=== PATIENT | male | born 1930 | race Caucasian/White ===

== ENCOUNTER 2017-03-01 13:00 | Inpatient (IN) | payer MEDICARE, OTHER ==
[2017-03-01] MEDS ORDERED: Sodium Chloride 0.9% 5 ML Syringe FLUSH PRN (18:13)
--- NOTE | 2017-03-02 10:42 | PCM.HP ---
H&P History of Present Illness - General Date of Service: 03/02/17 Admit Problem/Dx: Admission Diagnosis/Problem Admission Diagnosis/Problem Weakness of limb Source of Information: Patient, Old Records History Limitations: Reports: No Limitations. Denies: Altered Mental Status left foot Pain Score (Numeric/FACES): 7 - Related Data Allergies/Adverse Reactions: Allergies Allergy/AdvReac Type Severity Reaction Status Date / Time No Known Allergies Allergy Verified 01/08/16 05:59 Home Medications: Home Meds Atenolol [Tenormin] 25 mg PO 1800 11/14/13 [History] Insulin Glargine,Hum.Rec.Anlog [Lantus Solostar] 24 units SQ DAILY 11/14/13 [ History] Sertraline [Zoloft] 50 mg PO BEDTIME 11/14/13 [History] Simvastatin [Zocor] 20 mg PO BEDTIME 11/14/13 [History] Lisinopril 10 mg PO 1800 01/11/16 [History] Aspirin [Ecotrin] 81 mg PO 1800 03/01/17 [History] Clopidogrel [Plavix] 75 mg PO 1800 03/01/17 [History] Lutein/Minerals/Vit A,C & E [Ocuvite] 1 tab PO BID 03/02/17 [History] Past Medical History HEENT History: Reports: Cataract, Impaired Vision Cardiovascular History: Reports: Bypass, CAD, Hypertension Gastrointestinal History: Reports: Chronic Constipation Musculoskeletal History: Reports: Osteoarthritis Psychiatric History: Reports: Depression Endocrine/Metabolic History: Reports: Diabetes, Type II - Past Surgical History HEENT Surgical History: Reports: Cataract Surgery, Tonsillectomy Cardiovascular Surgical History: Reports: Coronary Artery Bypass, Valve Replacement, Other (See Below) Social & Family History - Tobacco Use Smoking Status *Q: Former Smoker Years of Tobacco use: 40 Used Tobacco, but Quit: Yes Month Tobacco Last Used: 1978 Second Hand Smoke Exposure: No - Alcohol Use Days Per Week of Alcohol Use: 0 - Recreational Drug Use Recreational Drug Use: No - Living Situation & Occupation Living situation: Reports: Occupation: Disabled H&P Review of Systems - Review of Systems: Review Of Systems: See Below General: Reports: No Symptoms HEENT: Denies: Dysphasia, Hearing Changes, Sore Throat Pulmonary: Reports: No Symptoms Cardiovascular: Reports: No Symptoms Gastrointestinal: Reports: No Symptoms Genitourinary: Reports: No Symptoms Musculoskeletal: Reports: Other (Pain left great toe--stubbed it, left arm and left hand weakness) Skin: Reports: No Symptoms Psychiatric: Reports: No Symptoms Neurological: Reports: Numbness (Tingling sensation left hand), Pre-Existing Deficit, Weakness (Left arm and left hand), Other (Slight slurring of speech). Denies: Confusion, Dizziness, Headache, Paresthesia, Seizure, Syncope, Tremors Hematologic/Lymphatic: Reports: No Symptoms Immunologic: Reports: No Symptoms Exam - Exam Exam: See Below - Vital Signs Vital Signs: Last Vital Signs Temp 96.9 F 03/02/17 06:00 Pulse 64 03/02/17 06:00 Resp 16 03/02/17 06:00 BP 136/57 L 03/02/17 06:00 Pulse Ox 97 03/02/17 06:00 Weight: 200 lb - Exam Quality Assessment: No: Supplemental Oxygen General: Alert, Oriented, Cooperative, Mild Distress Neck: Supple, Carotid Bruit. No: JVD Lungs: Clear to Auscultation, Normal Respiratory Effort Cardiovascular: Systolic Murmur Abdomen: Normal Bowel Sounds, Soft Back Exam: No: CVA Tenderness (R) Peripheral Pulses: 1+: Radial (L), Radial (R) Skin: Warm, Dry, Intact Neurological: Sensation Intact, Focal Deficit. No: Strength Equal Bilateral ( Left hand 3/5 weakness), Normal Speech (Noticeable slight dysarthria, right- sided facial) Neuro Extensive - Mental Status: Alert, Normal Mood/Affect, Normal Cognition, Memory Intact Psychiatric: Alert, Normal Affect, Normal Mood - Patient Data Lab Results Last 24 hrs: Laboratory Results - last 24 hr 03/01/17 03/01/17 03/02/17 Range/Units 17:44 18:30 06:15 WBC (5.0-10.0) 10^3/uL RBC (4.50-6.00) 10^6/uL Hgb (13.0-17.0) g/dL Hct (40.0-52.0) % MCV (82.0-92.0) fL MCH (27.0-31.0) pg MCHC (32.0-36.0) g/dL RDW (11.5-14.5) % Plt Count (150-300) 10^3/uL MPV (7.4-10.4) fL Neut % (Auto) (50.0-70.0) % Lymph % (Auto) (20.0-40.0) % [place] % (Auto) (2.0-8.0) % Eos % (Auto) (1.0-3.0) % Baso % (Auto) (0.0-1.0) % Neut # (Auto) (2.5-7.0) 10^3/uL Lymph # (Auto) (1.0-4.0) 10^3/uL Nicol[place] # (Auto) (0.1-0.8) 10^3/uL Eos # (Auto) (0.1-0.3) 10^3/uL Baso # (Auto) (0.0-0.1) 10^3/uL POC Glucose 100 110 H (74-106) mg/dl Specimen Type Urinvoid Urine Color Yellow (YELLOW) Urine Appearance Clear (CLEAR) Urine pH 5.0 (5.0-9.0) Ur Specific [place] 1.015 (1.005-1.030) Urine Protein Trace H (NEGATIVE) mg/dL Urine Glucose (UA) Negative (NEGATIVE) mg/dL Urine Ketones Negative (NEGATIVE) mg/dL Urine Occult Blood Trace-intact H (NEGATIVE) Urine Nitrite Negative (NEGATIVE) Urine Bilirubin Negative (NEGATIVE) Urine Urobilinogen 0.2 (0.2-1.0) E.U./dL Ur Leukocyte Esterase Negative (NEGATIVE) Urine RBC 0-5 /HPF Urine WBC 0-5 /HPF Ur Epithelial Cells Rare /LPF Urine Bacteria Rare (NONE TO FEW) /HPF Urine Mucus Rare H (NEGATIVE) /LPF 03/02/17 Range/Units 07:10 WBC 10.3 H (5.0-10.0) 10^3/uL RBC 4.11 L (4.50-6.00) 10^6/uL Hgb 11.1 L (13.0-17.0) g/dL Hct 32.4 L (40.0-52.0) % MCV 78.8 L (82.0-92.0) fL MCH 27.1 (27.0-31.0) pg MCHC 34.3 (32.0-36.0) g/dL RDW 14.4 (11.5-14.5) % Plt Count 217 (150-300) 10^3/uL MPV 8.0 (7.4-10.4) fL Neut % (Auto) 77.3 H (50.0-70.0) % Lymph % (Auto) 10.1 L (20.0-40.0) % Nicol[place] % (Auto) 10.3 H (2.0-8.0) % Eos % (Auto) 1.9 (1.0-3.0) % Baso % (Auto) 0.4 (0.0-1.0) % Neut # (Auto) 8.0 H (2.5-7.0) 10^3/uL Lymph # (Auto) 1.0 (1.0-4.0) 10^3/uL [place] # (Auto) 1.1 H (0.1-0.8) 10^3/uL Eos # (Auto) 0.2 (0.1-0.3) 10^3/uL Baso # (Auto) 0.0 (0.0-0.1) 10^3/uL POC Glucose (74-106) mg/dl Specimen Type Urine Color (YELLOW) Urine Appearance (CLEAR) Urine pH (5.0-9.0) Ur Specific [place] (1.005-1.030) Urine Protein (NEGATIVE) mg/dL Urine Glucose (UA) (NEGATIVE) mg/dL Urine Ketones (NEGATIVE) mg/dL Urine Occult Blood (NEGATIVE) Urine Nitrite (NEGATIVE) Urine Bilirubin (NEGATIVE) Urine Urobilinogen (0.2-1.0) E.U./dL Ur Leukocyte Esterase (NEGATIVE) Urine RBC /HPF Urine WBC /HPF Ur Epithelial Cells /LPF Urine Bacteria (NONE TO FEW) /HPF Urine Mucus (NEGATIVE) /LPF Result Diagrams: 03/04/17 07:20 03/04/17 07:20 *Q Meaningful Use (ADM) - VTE *Q VTE Criteria *Q: - Stroke *Q Stroke Criteria *Q: - AMI *Q AMI Criteria *Q: Problem List Initiated/Reviewed/Updated: Yes Orders Last 24hrs: Active Orders 24 hr Category Date Time Status Patient Status [ADT] Routine ADT 03/01/17 17:00 Ordered Blood Glucose Check, Bedside [RC] 0700,1700 Care 03/01/17 17:30 Active Up With Assistance [RC] ASDIRECTED Care 03/01/17 18:13 Active Vital Signs [RC] Q8HR Care 03/01/17 22:00 Active Regular Diet [DIET] Diet 03/01/17 Dinner Active CULTURE BLOOD [BC] PRN Lab 03/01/17 18:25 Ordered CULTURE BLOOD [BC] PRN Lab 03/01/17 18:25 Ordered Sodium Chloride 0.9% [Syrex Flush] Med 03/01/17 18:13 Active 5 ml FLUSH Q8H PRN Blood Culture x2 Reflex Set [OM.PC] PRN Oth 03/01/17 18:25 Ordered Saline Lock Insert [OM.PC] Routine Oth 03/01/17 18:13 Ordered Resuscitation Status Routine Resus Stat 03/01/17 18:13 Ordered Medication Orders Sodium Chloride (Syrex Flush) 5 ml FLUSH Q8H PRN PRN Reason: Keep Vein Open Assessment/Plan Comment:: HISTORY OF PRESENT ILLNESS This 87-year-old gentleman was admitted yesterday due to having some weakness in his left leg with slight elevation in his white blood cell count 11.4 yesterday at the [facility]. The patient states approximately 2-3 weeks ago he noticed numbness and weakness into his left arm and numbness extending into his right hand making it difficult to hold any objects. He also fell about 3 days ago while gardening--he contributes to falling due to left leg weakness. He also stubbed his toe on his walker. When he fell he denied hitting his head or losing any consciousness however he did injure his left elbow with this noticeable skin tear. Back in September 2016 the patient presented via ground ambulance [facility] for questionable TIA symptoms in which he had right hand weakness, left eyelid drooping and left facial drooping. At that time the patient stated that he woke up out of his sleep with the symptoms however he had went to bed that evening without any symptoms. He had a head CT at that time which was negative and a carotid artery Doppler ultrasound which showed 70% stenosis of the right carotid artery or greater. He spent a couple days in the hospital he seemed to improve with his right hand back to normal at that time he had no speech changes no headaches or weakness or numbness or visual changes and he was discharged with the pending MRI scheduled. A few days after discharge patient did have his simvastatin decreased along with his Zetia which was discontinued as there was some thought his symptoms were more muscular related rather than neurovascular. He was to follow-up with Dr. Morales--vascular surgeon. Consultation with Dr. Morales, vascular surgeon indicated his symptoms at that time were likely due to left internal carotid artery stenosis and was to be managed medically which included changing from aspirin to Plavix and have him evaluated by neurology. Due to his age and lack of symptoms at that time there was no carotid intervention that was recommended. His neurology appointment is in April Head CT without contrast dated March 01, 2017; focal areas of decreased density right side superior aspect of right thalamus extending into posterior right frontal white matter--consistent with an infarct however appears old however new since comparable studies September 2016. CT brain dated September 2016, mild central and cortical cerebral atrophy and diffuse nonspecific degenerative white matter disease however no current evidence of intracranial mass hemorrhage or acute infarct MRI, brain without contrast, dated September 2016, (due to right hand weakness), Diffuse microvascular disease Communicating hydrocephalus, as noted with subependymal fluid resorption No MRI evidence of acute infarct Carotid artery ultrasound, dated October 2016, right internal carotid artery greater then 70% stenosis, left internal carotid artery less than 50% stenosis, right vertebral artery antegrade CODE STATUS, DO NOT RESUSCITATE IMPRESSION/PLAN Left-sided weakness, questionable etiology, PT consult today, continue with aspirin and Plavix, neurology appointment April, patient will have to be evaluated sooner Bilateral carotid artery stenosis, medically managed, Leukocytosis, mild, without identifiable occult infection, Chronic kidney disease, stage III, creatinine clearance approximately 25 History of possible TIA Diabetes mellitus, stable, Hypertension, stable, continue with TRAVIS inhibitor and atenolol Depression, stable, continue with Zoloft Hyperlipidemia, stable, may benefit from increased anti-inflammatory statin even though LDLs are low Aortic stenosis, asymptomatic
[2017-03-02] MEDS: Insulin Detemir 100 Units/ML 3 ML Pen SUBCUT SCH (11:39)
[2017-03-02] MEDS: Clopidogrel 75 MG Tab PO SCH (18:08)
[2017-03-02] MEDS: Aspirin 81 MG Tab.EC PO SCH (18:08)
[2017-03-02] MEDS: Lisinopril 10 MG Tab PO SCH (18:08)
[2017-03-02] MEDS: Atenolol 25 MG Tab PO SCH (18:09)
[2017-03-02] MEDS: Sertraline 50 MG Tab PO SCH (20:18)
[2017-03-02] MEDS: Simvastatin 20 MG Tab PO SCH (20:18)
[2017-03-03] MEDS: Insulin Detemir 100 Units/ML 3 ML Pen SUBCUT SCH (08:34)
--- NOTE | 2017-03-03 10:15 | PCM.PN ---
- General Info Date of Service: 03/03/17 Functional Status: Reports: pain controlled - Review of Systems General: Reports: Weakness (Left-sided upper extremity and lower extremity weakness) HEENT: Reports: no symptoms Pulmonary: Reports: no symptoms Cardiovascular: Reports: No Symptoms Gastrointestinal: Reports: No symptoms Genitourinary: Reports: no symptoms Musculoskeletal: Reports: other (Slight pain left great toe after stubbing). Denies: joint swelling Skin: Reports: other (Skin avulsion left elbow) Neurological: Reports: Pre-Existing Deficit, Difficulty Walking, Weakness (Left- sided upper extremity weakness), Change in Speech, Gait Disturbance. Denies: Confusion, Dizziness, Headache, Numbness Psychiatric: Reports: no symptoms - Patient Data Vitals - most recent: Last Vital Signs Temp 97.3 F 03/03/17 06:57 Pulse 54 L 03/03/17 06:57 Resp 16 03/03/17 06:57 BP 141/54 H 03/03/17 06:57 Pulse Ox 97 03/03/17 06:57 Weight - most recent: 200 lb I&O - last 24 hours: Intake & Output 03/02/17 03/03/17 03/03/17 22:59 06:59 14:59 Intake Total 340 200 Output Total 750 400 Balance -410 -200 Lab Results last 24 hrs: Laboratory Results - last 24 hr 03/03/17 Range/Units 06:17 POC Glucose 118 H (74-106) mg/dl Med Orders - Current: Current Medications Aspirin (Halfprin) 81 mg PO 1800 [facility] Last Admin: 03/02/17 18:08 Dose: 81 mg Atenolol (Tenormin) 25 mg PO 1800 [facility] Last Admin: 03/02/17 18:09 Dose: 25 mg Clopidogrel Bisulfate (Plavix) 75 mg PO 1800 [facility] Last Admin: 03/02/17 18:08 Dose: 75 mg Insulin Detemir (Levemir) 24 unit SUBCUT DAILY [facility] Last Admin: 03/03/17 08:34 Dose: 24 units Lisinopril (Prinivil) 10 mg PO 1800 [facility] Last Admin: 03/02/17 18:08 Dose: 10 mg Sertraline HCl (Zoloft) 50 mg PO BEDTIME [facility] Last Admin: 03/02/17 20:18 Dose: 50 mg Simvastatin (Zocor) 20 mg PO BEDTIME [facility] Last Admin: 03/02/17 20:18 Dose: 20 mg Sodium Chloride (Syrex Flush) 5 ml FLUSH Q8H PRN PRN Reason: Keep Vein Open - Exam Quality Assessment: No: supplemental oxygen General: alert, oriented, cooperative, no acute distress HEENT: Pupils equal, Pupils reactive, EOMI, Mucous membr. moist/pink Neck: supple Lungs: Clear to auscultation, Normal respiratory effort Cardiovascular: Murmurs Abdomen: bowel sounds present, soft, no tenderness, no distension Peripheral Pulses: 2+: Radial (L), Radial (R) Skin: other (Healing skin avulsion left elbow--present on admission due to fall) Neurological: normal tone, reflexes equal bilateral, sensation intact. No: normal gait, normal speech (Slight slurring on "S" sounds), strength equal bilateral (Fair [id number] test--on right side good on left, poor tracking of fingers,) Psy/Mental Status: alert, normal affect, normal mood. No: agitated - Problem List Review Problem List Initiated/Reviewed/Updated: Yes - My Orders Last 24 Hours: My Active Orders 03/02/17 10:46 Consult to Physical Therapy [PT Evaluation and Treatment] [CONS] Routine 03/02/17 11:00 Insulin Detemir [Levemir] 24 unit SUBCUT DAILY 03/02/17 11:39 Blood Glucose Check, Bedside [RC] 0700 03/02/17 13:00 Admission Status [Patient Status] [ADT] Routine 03/02/17 18:00 Aspirin [Halfprin] 81 mg PO 1800 Atenolol [Tenormin] 25 mg PO 1800 Clopidogrel [Plavix] 75 mg PO 1800 Lisinopril [Prinivil] 10 mg PO 1800 03/02/17 21:00 Sertraline [Zoloft] 50 mg PO BEDTIME Simvastatin [Zocor] 20 mg PO BEDTIME - Plan Plan:: HISTORY OF PRESENT ILLNESS This 87-year-old gentleman was admitted yesterday due to having some weakness in his left leg with slight elevation in his white blood cell count 11.4 yesterday at the [facility]. The patient states approximately 2-3 weeks ago he noticed numbness and weakness into his left arm and numbness extending into his right hand making it difficult to hold any objects. He also fell about 3 days ago while gardening--he contributes to falling due to left leg weakness. He also stubbed his toe on his walker. When he fell he denied hitting his head or losing any consciousness however he did injure his left elbow with this noticeable skin tear. Back in September 2016 the patient presented via ground ambulance [facility] for questionable TIA symptoms in which he had right hand weakness, left eyelid drooping and left facial drooping. At that time the patient stated that he woke up out of his sleep with the symptoms however he had went to bed that evening without any symptoms. He had a head CT at that time which was negative and a carotid artery Doppler ultrasound which showed 70% stenosis of the right carotid artery or greater. He spent a couple days in the hospital he seemed to improve with his right hand back to normal at that time he had no speech changes no headaches or weakness or numbness or visual changes and he was discharged with the pending MRI scheduled. A few days after discharge patient did have his simvastatin decreased along with his Zetia which was discontinued as there was some thought his symptoms were more muscular related rather than neurovascular. He was to follow-up with Dr. Morales--vascular surgeon. Consultation with Dr. Morales, vascular surgeon indicated his symptoms at that time were likely due to left internal carotid artery stenosis and was to be managed medically which included changing from aspirin to Plavix and have him evaluated by neurology. Due to his age and lack of symptoms at that time there was no carotid intervention that was recommended. His neurology appointment is in [place] Head CT without contrast dated March 01, 2017; focal areas of decreased density right side superior aspect of right thalamus extending into posterior right frontal white matter--consistent with an infarct however appears old however new since comparable studies September 2016. CT brain dated September 2016, mild central and cortical cerebral atrophy and diffuse nonspecific degenerative white matter disease however no current evidence of intracranial mass hemorrhage or acute infarct MRI, brain without contrast, dated September 2016, (due to right hand weakness), Diffuse microvascular disease Communicating hydrocephalus, as noted with subependymal fluid resorption No MRI evidence of acute infarct Carotid artery ultrasound, dated October 2016, right internal carotid artery greater then 70% stenosis, left internal carotid artery less than 50% stenosis, right vertebral artery antegrade CODE STATUS, DO NOT RESUSCITATE IMPRESSION/PLAN Left-sided weakness--likely due to CVA, some slight improvement today, noticeable dysarthria with "S" sounds, PT will evaluate the patient today to determine the level of mcfp care needed. continue with aspirin and Plavix, neurology appointment April. Bilateral carotid artery stenosis, medically managed due to comorbidities last age Leukocytosis, mild, without identifiable occult infection--improving. No fever. Chronic kidney disease, stage III, creatinine clearance approximately 25 History of possible TIA Diabetes mellitus, stable, Hypertension, stable, continue with TRAVIS inhibitor and atenolol Depression, stable, continue with Zoloft Hyperlipidemia, stable, may benefit from increased anti-inflammatory statin even though LDLs are low Aortic stenosis, asymptomatic Overall plan, management risk factors, statins, antihypertensives, blood glucose control, DAPT. Will see if patient can qualify for [facility] care either at [facility] or long-term care facility.
[2017-03-03] MEDS: Aspirin 81 MG Tab.EC PO SCH (17:31)
[2017-03-03] MEDS: Clopidogrel 75 MG Tab PO SCH (17:31)
[2017-03-03] MEDS: Lisinopril 10 MG Tab PO SCH (17:39)
[2017-03-03] MEDS: Atenolol 25 MG Tab PO SCH (17:40)
[2017-03-03] MEDS: Sertraline 50 MG Tab PO SCH (20:49)
[2017-03-03] MEDS: Simvastatin 20 MG Tab PO SCH (20:49)
[2017-03-04] MEDS: Insulin Detemir 100 Units/ML 3 ML Pen SUBCUT SCH (08:50)
--- NOTE | 2017-03-04 11:23 | PCM.PN ---
- General Info Date of Service: 03/04/17 Functional Status: Reports: pain controlled, tolerating diet. Denies: urinating , new symptoms - Review of Systems General: Reports: Weakness (left lower extremity and left upper extremity) HEENT: Reports: no symptoms Pulmonary: Reports: no symptoms Cardiovascular: Reports: No Symptoms Gastrointestinal: Reports: No symptoms Musculoskeletal: Reports: other (bilateral knee pain) Skin: Reports: other (skin tear left elbow) Neurological: Reports: Pre-Existing Deficit, Difficulty Walking, Weakness (left upper and lower extremity), Gait Disturbance. Denies: Confusion, Dizziness, Headache, Numbness, Change in Speech (mild residual dysarthric speech) - Patient Data Vitals - most recent: Last Vital Signs Temp 97 F 03/04/17 04:53 Pulse 55 L 03/04/17 04:53 Resp 18 03/04/17 04:53 BP 151/52 H 03/04/17 04:53 Pulse Ox 97 03/04/17 04:53 Weight - most recent: 200 lb I&O - last 24 hours: Intake & Output 03/03/17 03/04/17 03/04/17 22:59 06:59 14:59 Intake Total 680 100 Output Total 400 950 Balance 280 -850 Lab Results last 24 hrs: Laboratory Results - last 24 hr 03/04/17 03/04/17 03/04/17 Range/Units 06:06 07:20 07:20 WBC 10.9 H (5.0-10.0) 10^3/uL RBC 4.27 L (4.50-6.00) 10^6/uL Hgb 11.3 L (13.0-17.0) g/dL Hct 33.4 L (40.0-52.0) % MCV 78.2 L (82.0-92.0) fL MCH 26.5 L (27.0-31.0) pg MCHC 33.8 (32.0-36.0) g/dL RDW 14.3 (11.5-14.5) % Plt Count 214 (150-300) 10^3/uL MPV 8.2 (7.4-10.4) fL Neut % (Auto) 76.0 H (50.0-70.0) % Lymph % (Auto) 10.7 L (20.0-40.0) % [place] % (Auto) 9.9 H (2.0-8.0) % Eos % (Auto) 3.1 H (1.0-3.0) % Baso % (Auto) 0.3 (0.0-1.0) % Neut # (Auto) 8.3 H (2.5-7.0) 10^3/uL Lymph # (Auto) 1.2 (1.0-4.0) 10^3/uL [place] # (Auto) 1.1 H (0.1-0.8) 10^3/uL Eos # (Auto) 0.3 (0.1-0.3) 10^3/uL Baso # (Auto) 0.0 (0.0-0.1) 10^3/uL Sodium 139 (136-145) mmol/L Potassium 4.7 (3.3-5.3) mmol/L Chloride 105 (98-115) mmol/L Carbon Dioxide 25.1 (21.0-32.0) mmol/L BUN 37 H (6-25) mg/dL Creatinine 1.48 H (0.51-1.17) mg/dL Est Cr Clr Drug Dosing 31.17 mL/min Estimated GFR (MDRD) 45 mL/min Glucose 103 (70-110) mg/dL POC Glucose 103 (74-106) mg/dl Calcium 8.5 L (8.7-10.3) mg/dL Med Orders - Current: Current Medications Aspirin (Halfprin) 81 mg PO 1800 [facility] Last Admin: 03/03/17 17:31 Dose: 81 mg Atenolol (Tenormin) 25 mg PO 1800 [facility] Last Admin: 03/03/17 17:40 Dose: 25 mg Clopidogrel Bisulfate (Plavix) 75 mg PO 1800 [facility] Last Admin: 03/03/17 17:31 Dose: 75 mg Insulin Detemir (Levemir) 24 unit SUBCUT DAILY [facility] Last Admin: 03/04/17 08:50 Dose: 24 units Lisinopril (Prinivil) 10 mg PO 1800 [facility] Last Admin: 03/03/17 17:39 Dose: 10 mg Sertraline HCl (Zoloft) 50 mg PO BEDTIME [facility] Last Admin: 03/03/17 20:49 Dose: 50 mg Simvastatin (Zocor) 20 mg PO BEDTIME [facility] Last Admin: 03/03/17 20:49 Dose: 20 mg Sodium Chloride (Syrex Flush) 5 ml FLUSH Q8H PRN PRN Reason: Keep Vein Open - Exam Quality Assessment: No: supplemental oxygen General: alert, oriented Neck: supple Lungs: Clear to auscultation, Normal respiratory effort Cardiovascular: Regular Rate, Regular Rhythm Abdomen: bowel sounds present, soft, no tenderness, no distension Extremities: no edema Skin: other (healing avulsion left elbow) Wound/Incisions: healing well, drainage. No: erythema Neurological: no new focal deficit, normal tone, reflexes equal bilateral, sensation intact, cranial nerves intact. No: normal gait, normal speech ( improving speech however slightly dysarthric with S sounds) Psy/Mental Status: alert, normal affect, normal mood - Problem List Review Problem List Initiated/Reviewed/Updated: Yes - Plan Plan:: HISTORY OF PRESENT ILLNESS This 87-year-old gentleman was admitted yesterday due to having some weakness in his left leg with slight elevation in his white blood cell count 11.4 yesterday at the [facility]. The patient states approximately 2-3 weeks ago he noticed numbness and weakness into his left arm and numbness extending into his right hand making it difficult to hold any objects. He also fell about 3 days ago while gardening--he contributes to falling due to left leg weakness. He also stubbed his toe on his walker. When he fell he denied hitting his head or losing any consciousness however he did injure his left elbow with this noticeable skin tear. Back in September 2016 the patient presented via ground ambulance [facility] for questionable TIA symptoms in which he had right hand weakness, left eyelid drooping and left facial drooping. At that time the patient stated that he woke up out of his sleep with the symptoms however he had went to bed that evening without any symptoms. He had a head CT at that time which was negative and a carotid artery Doppler ultrasound which showed 70% stenosis of the right carotid artery or greater. He spent a couple days in the hospital he seemed to improve with his right hand back to normal at that time he had no speech changes no headaches or weakness or numbness or visual changes and he was discharged with the pending MRI scheduled. A few days after discharge patient did have his simvastatin decreased along with his Zetia which was discontinued as there was some thought his symptoms were more muscular related rather than neurovascular. He was to follow-up with Dr. Morales--vascular surgeon. Consultation with Dr. Morales, vascular surgeon indicated his symptoms at that time were likely due to left internal carotid artery stenosis and was to be managed medically which included changing from aspirin to Plavix and have him evaluated by neurology. Due to his age and lack of symptoms at that time there was no carotid intervention that was recommended. His neurology appointment is in April Head CT without contrast dated March 01, 2017; focal areas of decreased density right side superior aspect of right thalamus extending into posterior right frontal white matter--consistent with an infarct however appears old however new since comparable studies September 2016. CT brain dated September 2016, mild central and cortical cerebral atrophy and diffuse nonspecific degenerative white matter disease however no current evidence of intracranial mass hemorrhage or acute infarct MRI, brain without contrast, dated September 2016, (due to right hand weakness), Diffuse microvascular disease Communicating hydrocephalus, as noted with subependymal fluid resorption No MRI evidence of acute infarct Carotid artery ultrasound, dated October 2016, right internal carotid artery greater then 70% stenosis, left internal carotid artery less than 50% stenosis, right vertebral artery antegrade CODE STATUS, DO NOT RESUSCITATE IMPRESSION/PLAN cerebrovascular accident, 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 continue with aspirin and Plavix, neurology appointment April. Bilateral carotid artery stenosis, medically managed due to comorbidities. Leukocytosis, mild, without identifiable occult infection--improving. No fever. Chronic kidney disease, stage 3, creatinine clearance approximately 25 History of possible TIA Diabetes mellitus, stable, Hypertension, stable, continue with TRAVIS inhibitor and atenolol Depression, stable, continue with Zoloft Hyperlipidemia, stable, likely will not benefit from increase in statin therapy. Aortic stenosis, asymptomatic Overall plan, Will place in swing bed therapy tomorrow for care home care. continue with acute care due to high risk of ongoing CVA sequela since he had CVA while on dual antiplatelet therapy
[2017-03-04] MEDS: Aspirin 81 MG Tab.EC PO SCH (18:18)
[2017-03-04] MEDS: Clopidogrel 75 MG Tab PO SCH (18:18)
[2017-03-04] MEDS: Lisinopril 10 MG Tab PO SCH (18:19)
[2017-03-04] MEDS: Atenolol 25 MG Tab PO SCH (18:19)
[2017-03-04] MEDS: Simvastatin 20 MG Tab PO SCH (20:42)
[2017-03-04] MEDS: Sertraline 50 MG Tab PO SCH (20:42)
[2017-03-05 06:47] VITALS: BP 153/62
[2017-03-05] MEDS ORDERED: Acetaminophen 325 MG Tab PO PRN (08:13)
[2017-03-05] MEDS: Insulin Detemir 100 Units/ML 3 ML Pen SUBCUT SCH (09:35)
--- NOTE | 2017-03-05 09:37 | PCM.DCSUM1 ---
Discharge Summary - Hospital Course Brief History: This 87-year-old gentleman was initially admitted due to having some weakness in his left leg with slight elevation in his white blood cell count without an obvious identifiable infection. upon admission to acute care he stated about 2 weeks prior to admission he noticed numbness and weakness into his left arm and numbness extending into his left hand making it difficult to hold any objects. 3 days prior to being admitted and evaluated he stated he sustained a fall while gardening she contributes to left leg weakness--denying any head injury. during that fall he injured his left elbow, and his left wrist sustaining avulsion tear of his left elbow. patient does have histories of previous TIAs in September 2016 and has been evaluated by Dr. Morales, vascular surgeon indicated his symptoms at that time were likely due to left internal carotid artery stenosis and was to be managed medically which included changing from aspirin to Plavix and have him evaluated by neurology. Due to his age and lack of symptoms at that time there was no carotid surgical intervention that was recommended. he is also scheduled in April to see a neurologist. - Discharge Data Discharge Date: 03/05/17 Discharge Disposition: DC/Tfer W/I Hosp To Swing 61 Condition: Good - Patient Summary/Data Complications: none Consults: Consultations 03/02/17 10:46 Consult to Physical Therapy [PT Evaluation and Treatment] [CONS] Routine 03/04/17 11:54 Consult to Speech Language Pathology [CRUISE DIRECTOR Evaluation and Treatment] [CONS] Routine Hospital Course: patient's hospital course went well, he had no complications however he did improve on his neurological assessment including slightly improved his speech and less facial drooping. He still has a left-sided weakness and residual and will receive physical therapy. He did complain of left wrist pain however x- rays were negative for any fractures his pain likely contributed to when he fell in his garden prior to being admitted. No edema or swelling however some bilateral tenderness around his left wrist. He never became hemodynamically unstable, he never sustained a fall while in the hospital, he did receive physical therapy and they felt 4-6 weeks of rehabilitation. He is at a substantial fall risk. We felt increasing his statin dose most likely would not be any added benefit to him. - Discharge Plan Home Medications: Home Meds Atenolol [Tenormin] 25 mg PO 1800 11/14/13 [History] Insulin Glargine,Hum.Rec.Anlog [Lantus Solostar] 24 units SQ DAILY 11/14/13 [ History] Sertraline [Zoloft] 50 mg PO BEDTIME 11/14/13 [History] Simvastatin [Zocor] 20 mg PO BEDTIME 11/14/13 [History] Lisinopril 10 mg PO 1800 01/11/16 [History] Aspirin [Ecotrin] 81 mg PO 1800 03/01/17 [History] Clopidogrel [Plavix] 75 mg PO 1800 03/01/17 [History] Lutein/Minerals/Vit A,C & E [Ocuvite] 1 tab PO BID 03/02/17 [History] - Discharge Summary/Plan Comment DC Time >30 min.: Yes Discharge Summary/Plan Comment: final diagnosis CVA; right thalamus extending into posterior right frontal white matter, Bilateral carotid artery stenosis Chronic kidney disease, stage 3 History of possible TIA Diabetes mellitus, stable, Hypertension, stable, Depression, stable, Hyperlipidemia, stable, Aortic stenosis, asymptomatic disposition Due to the patient's CVA he will require 4-6 weeks of [facility] facility for rehabilitation. Patient desires to be placed in swing bed status here at [facility] - Patient Data Vitals - Most Recent: Last Vital Signs Temp 97.3 F 03/05/17 06:46 Pulse 71 03/05/17 06:46 Resp 20 03/05/17 06:46 BP 153/62 H 03/05/17 06:46 Pulse Ox 97 03/05/17 06:46 Weight - Most Recent: 200 lb I&O - Last 24 hours: Intake & Output 03/04/17 03/05/17 03/05/17 22:59 06:59 14:59 Intake Total 380 100 Output Total 1000 1100 Balance -620 -1000 Lab Results - Last 24 hrs: Laboratory Results - last 24 hr 03/05/17 Range/Units 05:58 POC Glucose 130 H (74-106) mg/dl Med Orders - Current: Current Medications Acetaminophen (Tylenol) 650 mg PO Q4H PRN PRN Reason: Pain Aspirin (Halfprin) 81 mg PO 1800 [facility] Last Admin: 03/04/17 18:18 Dose: 81 mg Atenolol (Tenormin) 25 mg PO 1800 [facility] Last Admin: 03/04/17 18:19 Dose: 25 mg Clopidogrel Bisulfate (Plavix) 75 mg PO 1800 [facility] Last Admin: 03/04/17 18:18 Dose: 75 mg Insulin Detemir (Levemir) 24 unit SUBCUT DAILY [facility] Last Admin: 03/04/17 08:50 Dose: 24 units Lisinopril (Prinivil) 10 mg PO 1800 [facility] Last Admin: 03/04/17 18:19 Dose: 10 mg Sertraline HCl (Zoloft) 50 mg PO BEDTIME [facility] Last Admin: 03/04/17 20:42 Dose: 50 mg Simvastatin (Zocor) 20 mg PO BEDTIME [facility] Last Admin: 03/04/17 20:42 Dose: 20 mg Sodium Chloride (Syrex Flush) 5 ml FLUSH Q8H PRN PRN Reason: Keep Vein Open *Q Meaningful Use (DIS) - VTE *Q VTE Criteria *Q: - Stroke *Q Stroke Criteria *Q: - AMI *Q AMI Criteria *Q:
== END 2017-03-05 09:15 | disposition swing bed (61) | DRG 65 ==
LOC: KA.MS 13:00 → OBSVTOIN 03-02 13:00
PROVIDERS: ADMIT Internal Medicine; ATTEND Family Medicine
DX: I63.9 Cerebral infarction, unspecified (principal); G81.94 Hemiplegia, unspecified affecting left nondominant side; D72.829 Elevated white blood cell count, unspecified; I65.23 Occlusion and stenosis of bilateral carotid arteries; I12.9 Hypertensive chronic kidney disease with stage 1 through stage 4 chronic kidney disease, or unspecified chronic kidney disease; N18.3 Chronic kidney disease, stage 3 (moderate); E11.9 Type 2 diabetes mellitus without complications; E78.5 Hyperlipidemia, unspecified; I35.0 Nonrheumatic aortic (valve) stenosis; F32.9 Major depressive disorder, single episode, unspecified; I25.10 Atherosclerotic heart disease of native coronary artery without angina pectoris; S51.002A Unspecified open wound of left elbow, initial encounter; W18.39XA Other fall on same level, initial encounter; Z95.5 Presence of coronary angioplasty implant and graft; Y92.017 Garden or yard in single-family (private) house as the place of occurrence of the external cause; Z66 Do not resuscitate; Z95.1 Presence of aortocoronary bypass graft; Z79.82 Long term (current) use of aspirin; Z79.4 Long term (current) use of insulin; Z79.899 Other long term (current) drug therapy; Z87.891 Personal history of nicotine dependence; Z91.81 History of falling; R53.1 Weakness; R29.6 Repeated falls
CPT/HCPCS: 36415; 70450; 71020; 81001; 82962 ×2; 85025; G0378; G0379; J1815; 73110-LT; 80048; 97110-GP; 97162-GP; A9270-GY; G0283-GP

== ENCOUNTER 2017-03-05 08:41 | Inpatient (IN) | payer MEDICARE, OTHER ==
[2017-03-05] MEDS ORDERED: Sodium Chloride 0.9% 5 ML Syringe FLUSH PRN (10:06)
--- NOTE | 2017-03-05 10:16 | PCM.HP ---
H&P History of Present Illness - General Date of Service: 03/05/17 Admit Problem/Dx: Admission Diagnosis/Problem Admission Diagnosis/Problem CVA, Cerebrovascular accident Source of Information: Patient, Provider, RN History Limitations: Reports: No Limitations - History of Present Illness Initial Comments - Free Text/Narative: 87-year-old gentleman was initially admitted due to having some weakness in his left leg with mild elevation in his white blood cell count at [facility]. 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 He also admitted to falling 3 days prior to admission while he was gardening however he denied hitting his head. He did sustain a left elbow avulsion and a contusion to his left wrist. When he fell he denied hitting his head or losing any consciousness September 2016 the patient presented via ground ambulance [facility] for questionable TIA symptoms in which he had right hand weakness, left eyelid drooping and left facial drooping. At that time the patient stated that he woke up out of his sleep with the symptoms however he had went to bed that evening without any symptoms. head CT at that time was negative and a carotid artery Doppler ultrasound which showed 70% stenosis of the right carotid artery or greater. He spent a couple days in the hospital he seemed to improve with his right hand back to normal at that time he had no speech changes no headaches or weakness or numbness or visual changes and he was discharged with the pending MRI scheduled. A few days after discharge patient did have his simvastatin decreased along with his Zetia which was discontinued as there was some thought his symptoms were more muscular related rather than neurovascular. He was to follow-up with Dr. Morales--vascular surgeon. He then saw Dr. Morales, vascular surgeon indicated his symptoms at that time were likely due to left internal carotid artery stenosis and was to be managed medically which included changing from aspirin to Plavix and have him evaluated by neurology--in which he is scheduled in April. His advice of the time was his age and lack of symptoms at that time there was no carotid intervention that was recommended. - Related Data Allergies/Adverse Reactions: Allergies Allergy/AdvReac Type Severity Reaction Status Date / Time No Known Allergies Allergy Verified 01/08/16 05:59 Home Medications: Home Meds Atenolol [Tenormin] 25 mg PO 1800 11/14/13 [History] Insulin Glargine,Hum.Rec.Anlog [Lantus Solostar] 24 units SQ DAILY 11/14/13 [ History] Sertraline [Zoloft] 50 mg PO BEDTIME 11/14/13 [History] Simvastatin [Zocor] 20 mg PO BEDTIME 11/14/13 [History] Lisinopril 10 mg PO 1800 01/11/16 [History] Aspirin [Ecotrin] 81 mg PO 1800 03/01/17 [History] Clopidogrel [Plavix] 75 mg PO 1800 03/01/17 [History] Lutein/Minerals/Vit A,C & E [Ocuvite] 1 tab PO BID 03/02/17 [History] Past Medical History HEENT History: Reports: Cataract, Impaired Vision Cardiovascular History: Reports: Bypass, CAD, Hypertension Gastrointestinal History: Reports: Chronic Constipation Musculoskeletal History: Reports: Osteoarthritis Psychiatric History: Reports: Depression Endocrine/Metabolic History: Reports: Diabetes, Type II - Past Surgical History HEENT Surgical History: Reports: Cataract Surgery, Tonsillectomy Cardiovascular Surgical History: Reports: Coronary Artery Bypass, Valve Replacement, Other (See Below) Social & Family History - Tobacco Use Smoking Status *Q: Former Smoker Years of Tobacco use: 40 Used Tobacco, but Quit: Yes Month Tobacco Last Used: 1978 Second Hand Smoke Exposure: No - Alcohol Use Days Per Week of Alcohol Use: 0 - Recreational Drug Use Recreational Drug Use: No - Living Situation & Occupation Living situation: Reports: Occupation: Disabled H&P Review of Systems - Review of Systems: Review Of Systems: See Below General: Reports: Weakness (Left-sided leg weakness and left-sided upper extremity weakness) HEENT: Reports: No Symptoms Pulmonary: Reports: No Symptoms Cardiovascular: Reports: No Symptoms Gastrointestinal: Reports: No Symptoms Genitourinary: Reports: No Symptoms Musculoskeletal: Reports: Other (Left wrist pain,). Denies: Joint Swelling Skin: Reports: Wound (Left elbow avulsion skin tear), Other (Skin tear left elbow) Psychiatric: Reports: No Symptoms Neurological: Reports: Pre-Existing Deficit, Trouble Speaking (Difficulty with S sounds, some dysarthria), Difficulty Walking, Weakness, Change in Speech, Gait Disturbance. Denies: Confusion, Dizziness, Headache, Numbness, Paresthesia Hematologic/Lymphatic: Reports: No Symptoms Immunologic: Reports: No Symptoms Exam - Exam Exam: See Below - Vital Signs Weight: 200 lb - Exam Quality Assessment: No: Supplemental Oxygen General: Alert, Oriented, Cooperative. No: Mild Distress HEENT: PERRLA, Hearing Intact, Mucosa Moist & Yetter, Nares Patent, Normal Nasal Septum, Posterior Pharynx Clear, Conjunctiva Clear, EOMI, EACs Clear, TMs Clear Neck: Supple, Trachea Midline, 2 Lungs: Clear to Auscultation, Normal Respiratory Effort Cardiovascular: Regular Rate, Regular Rhythm Abdomen: Normal Bowel Sounds, Soft Rectal (Males) Exam: Deferred Back Exam: No: CVA Tenderness (L), CVA Tenderness (R) Extremities: Other (Left wrist tenderness, no deformity) Peripheral Pulses: 1+: Radial (L), 2+: Radial (R) Skin: Wound (Healing skin avulsion/tear left elbow) Neurological: Normal Tone, Sensation Intact, Abnormal Gait. No: Strength Equal Bilateral (LLU, 3/5 weakness. ), Normal Speech, Reflexes Unequal Neuro Extensive - Mental Status: Alert, Oriented x3, Normal Mood/Affect, Normal Cognition Psychiatric: Alert, Normal Affect, Normal Mood *Q Meaningful Use (ADM) - VTE *Q VTE Criteria *Q: - Stroke *Q Stroke Criteria *Q: - AMI *Q AMI Criteria *Q: Problem List Initiated/Reviewed/Updated: Yes Orders Last 24hrs: Active Orders 24 hr Category Date Time Status Admission Status [Patient Status] [ADT] Routine ADT 03/05/17 10:08 Ordered Blood Glucose Check, Bedside [RC] DAILY Care 03/05/17 10:06 Ordered Up With Assistance [RC] ASDIRECTED Care 03/05/17 10:06 Ordered Vital Signs [RC] Q8HR Care 03/05/17 10:06 Ordered Consult to Physical Therapy [PT Evaluation and Cons 03/05/17 10:06 Ordered Treatment] [CONS] Routine Consult to Speech Language Pathology [SYSTEMS DEVELOPMENT MANAGER Evaluation Cons 03/05/17 10:06 Ordered and Treatment] [CONS] Routine Regular Diet [DIET] Diet 03/05/17 Dinner Ordered Acetaminophen [Tylenol] Med 03/05/17 10:06 Ordered 650 mg PO Q4H PRN Aspirin [Halfprin] Med 03/05/17 18:00 Ordered 81 mg PO 1800 Atenolol [Tenormin] Med 03/05/17 18:00 Ordered 25 mg PO 1800 Clopidogrel [Plavix] Med 03/05/17 18:00 Ordered 75 mg PO 1800 Insulin Detemir [Levemir] Med 03/06/17 09:00 Ordered 24 unit SUBCUT DAILY Lisinopril [Prinivil] Med 03/05/17 18:00 Ordered 10 mg PO 1800 Sertraline [Zoloft] Med 03/05/17 21:00 Ordered 50 mg PO BEDTIME Simvastatin [Zocor] Med 03/05/17 21:00 Ordered 20 mg PO BEDTIME Sodium Chloride 0.9% [Syrex Flush] Med 03/05/17 10:06 Ordered 5 ml FLUSH Q8H PRN Saline Lock Insert [OM.PC] Routine Oth 03/05/17 10:06 Ordered Resuscitation Status Routine Resus Stat 03/05/17 10:08 Ordered Medication Orders Acetaminophen (Tylenol) 650 mg PO Q4H PRN PRN Reason: Pain Aspirin (Halfprin) 81 mg PO 1800 MELY Atenolol (Tenormin) 25 mg PO 1800 MELY Clopidogrel Bisulfate (Plavix) 75 mg PO 1800 MELY Insulin Detemir (Levemir) 24 unit SUBCUT DAILY MELY Lisinopril (Prinivil) 10 mg PO 1800 MELY Sertraline HCl (Zoloft) 50 mg PO BEDTIME MELY Simvastatin (Zocor) 20 mg PO BEDTIME MELY Sodium Chloride (Syrex Flush) 5 ml FLUSH Q8H PRN PRN Reason: Keep Vein Open Assessment/Plan Comment:: HISTORY OF PRESENT ILLNESS 87-year-old gentleman was initially admitted due to having some weakness in his left leg with mild elevation in his white blood cell count at [facility]. 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 He also admitted to falling 3 days prior to admission while he was gardening however he denied hitting his head. He did sustain a left elbow avulsion and a contusion to his left wrist. When he fell he denied hitting his head or losing any consciousness September 2016 the patient presented via ground ambulance [facility] for questionable TIA symptoms in which he had right hand weakness, left eyelid drooping and left facial drooping. At that time the patient stated that he woke up out of his sleep with the symptoms however he had went to bed that evening without any symptoms. head CT at that time was negative and a carotid artery Doppler ultrasound which showed 70% stenosis of the right carotid artery or greater. He spent a couple days in the hospital he seemed to improve with his right hand back to normal at that time he had no speech changes no headaches or weakness or numbness or visual changes and he was discharged with the pending MRI scheduled. A few days after discharge patient did have his simvastatin decreased along with his Zetia which was discontinued as there was some thought his symptoms were more muscular related rather than neurovascular. He was to follow-up with Dr. Morales--vascular surgeon. He then saw Dr. Morales, vascular surgeon indicated his symptoms at that time were likely due to left internal carotid artery stenosis and was to be managed medically which included changing from aspirin to Plavix and have him evaluated by neurology--in which he is scheduled in April. His advice of the time was his age and lack of symptoms at that time there was no carotid intervention that was recommended. DIAGNOSTICS Head CT without contrast dated March 01, 2017; focal areas of decreased density right side superior aspect of right thalamus extending into posterior right frontal white matter--consistent with an infarct however appears old however new since comparable studies September 2016. CT brain dated September 2016, mild central and cortical cerebral atrophy and diffuse nonspecific degenerative white matter disease however no current evidence of intracranial mass hemorrhage or acute infarct MRI, brain without contrast, dated September 2016, (due to right hand weakness), Diffuse microvascular disease Communicating hydrocephalus, as noted with subependymal fluid resorption No MRI evidence of acute infarct Carotid artery ultrasound, dated October 2016, right internal carotid artery greater then 70% stenosis, left internal carotid artery less than 50% stenosis, right vertebral artery antegrade CODE STATUS, DO NOT RESUSCITATE IMPRESSION/PLAN CVA; with ongoing left-sided residual, he will receive physical therapy here for rehabilitation 4-6 weeks. Noticeable progress. Continue with aspirin and Plavix, neurology appointment April. Bilateral carotid artery stenosis, medically managed Chronic kidney disease, stage 3, creatinine clearance approximately 25 History of possible TIA Diabetes mellitus, stable, Hypertension, stable, continue with TRAVIS inhibitor and atenolol Depression, stable, continue with Zoloft Hyperlipidemia, stable, likely will not benefit from increase in statin therapy. Aortic stenosis, asymptomatic
[2017-03-05] MEDS: Aspirin 81 MG Tab.EC PO SCH (18:20)
[2017-03-05] MEDS: Clopidogrel 75 MG Tab PO SCH (18:20)
[2017-03-05] MEDS: Lisinopril 10 MG Tab PO SCH (18:21)
[2017-03-05] MEDS: Atenolol 25 MG Tab PO SCH (18:21)
[2017-03-05] MEDS: Simvastatin 20 MG Tab PO SCH (21:34)
[2017-03-05] MEDS: Sertraline 50 MG Tab PO SCH (21:34)
[2017-03-06] MEDS: Insulin Detemir 100 Units/ML 3 ML Pen SUBCUT SCH (08:45)
[2017-03-06] MEDS: Lutein/Minerals/Vitamins A, C & E Tab PO SCH ×2 (08:58→20:48)
[2017-03-06] MEDS: Aspirin 81 MG Tab.EC PO SCH (18:01)
[2017-03-06] MEDS: Clopidogrel 75 MG Tab PO SCH (18:04)
[2017-03-06] MEDS: Atenolol 25 MG Tab PO SCH (18:04)
[2017-03-06] MEDS: Lisinopril 10 MG Tab PO SCH (18:05)
[2017-03-06] MEDS: Sertraline 50 MG Tab PO SCH (20:48)
[2017-03-06] MEDS: Simvastatin 20 MG Tab PO SCH (20:48)
[2017-03-07] MEDS: Insulin Detemir 100 Units/ML 3 ML Pen SUBCUT SCH (08:16)
[2017-03-07] MEDS: Lutein/Minerals/Vitamins A, C & E Tab PO SCH ×2 (08:16→22:09)
[2017-03-07] MEDS: Clopidogrel 75 MG Tab PO SCH (18:08)
[2017-03-07] MEDS: Aspirin 81 MG Tab.EC PO SCH (18:08)
[2017-03-07] MEDS: Atenolol 25 MG Tab PO SCH (18:09)
[2017-03-07] MEDS: Lisinopril 10 MG Tab PO SCH (18:09)
[2017-03-07] MEDS: Sertraline 50 MG Tab PO SCH (20:34)
[2017-03-07] MEDS: Simvastatin 20 MG Tab PO SCH (20:34)
[2017-03-08] MEDS: Insulin Detemir 100 Units/ML 3 ML Pen SUBCUT SCH (08:42)
[2017-03-08] MEDS: Lutein/Minerals/Vitamins A, C & E Tab PO SCH ×2 (08:42→20:58)
--- NOTE | 2017-03-08 09:24 | PCM.PN ---
- General Info Date of Service: 03/08/17 Functional Status: Reports: pain controlled, tolerating diet, ambulating. Denies: new symptoms - Review of Systems General: Reports: Weakness (Although still left-sided upper and lower extremity weakness this has improved) HEENT: Reports: dysphasia Pulmonary: Reports: no symptoms Cardiovascular: Reports: No Symptoms Gastrointestinal: Reports: No symptoms Genitourinary: Reports: no symptoms Musculoskeletal: Reports: no symptoms Skin: Reports: other (Healing skin tear/avulsion left elbow) Neurological: Reports: Pre-Existing Deficit, Difficulty Walking, Gait Disturbance. Denies: Confusion, Dizziness, Headache, Numbness, Tremors Psychiatric: Reports: no symptoms - Patient Data Vitals - most recent: Last Vital Signs Temp 98.0 F 03/08/17 06:15 Pulse 71 03/08/17 06:15 Resp 20 03/08/17 06:15 BP 127/57 L 03/08/17 06:15 Pulse Ox 97 03/08/17 06:15 Weight - most recent: 200 lb I&O - last 24 hours: Intake & Output 03/07/17 03/08/17 03/08/17 22:59 06:59 14:59 Intake Total 555 50 Output Total 550 900 Balance 5 -850 Med Orders - Current: Current Medications Acetaminophen (Tylenol) 650 mg PO Q4H PRN PRN Reason: Pain Aspirin (Halfprin) 81 mg PO 1800 [facility] Last Admin: 03/07/17 18:08 Dose: 81 mg Atenolol (Tenormin) 25 mg PO 1800 [facility] Last Admin: 03/07/17 18:09 Dose: 25 mg Clopidogrel Bisulfate (Plavix) 75 mg PO 1800 [facility] Last Admin: 03/07/17 18:08 Dose: 75 mg Insulin Detemir (Levemir) 24 unit SUBCUT DAILY [facility] Last Admin: 03/08/17 08:42 Dose: 24 units Lisinopril (Prinivil) 10 mg PO 1800 [facility] Last Admin: 03/07/17 18:09 Dose: 10 mg Multivitamins/Minerals (Ocuvite) 1 each PO BID [facility] Last Admin: 03/08/17 08:42 Dose: 1 each Sertraline HCl (Zoloft) 50 mg PO BEDTIME [facility] Last Admin: 03/07/17 20:34 Dose: 50 mg Simvastatin (Zocor) 20 mg PO BEDTIME [facility] Last Admin: 03/07/17 20:34 Dose: 20 mg - Exam Quality Assessment: No: supplemental oxygen General: alert, oriented Neck: no JVD, carotid bruit (Left-sided carotid bruit) Lungs: Clear to auscultation, Normal respiratory effort Cardiovascular: Regular Rate, Regular Rhythm, Murmurs. No: Irregular Rhythm, Bradycardia, Tachycardia Abdomen: bowel sounds present, soft, no tenderness, no distension Back Exam: No: CVA Tenderness (R) Extremities: no edema Peripheral Pulses: 2+: Radial (L), Radial (R) Wound/Incisions: healing well (Left elbow avulsion healing well), no drainage Neurological: normal tone, sensation intact. No: normal gait, normal speech ( Slight dysphonia dysarthria--especially with S sounds), strength equal bilateral (Upper and lower extremities right 5/5, left upper and lower extremities 2/5) Psy/Mental Status: alert, normal affect, normal mood - Problem List Review Problem List Initiated/Reviewed/Updated: Yes - Plan Plan:: HISTORY OF PRESENT ILLNESS 87-year-old gentleman was initially admitted due to having some weakness in his left leg with mild elevation in his white blood cell count at [facility]. 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 He also admitted to falling 3 days prior to admission while he was gardening however he denied hitting his head. He did sustain a left elbow avulsion and a contusion to his left wrist. When he fell he denied hitting his head or losing any consciousness September 2016 the patient presented via ground ambulance [facility] for questionable TIA symptoms in which he had right hand weakness, left eyelid drooping and left facial drooping. At that time the patient stated that he woke up out of his sleep with the symptoms however he had went to bed that evening without any symptoms. head CT at that time was negative and a carotid artery Doppler ultrasound which showed 70% stenosis of the right carotid artery or greater. He spent a couple days in the hospital he seemed to improve with his right hand back to normal at that time he had no speech changes no headaches or weakness or numbness or visual changes and he was discharged with the pending MRI scheduled. A few days after discharge patient did have his simvastatin decreased along with his Zetia which was discontinued as there was some thought his symptoms were more muscular related rather than neurovascular. He was to follow-up with Dr. Morales--vascular surgeon. He then saw Dr. Morales, vascular surgeon indicated his symptoms at that time were likely due to left internal carotid artery stenosis and was to be managed medically which included changing from aspirin to Plavix and have him evaluated by neurology--in which he is scheduled in April. His advice of the time was his age and lack of symptoms at that time there was no carotid intervention that was recommended. DIAGNOSTICS Head CT without contrast dated March 01, 2017; focal areas of decreased density right side superior aspect of right thalamus extending into posterior right frontal white matter--consistent with an infarct however appears old however new since comparable studies September 2016. CT brain dated September 2016, mild central and cortical cerebral atrophy and diffuse nonspecific degenerative white matter disease however no current evidence of intracranial mass hemorrhage or acute infarct MRI, brain without contrast, dated September 2016, (due to right hand weakness), Diffuse microvascular disease Communicating hydrocephalus, as noted with subependymal fluid resorption No MRI evidence of acute infarct Carotid artery ultrasound, dated October 2016, right internal carotid artery greater then 70% stenosis, left internal carotid artery less than 50% stenosis, right vertebral artery antegrade CODE STATUS, DO NOT RESUSCITATE IMPRESSION/PLAN CVA; with ongoing left-sided residual, he will receive physical therapy here for rehabilitation 4-6 weeks. Noticeable progress. Continue with aspirin and Plavix, neurology appointment April. Bilateral carotid artery stenosis, medically managed Chronic kidney disease, stage 3, creatinine clearance approximately 25 High risk for falls, goal Tinetti score 22/28, PT goals include improving left UE/LE gross strength to 4/5 in order to improve independence with ADLs and return to home environment in approximately 4-6 weeks. History of possible TIA Diabetes mellitus, stable, Hypertension, stable, continue with TRAVIS inhibitor and atenolol, with his CKD, reduce his TRAVIS inhibitor to 5 mg Depression, stable, continue with Zoloft Hyperlipidemia, stable, likely will not benefit from increase in statin therapy. Aortic stenosis, asymptomatic
[2017-03-08] MEDS: Lisinopril 5 MG Tab PO SCH (18:13)
[2017-03-08] MEDS: Aspirin 81 MG Tab.EC PO SCH (18:14)
[2017-03-08] MEDS: Clopidogrel 75 MG Tab PO SCH (18:14)
[2017-03-08] MEDS: Atenolol 25 MG Tab PO SCH (18:14)
[2017-03-08] MEDS: Simvastatin 20 MG Tab PO SCH (20:58)
[2017-03-08] MEDS: Sertraline 50 MG Tab PO SCH (20:58)
[2017-03-09] MEDS: Insulin Detemir 100 Units/ML 3 ML Pen SUBCUT SCH (08:47)
[2017-03-09] MEDS: Lutein/Minerals/Vitamins A, C & E Tab PO SCH ×2 (08:47→20:50)
[2017-03-09] MEDS: Aspirin 81 MG Tab.EC PO SCH (17:08)
[2017-03-09] MEDS: Clopidogrel 75 MG Tab PO SCH (17:08)
[2017-03-09] MEDS: Lisinopril 5 MG Tab PO SCH (17:09)
[2017-03-09] MEDS: Atenolol 25 MG Tab PO SCH (17:09)
[2017-03-09] MEDS: Simvastatin 20 MG Tab PO SCH (20:51)
[2017-03-09] MEDS: Sertraline 50 MG Tab PO SCH (20:51)
[2017-03-10] MEDS: Lutein/Minerals/Vitamins A, C & E Tab PO SCH ×2 (08:27→20:34)
[2017-03-10] MEDS: Insulin Detemir 100 Units/ML 3 ML Pen SUBCUT SCH (08:27)
[2017-03-10] MEDS: Clopidogrel 75 MG Tab PO SCH (17:09)
[2017-03-10] MEDS: Aspirin 81 MG Tab.EC PO SCH (17:09)
[2017-03-10] MEDS: Lisinopril 5 MG Tab PO SCH (17:10)
[2017-03-10] MEDS: Atenolol 25 MG Tab PO SCH (17:10)
[2017-03-10] MEDS: Simvastatin 20 MG Tab PO SCH (20:34)
[2017-03-10] MEDS: Sertraline 50 MG Tab PO SCH (20:35)
[2017-03-11] MEDS: Insulin Detemir 100 Units/ML 3 ML Pen SUBCUT SCH (08:33)
[2017-03-11] MEDS: Lutein/Minerals/Vitamins A, C & E Tab PO SCH ×2 (08:33→20:37)
[2017-03-11] MEDS: Aspirin 81 MG Tab.EC PO SCH (18:24)
[2017-03-11] MEDS: Lisinopril 5 MG Tab PO SCH (18:25)
[2017-03-11] MEDS: Clopidogrel 75 MG Tab PO SCH (18:25)
[2017-03-11] MEDS: Atenolol 25 MG Tab PO SCH (18:26)
[2017-03-11] MEDS: Simvastatin 20 MG Tab PO SCH (20:37)
[2017-03-11] MEDS: Sertraline 50 MG Tab PO SCH (20:37)
[2017-03-12] MEDS: Lutein/Minerals/Vitamins A, C & E Tab PO SCH ×2 (08:27→21:21)
[2017-03-12] MEDS: Insulin Detemir 100 Units/ML 3 ML Pen SUBCUT SCH (08:27)
[2017-03-12] MEDS: Lisinopril 5 MG Tab PO SCH (18:05)
[2017-03-12] MEDS: Aspirin 81 MG Tab.EC PO SCH (18:05)
[2017-03-12] MEDS: Clopidogrel 75 MG Tab PO SCH (18:05)
[2017-03-12] MEDS: Atenolol 25 MG Tab PO SCH (18:11)
[2017-03-12] MEDS: Sertraline 50 MG Tab PO SCH (21:21)
[2017-03-12] MEDS: Simvastatin 20 MG Tab PO SCH (21:21)
[2017-03-13] MEDS: Insulin Detemir 100 Units/ML 3 ML Pen SUBCUT SCH (08:59)
[2017-03-13] MEDS: Lutein/Minerals/Vitamins A, C & E Tab PO SCH ×2 (09:00→22:16)
[2017-03-13] MEDS: Clopidogrel 75 MG Tab PO SCH (19:56)
[2017-03-13] MEDS: Aspirin 81 MG Tab.EC PO SCH (19:56)
[2017-03-13] MEDS: Lisinopril 5 MG Tab PO SCH (19:56)
[2017-03-13] MEDS: Atenolol 25 MG Tab PO SCH (19:57)
[2017-03-13] MEDS: Simvastatin 20 MG Tab PO SCH (22:16)
[2017-03-13] MEDS: Sertraline 50 MG Tab PO SCH (22:16)
[2017-03-14] MEDS: Lutein/Minerals/Vitamins A, C & E Tab PO SCH ×2 (09:19→21:13)
[2017-03-14] MEDS: Insulin Detemir 100 Units/ML 3 ML Pen SUBCUT SCH (09:20)
[2017-03-14] MEDS: Aspirin 81 MG Tab.EC PO SCH (17:11)
[2017-03-14] MEDS: Clopidogrel 75 MG Tab PO SCH (17:12)
[2017-03-14] MEDS: Atenolol 25 MG Tab PO SCH (17:13)
[2017-03-14] MEDS: Lisinopril 5 MG Tab PO SCH (17:13)
[2017-03-14] MEDS: Sertraline 50 MG Tab PO SCH (21:13)
[2017-03-14] MEDS: Simvastatin 20 MG Tab PO SCH (21:13)
[2017-03-15] MEDS: Lutein/Minerals/Vitamins A, C & E Tab PO SCH ×2 (08:28→20:19)
[2017-03-15] MEDS: Insulin Detemir 100 Units/ML 3 ML Pen SUBCUT SCH (09:55)
[2017-03-15] MEDS: Atenolol 25 MG Tab PO SCH (17:37)
[2017-03-15] MEDS: Aspirin 81 MG Tab.EC PO SCH (17:37)
[2017-03-15] MEDS: Clopidogrel 75 MG Tab PO SCH (17:37)
[2017-03-15] MEDS: Lisinopril 5 MG Tab PO SCH (17:38)
[2017-03-15] MEDS: Sertraline 50 MG Tab PO SCH (20:19)
[2017-03-15] MEDS: Simvastatin 20 MG Tab PO SCH (20:19)
[2017-03-16] MEDS: Lutein/Minerals/Vitamins A, C & E Tab PO SCH ×2 (08:22→21:07)
[2017-03-16] MEDS: Insulin Detemir 100 Units/ML 3 ML Pen SUBCUT SCH ×2 (08:22→09:32)
[2017-03-16] MEDS: Lisinopril 5 MG Tab PO SCH (17:16)
[2017-03-16] MEDS: Atenolol 25 MG Tab PO SCH (17:17)
[2017-03-16] MEDS: Clopidogrel 75 MG Tab PO SCH (17:18)
[2017-03-16] MEDS: Aspirin 81 MG Tab.EC PO SCH (17:18)
[2017-03-16] MEDS: Simvastatin 20 MG Tab PO SCH (21:07)
[2017-03-16] MEDS: Sertraline 50 MG Tab PO SCH (21:07)
[2017-03-17] MEDS: Lutein/Minerals/Vitamins A, C & E Tab PO SCH ×2 (08:13→21:01)
[2017-03-17] MEDS: Insulin Detemir 100 Units/ML 3 ML Pen SUBCUT SCH (08:14)
[2017-03-17] MEDS: Clopidogrel 75 MG Tab PO SCH (18:13)
[2017-03-17] MEDS: Aspirin 81 MG Tab.EC PO SCH (18:13)
[2017-03-17] MEDS: Lisinopril 5 MG Tab PO SCH (18:14)
[2017-03-17] MEDS: Atenolol 25 MG Tab PO SCH (18:14)
[2017-03-17] MEDS: Simvastatin 20 MG Tab PO SCH (21:00)
[2017-03-17] MEDS: Sertraline 50 MG Tab PO SCH (21:01)
[2017-03-18] MEDS ORDERED: Pantoprazole 40 MG Tab.CR PO SCH (07:00)
[2017-03-18] MEDS: Insulin Detemir 100 Units/ML 3 ML Pen SUBCUT SCH (08:47)
[2017-03-18] MEDS: Lutein/Minerals/Vitamins A, C & E Tab PO SCH ×2 (08:49→20:31)
--- NOTE | 2017-03-18 09:04 | PCM.PN ---
- General Info Date of Service: 03/18/17 Functional Status: Reports: Pain Controlled, New Symptoms (Denies nausea but has decreased appetite), Other (Loss of appetite past week). Denies: Tolerating Diet - Review of Systems General: Denies: Fever, Weakness, Fatigue, Appetite (Decreased appetite) Pulmonary: Reports: No Symptoms Cardiovascular: Reports: No Symptoms Gastrointestinal: Reports: Decreased Appetite. Denies: Abdominal Pain, Melena, Nausea Genitourinary: Reports: No Symptoms Musculoskeletal: Reports: No Symptoms Skin: Reports: No Symptoms Neurological: Reports: Pre-Existing Deficit. Denies: Confusion, Dizziness, Numbness Psychiatric: Reports: No Symptoms. Denies: Depression (Depression appear stable ) - Patient Data Vitals - Most Recent: Last Vital Signs Temp 98.0 F 03/18/17 06:40 Pulse 54 L 03/18/17 06:40 Resp 18 03/18/17 06:40 BP 148/59 H 03/18/17 06:40 Pulse Ox 96 03/18/17 06:40 Weight - Most Recent: 176 lb 8 oz I&O - Last 24 Hours: Intake & Output 03/17/17 03/18/17 03/18/17 22:59 06:59 14:59 Intake Total 150 120 Output Total 0 Balance 150 120 Lab Results Last 24 Hours: Laboratory Results - last 24 hr 03/18/17 Range/Units 06:29 POC Glucose 116 H (74-106) mg/dl Med Orders - Current: Current Medications Acetaminophen (Tylenol) 650 mg PO Q4H PRN PRN Reason: Pain Aspirin (Halfprin) 81 mg PO 1800 [facility] Last Admin: 03/17/17 18:13 Dose: 81 mg Atenolol (Tenormin) 25 mg PO 1800 [facility] Last Admin: 03/17/17 18:14 Dose: 25 mg Clopidogrel Bisulfate (Plavix) 75 mg PO 1800 [facility] Last Admin: 03/17/17 18:13 Dose: 75 mg Insulin Detemir (Levemir) 20 unit SUBCUT DAILY [facility] Last Admin: 03/18/17 08:47 Dose: 20 units Lisinopril (Prinivil) 5 mg PO 1800 [facility] Last Admin: 03/17/17 18:14 Dose: 5 mg Multivitamins/Minerals (Ocuvite) 1 each PO BID [facility] Last Admin: 03/18/17 08:49 Dose: 1 each Sertraline HCl (Zoloft) 50 mg PO BEDTIME [facility] Last Admin: 03/17/17 21:01 Dose: 50 mg Simvastatin (Zocor) 20 mg PO BEDTIME [facility] Last Admin: 03/17/17 21:00 Dose: 20 mg Discontinued Medications Insulin Detemir (Levemir) 24 unit SUBCUT DAILY [facility] Last Admin: 03/16/17 08:22 Dose: 24 units Lisinopril (Prinivil) 10 mg PO 1800 [facility] Last Admin: 03/07/17 18:09 Dose: 10 mg - Exam Quality Assessment: No: Supplemental Oxygen General: Alert, Oriented, Cooperative, No Acute Distress Neck: Supple Lungs: Clear to Auscultation, Normal Respiratory Effort Cardiovascular: Regular Rate, Regular Rhythm Extremities: No Pedal Edema Neurological: Sensation Intact, Other (Slight speech dysarthria, seems to have improved, left-sided motor deficit however improved, improved in strength left upper extremity 4/5) - Problem List Review Problem List Initiated/Reviewed/Updated: Yes - Plan Plan:: HISTORY OF PRESENT ILLNESS 87-year-old gentleman was initially admitted due to having some weakness in his left leg with mild elevation in his white blood cell count at [facility]. 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 He also admitted to falling 3 days prior to admission while he was gardening however he denied hitting his head. He did sustain a left elbow avulsion and a contusion to his left wrist. When he fell he denied hitting his head or losing any consciousness September 2016 the patient presented via ground ambulance [facility] for questionable TIA symptoms in which he had right hand weakness, left eyelid drooping and left facial drooping. At that time the patient stated that he woke up out of his sleep with the symptoms however he had went to bed that evening without any symptoms. head CT at that time was negative and a carotid artery Doppler ultrasound which showed 70% stenosis of the right carotid artery or greater. He spent a couple days in the hospital he seemed to improve with his right hand back to normal at that time he had no speech changes no headaches or weakness or numbness or visual changes and he was discharged with the pending MRI scheduled. A few days after discharge patient did have his simvastatin decreased along with his Zetia which was discontinued as there was some thought his symptoms were more muscular related rather than neurovascular. He was to follow-up with Dr. Morales--vascular surgeon. He then saw Dr. Morales, vascular surgeon indicated his symptoms at that time were likely due to left internal carotid artery stenosis and was to be managed medically which included changing from aspirin to Plavix and have him evaluated by neurology--in which he is scheduled in April. His advice of the time was his age and lack of symptoms at that time there was no carotid intervention that was recommended. DIAGNOSTICS Head CT without contrast dated March 01, 2017; focal areas of decreased density right side superior aspect of right thalamus extending into posterior right frontal white matter--consistent with an infarct however appears old however new since comparable studies September 2016. CT brain dated September 2016, mild central and cortical cerebral atrophy and diffuse nonspecific degenerative white matter disease however no current evidence of intracranial mass hemorrhage or acute infarct MRI, brain without contrast, dated September 2016, (due to right hand weakness), Diffuse microvascular disease Communicating hydrocephalus, as noted with subependymal fluid resorption No MRI evidence of acute infarct Carotid artery ultrasound, dated October 2016, right internal carotid artery greater then 70% stenosis, left internal carotid artery less than 50% stenosis, right vertebral artery antegrade CODE STATUS, DO NOT RESUSCITATE IMPRESSION/PLAN Decrease appetite, add PPI therapy protonic due to his Plavix use. Has lost some weight, add Remeron, check stool for occult blood, hemoglobin in the a.m. CVA; with ongoing left-sided residual, has improved, LUE strength is progressing nicely in regards to strength and coordination, but left LE is still lacking coordination for independence. Is continuing with speech pathology , still has some residual dysarthria, receiving ongoing physical therapy. Continue with aspirin and Plavix, neurology appointment April. Bilateral carotid artery stenosis, medically managed Chronic kidney disease, stage 3, creatinine clearance approximately 25 High risk for falls, goal Tinetti score 22/28, PT goals include improving left UE/LE gross strength to 4/5 in order to improve independence with ADLs and return to home environment in approximately 4-6 weeks. History of possible TIA Diabetes mellitus, stable, Hypertension, stable, continue with TRAVIS inhibitor and atenolol, with his CKD, reduce his TRAVIS inhibitor to 5 mg Depression, stable, continue with Zoloft Hyperlipidemia, stable, likely will not benefit from increase in statin therapy. Aortic stenosis, asymptomatic OVERALL PHYSICAL THERAPY PLAN Patient would desire to go home sooner however PT did discuss that pt's left LE balance is poor and needs more rehabilitation prior to going home. PT suggested 4 more weeks of therapy, then progress to home health and possibly outpatient therapy services. is concerned about toilet transfers, so will look into railings along side of the toilet to assist with pushing into standing. Also discussed showering, which family would like an assessment of the bathroom in general in order to assure safety with showering and ADLs.
[2017-03-18] MEDS: Atenolol 25 MG Tab PO SCH (17:12)
[2017-03-18] MEDS: Aspirin 81 MG Tab.EC PO SCH (17:12)
[2017-03-18] MEDS: Clopidogrel 75 MG Tab PO SCH (17:19)
[2017-03-18] MEDS: Lisinopril 5 MG Tab PO SCH (17:19)
[2017-03-18] MEDS: Sertraline 50 MG Tab PO SCH (20:31)
[2017-03-18] MEDS: Simvastatin 20 MG Tab PO SCH (20:31)
[2017-03-18] MEDS: Mirtazapine 15 MG Tab PO SCH (20:33)
[2017-03-19] MEDS: Insulin Detemir 100 Units/ML 3 ML Pen SUBCUT SCH (08:09)
[2017-03-19] MEDS: Lutein/Minerals/Vitamins A, C & E Tab PO SCH ×2 (08:09→20:16)
[2017-03-19] MEDS: Pantoprazole 40 MG Tab.CR PO SCH (08:09)
[2017-03-19] MEDS: Clopidogrel 75 MG Tab PO SCH (18:16)
[2017-03-19] MEDS: Aspirin 81 MG Tab.EC PO SCH (18:16)
[2017-03-19] MEDS: Atenolol 25 MG Tab PO SCH (18:17)
[2017-03-19] MEDS: Lisinopril 5 MG Tab PO SCH (18:19)
[2017-03-19] MEDS: Sertraline 50 MG Tab PO SCH (20:16)
[2017-03-19] MEDS: Mirtazapine 15 MG Tab PO SCH (20:16)
[2017-03-19] MEDS: Simvastatin 20 MG Tab PO SCH (20:16)
[2017-03-20] MEDS: Insulin Detemir 100 Units/ML 3 ML Pen SUBCUT SCH (08:29)
[2017-03-20] MEDS: Pantoprazole 40 MG Tab.CR PO SCH (08:31)
[2017-03-20] MEDS: Lutein/Minerals/Vitamins A, C & E Tab PO SCH ×2 (08:31→20:56)
[2017-03-20] MEDS: Lisinopril 5 MG Tab PO SCH (17:21)
[2017-03-20] MEDS: Aspirin 81 MG Tab.EC PO SCH (17:21)
[2017-03-20] MEDS: Atenolol 25 MG Tab PO SCH (17:21)
[2017-03-20] MEDS: Clopidogrel 75 MG Tab PO SCH (17:21)
[2017-03-20] MEDS: Sertraline 50 MG Tab PO SCH (20:56)
[2017-03-20] MEDS: Simvastatin 20 MG Tab PO SCH (20:56)
[2017-03-20] MEDS: Mirtazapine 15 MG Tab PO SCH (20:56)
[2017-03-21] MEDS: Magnesium Hydroxide 400 MG/5 ML Susp 30 ML Cup PO PRN (03:09)
[2017-03-21] MEDS: Lutein/Minerals/Vitamins A, C & E Tab PO SCH ×2 (08:42→20:36)
[2017-03-21] MEDS: Pantoprazole 40 MG Tab.CR PO SCH (08:42)
[2017-03-21] MEDS: Insulin Detemir 100 Units/ML 3 ML Pen SUBCUT SCH (08:42)
[2017-03-21] MEDS: Clopidogrel 75 MG Tab PO SCH (17:14)
[2017-03-21] MEDS: Aspirin 81 MG Tab.EC PO SCH (17:14)
[2017-03-21] MEDS: Lisinopril 5 MG Tab PO SCH (17:14)
[2017-03-21] MEDS: Atenolol 25 MG Tab PO SCH (17:15)
[2017-03-21] MEDS: Simvastatin 20 MG Tab PO SCH (20:36)
[2017-03-21] MEDS: Mirtazapine 15 MG Tab PO SCH (20:36)
[2017-03-21] MEDS: Sertraline 50 MG Tab PO SCH (20:37)
[2017-03-21] MEDS: Acetaminophen 325 MG Tab PO PRN (22:47)
[2017-03-22] MEDS: Lutein/Minerals/Vitamins A, C & E Tab PO SCH ×2 (08:12→20:22)
[2017-03-22] MEDS: Pantoprazole 40 MG Tab.CR PO SCH (08:12)
[2017-03-22] MEDS: Acetaminophen 325 MG Tab PO PRN ×2 (08:12→23:13)
[2017-03-22] MEDS: Insulin Detemir 100 Units/ML 3 ML Pen SUBCUT SCH (08:13)
[2017-03-22] MEDS: Atenolol 25 MG Tab PO SCH (18:05)
[2017-03-22] MEDS: Aspirin 81 MG Tab.EC PO SCH (18:05)
[2017-03-22] MEDS: Clopidogrel 75 MG Tab PO SCH (18:05)
[2017-03-22] MEDS: Lisinopril 5 MG Tab PO SCH (18:05)
[2017-03-22] MEDS: Simvastatin 20 MG Tab PO SCH (20:22)
[2017-03-22] MEDS: Sertraline 50 MG Tab PO SCH (20:22)
[2017-03-22] MEDS: Mirtazapine 15 MG Tab PO SCH (20:22)
[2017-03-23] MEDS: Insulin Detemir 100 Units/ML 3 ML Pen SUBCUT SCH (08:03)
[2017-03-23] MEDS: Lutein/Minerals/Vitamins A, C & E Tab PO SCH ×2 (08:03→20:47)
[2017-03-23] MEDS: Acetaminophen 325 MG Tab PO PRN (08:03)
[2017-03-23] MEDS: Pantoprazole 40 MG Tab.CR PO SCH (08:06)
[2017-03-23] MEDS: Acetaminophen 650 MG Tab.ER PO SCH ×3 (10:44→20:47)
[2017-03-23] MEDS: Gabapentin 100 MG Cap PO SCH (10:47)
[2017-03-23] MEDS: Aspirin 81 MG Tab.EC PO SCH (17:40)
[2017-03-23] MEDS: Clopidogrel 75 MG Tab PO SCH (17:40)
[2017-03-23] MEDS: Lisinopril 5 MG Tab PO SCH (17:40)
[2017-03-23] MEDS: Atenolol 25 MG Tab PO SCH (17:40)
[2017-03-23] MEDS: Mirtazapine 15 MG Tab PO SCH (20:46)
[2017-03-23] MEDS: Simvastatin 20 MG Tab PO SCH (20:47)
[2017-03-23] MEDS: Sertraline 50 MG Tab PO SCH (20:48)
[2017-03-24] MEDS: Pantoprazole 40 MG Tab.CR PO SCH (06:11)
[2017-03-24] MEDS: Insulin Detemir 100 Units/ML 3 ML Pen SUBCUT SCH (09:41)
[2017-03-24] MEDS: Gabapentin 100 MG Cap PO SCH (09:42)
[2017-03-24] MEDS: Lutein/Minerals/Vitamins A, C & E Tab PO SCH ×2 (09:42→21:44)
[2017-03-24] MEDS: Acetaminophen 650 MG Tab.ER PO SCH ×3 (09:42→21:44)
[2017-03-24] MEDS: Aspirin 81 MG Tab.EC PO SCH (17:35)
[2017-03-24] MEDS: Clopidogrel 75 MG Tab PO SCH (17:35)
[2017-03-24] MEDS: Atenolol 25 MG Tab PO SCH (17:35)
[2017-03-24] MEDS: Lisinopril 5 MG Tab PO SCH (17:36)
[2017-03-24] MEDS: Simvastatin 20 MG Tab PO SCH (21:44)
[2017-03-24] MEDS: Mirtazapine 15 MG Tab PO SCH (21:45)
[2017-03-24] MEDS: Sertraline 50 MG Tab PO SCH (21:45)
[2017-03-25] MEDS: Pantoprazole 40 MG Tab.CR PO SCH (06:12)
[2017-03-25] MEDS: Magnesium Hydroxide 400 MG/5 ML Susp 30 ML Cup PO PRN (08:05)
[2017-03-25] MEDS: Gabapentin 100 MG Cap PO SCH (08:05)
[2017-03-25] MEDS: Lutein/Minerals/Vitamins A, C & E Tab PO SCH ×2 (08:06→20:54)
[2017-03-25] MEDS: Acetaminophen 650 MG Tab.ER PO SCH ×3 (08:06→20:58)
[2017-03-25] MEDS: Insulin Detemir 100 Units/ML 3 ML Pen SUBCUT SCH (08:07)
[2017-03-25] MEDS: Clopidogrel 75 MG Tab PO SCH (17:14)
[2017-03-25] MEDS: Aspirin 81 MG Tab.EC PO SCH (17:14)
[2017-03-25] MEDS: Lisinopril 5 MG Tab PO SCH (17:15)
[2017-03-25] MEDS: Atenolol 25 MG Tab PO SCH (17:15)
[2017-03-25] MEDS: Mirtazapine 15 MG Tab PO SCH (20:54)
[2017-03-25] MEDS: Simvastatin 20 MG Tab PO SCH (20:55)
[2017-03-25] MEDS: Sertraline 50 MG Tab PO SCH (20:55)
[2017-03-26] MEDS: Pantoprazole 40 MG Tab.CR PO SCH (06:26)
[2017-03-26] MEDS: Insulin Detemir 100 Units/ML 3 ML Pen SUBCUT SCH (08:11)
[2017-03-26] MEDS: Gabapentin 100 MG Cap PO SCH (08:13)
[2017-03-26] MEDS: Lutein/Minerals/Vitamins A, C & E Tab PO SCH ×2 (08:13→20:21)
[2017-03-26] MEDS: Acetaminophen 650 MG Tab.ER PO SCH ×3 (08:13→20:22)
--- NOTE | 2017-03-26 10:25 | PCM.PN ---
- General Info Date of Service: 03/23/17 Functional Status: Reports: Tolerating Diet, New Symptoms (Left leg pain, refuses to participate in PT due to pain in his leg). Denies: Pain Controlled, Ambulating - Review of Systems General: Denies: Fever, Weakness, Fatigue, Malaise, Chills, Night Sweats, Appetite HEENT: Reports: No Symptoms Pulmonary: Reports: No Symptoms Cardiovascular: Reports: No Symptoms Gastrointestinal: Reports: No Symptoms Genitourinary: Reports: No Symptoms Musculoskeletal: Reports: Leg Pain (Left leg pain posterior calf) Skin: Reports: No Symptoms Neurological: Denies: Difficulty Walking, Gait Disturbance Psychiatric: Reports: Depression. Denies: Confusion - Patient Data Vitals - Most Recent: Last Vital Signs Temp 98.1 F 03/26/17 04:07 Pulse 69 03/26/17 04:07 Resp 16 03/26/17 04:07 BP 149/64 H 03/26/17 04:07 Pulse Ox 96 03/26/17 04:07 Weight - Most Recent: 177 lb 3.2 oz I&O - Last 24 Hours: Intake & Output 03/25/17 03/26/17 03/26/17 22:59 06:59 14:59 Intake Total 200 200 Output Total 0 Balance 200 200 Lab Results Last 24 Hours: Laboratory Results - last 24 hr 03/26/17 Range/Units 06:25 POC Glucose 178 H (74-106) mg/dl Med Orders - Current: Current Medications Acetaminophen (Tylenol Arthritis Pain) 650 mg PO TID [facility] Last Admin: 03/26/17 08:13 Dose: 650 mg Aspirin (Halfprin) 81 mg PO 1800 [facility] Last Admin: 03/25/17 17:14 Dose: Not Given Atenolol (Tenormin) 25 mg PO 1800 [facility] Last Admin: 03/25/17 17:15 Dose: Not Given Clopidogrel Bisulfate (Plavix) 75 mg PO 1800 [facility] Last Admin: 03/25/17 17:14 Dose: Not Given Gabapentin (Neurontin) 100 mg PO DAILY [facility] Last Admin: 03/26/17 08:13 Dose: 100 mg Insulin Detemir (Levemir) 20 unit SUBCUT DAILY [facility] Last Admin: 03/26/17 08:11 Dose: 20 units Lisinopril (Prinivil) 5 mg PO 1800 [facility] Last Admin: 03/25/17 17:15 Dose: Not Given Magnesium Hydroxide (Milk Of Magnesia) 30 ml PO DAILY PRN PRN Reason: Constipation Last Admin: 03/25/17 08:05 Dose: 30 ml Mirtazapine (Remeron) 15 mg PO BEDTIME [facility] Last Admin: 03/25/17 20:54 Dose: 15 mg Multivitamins/Minerals (Ocuvite) 1 each PO BID [facility] Last Admin: 03/26/17 08:13 Dose: 1 each Pantoprazole Sodium (Protonix) 40 mg PO ACBREAKFAST [facility] Last Admin: 03/26/17 06:26 Dose: 40 mg Sertraline HCl (Zoloft) 100 mg PO BEDTIME [facility] Last Admin: 03/25/17 20:55 Dose: 100 mg Simvastatin (Zocor) 20 mg PO BEDTIME [facility] Last Admin: 03/25/17 20:55 Dose: 20 mg Discontinued Medications Acetaminophen (Tylenol) 650 mg PO Q4H PRN PRN Reason: Pain Last Admin: 03/23/17 08:03 Dose: 650 mg Insulin Detemir (Levemir) 24 unit SUBCUT DAILY [facility] Last Admin: 03/16/17 08:22 Dose: 24 units Lisinopril (Prinivil) 10 mg PO 1800 [facility] Last Admin: 03/07/17 18:09 Dose: 10 mg Pantoprazole Sodium (Protonix) 40 mg PO ACBREAKFAST [facility] Last Admin: 03/18/17 10:37 Dose: 40 mg Pantoprazole Sodium (Protonix) 40 mg PO 0900 [facility] Last Admin: 03/23/17 08:06 Dose: 40 mg Sertraline HCl (Zoloft) 50 mg PO BEDTIME [facility] Last Admin: 03/22/17 20:22 Dose: 50 mg - Exam Quality Assessment: Supplemental Oxygen General: Alert, Oriented Lungs: Clear to Auscultation, Normal Respiratory Effort Cardiovascular: Regular Rate, Regular Rhythm GI/Abdominal Exam: Normal Bowel Sounds, Soft, Non-Tender, No Organomegaly, No Distention, No Abnormal Bruit, No Mass, Pelvis Stable Extremities: No Pedal Edema, Rob's Sign, Leg Pain. No: Pedal Edema, Slow Capillary Refill, Joint Swelling, Limited Range of Motion, Increased Warmth, Mottled, Pallor, Redness Peripheral Pulses: 1+: Posterior Tibial (R), Dorsalis Pedis (L) Skin: Warm, Dry, Intact Psy/Mental Status: Alert, Normal Affect, Normal Mood - Problem List Review Problem List Initiated/Reviewed/Updated: Yes - Plan Plan:: HISTORY OF PRESENT ILLNESS 87-year-old gentleman was initially admitted due to having some weakness in his left leg with mild elevation in his white blood cell count at [facility]. 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 He also admitted to falling 3 days prior to admission while he was gardening however he denied hitting his head. He did sustain a left elbow avulsion and a contusion to his left wrist. When he fell he denied hitting his head or losing any consciousness September 2016 the patient presented via ground ambulance [facility] for questionable TIA symptoms in which he had right hand weakness, left eyelid drooping and left facial drooping. At that time the patient stated that he woke up out of his sleep with the symptoms however he had went to bed that evening without any symptoms. head CT at that time was negative and a carotid artery Doppler ultrasound which showed 70% stenosis of the right carotid artery or greater. He spent a couple days in the hospital he seemed to improve with his right hand back to normal at that time he had no speech changes no headaches or weakness or numbness or visual changes and he was discharged with the pending MRI scheduled. A few days after discharge patient did have his simvastatin decreased along with his Zetia which was discontinued as there was some thought his symptoms were more muscular related rather than neurovascular. He was to follow-up with Dr. Morales--vascular surgeon. He then saw Dr. Morales, vascular surgeon indicated his symptoms at that time were likely due to left internal carotid artery stenosis and was to be managed medically which included changing from aspirin to Plavix and have him evaluated by neurology--in which he is scheduled in April. His advice of the time was his age and lack of symptoms at that time there was no carotid intervention that was recommended. DIAGNOSTICS Head CT without contrast dated March 01, 2017; focal areas of decreased density right side superior aspect of right thalamus extending into posterior right frontal white matter--consistent with an infarct however appears old however new since comparable studies September 2016. CT brain dated September 2016, mild central and cortical cerebral atrophy and diffuse nonspecific degenerative white matter disease however no current evidence of intracranial mass hemorrhage or acute infarct MRI, brain without contrast, dated September 2016, (due to right hand weakness), Diffuse microvascular disease Communicating hydrocephalus, as noted with subependymal fluid resorption No MRI evidence of acute infarct Carotid artery ultrasound, dated October 2016, right internal carotid artery greater then 70% stenosis, left internal carotid artery less than 50% stenosis, right vertebral artery antegrade CODE STATUS, DO NOT RESUSCITATE IMPRESSION/PLAN Left leg pain, negative for DVT, add Neurontin and Tylenol arthritis Decrease appetite on admission, add PPI therapy protonic due to his Plavix use. His weight is picking up since added Remeron. CVA; with ongoing left-sided residual, has improved, LUE strength is progressing nicely in regards to strength and coordination, but left LE is still lacking coordination for independence. Is continuing with speech pathology , still has some residual dysarthria, receiving ongoing physical therapy. Continue with aspirin and Plavix, neurology appointment April. Bilateral carotid artery stenosis, medically managed Chronic kidney disease, stage 3, creatinine clearance approximately 25 High risk for falls, goal Tinetti score 22/28, PT goals include improving left UE/LE gross strength to 4/5 in order to improve independence with ADLs and return to home environment in approximately 4-6 weeks from admission History of possible TIA Diabetes mellitus, stable, Hypertension, stable, continue with TRAVIS inhibitor and atenolol, with his CKD, reduce his TRAVIS inhibitor to 5 mg Depression, stable, continue with Zoloft Hyperlipidemia, stable, likely will not benefit from increase in statin therapy. Aortic stenosis, asymptomatic OVERALL PHYSICAL THERAPY PLAN Patient would desire to go home sooner however PT did discuss that pt's left LE balance is poor and needs more rehabilitation prior to going home. PT suggested 4 more weeks of therapy, then progress to home health and possibly outpatient therapy services. is concerned about toilet transfers, so will look into railings along side of the toilet to assist with pushing into standing. Also discussed showering, which family would like an assessment of the bathroom in general in order to assure safety with showering and ADLs.
[2017-03-26] MEDS: Lisinopril 5 MG Tab PO SCH (18:17)
[2017-03-26] MEDS: Atenolol 25 MG Tab PO SCH (18:17)
[2017-03-26] MEDS: Clopidogrel 75 MG Tab PO SCH (18:17)
[2017-03-26] MEDS: Aspirin 81 MG Tab.EC PO SCH (18:18)
[2017-03-26] MEDS: Simvastatin 20 MG Tab PO SCH (20:21)
[2017-03-26] MEDS: Mirtazapine 15 MG Tab PO SCH (20:21)
[2017-03-26] MEDS: Sertraline 50 MG Tab PO SCH (20:22)
[2017-03-27] MEDS: Pantoprazole 40 MG Tab.CR PO SCH (06:13)
[2017-03-27] MEDS: Lutein/Minerals/Vitamins A, C & E Tab PO SCH ×2 (08:08→20:41)
[2017-03-27] MEDS: Gabapentin 100 MG Cap PO SCH (08:08)
[2017-03-27] MEDS: Acetaminophen 650 MG Tab.ER PO SCH ×3 (08:08→20:41)
[2017-03-27] MEDS: Insulin Detemir 100 Units/ML 3 ML Pen SUBCUT SCH (08:08)
[2017-03-27] MEDS: Clopidogrel 75 MG Tab PO SCH (19:16)
[2017-03-27] MEDS: Aspirin 81 MG Tab.EC PO SCH (19:16)
[2017-03-27] MEDS: Atenolol 25 MG Tab PO SCH (19:16)
[2017-03-27] MEDS: Lisinopril 5 MG Tab PO SCH (19:17)
[2017-03-27] MEDS: Mirtazapine 15 MG Tab PO SCH (20:41)
[2017-03-27] MEDS: Sertraline 50 MG Tab PO SCH (20:41)
[2017-03-27] MEDS: Simvastatin 20 MG Tab PO SCH (20:41)
[2017-03-28] MEDS: Pantoprazole 40 MG Tab.CR PO SCH (06:12)
[2017-03-28] MEDS: Insulin Detemir 100 Units/ML 3 ML Pen SUBCUT SCH (08:48)
[2017-03-28] MEDS: Lutein/Minerals/Vitamins A, C & E Tab PO SCH ×2 (08:49→20:19)
[2017-03-28] MEDS: Gabapentin 100 MG Cap PO SCH (08:49)
[2017-03-28] MEDS: Acetaminophen 650 MG Tab.ER PO SCH ×3 (08:49→20:19)
[2017-03-28] MEDS: Lisinopril 5 MG Tab PO SCH (17:14)
[2017-03-28] MEDS: Aspirin 81 MG Tab.EC PO SCH (17:14)
[2017-03-28] MEDS: Clopidogrel 75 MG Tab PO SCH (17:14)
[2017-03-28] MEDS: Atenolol 25 MG Tab PO SCH (17:18)
[2017-03-28] MEDS: Mirtazapine 15 MG Tab PO SCH (20:19)
[2017-03-28] MEDS: Sertraline 50 MG Tab PO SCH (20:20)
[2017-03-28] MEDS: Simvastatin 20 MG Tab PO SCH (20:20)
[2017-03-29] MEDS: Pantoprazole 40 MG Tab.CR PO SCH (06:17)
[2017-03-29] MEDS: Gabapentin 100 MG Cap PO SCH (08:14)
[2017-03-29] MEDS: Insulin Detemir 100 Units/ML 3 ML Pen SUBCUT SCH (08:14)
[2017-03-29] MEDS: Lutein/Minerals/Vitamins A, C & E Tab PO SCH ×2 (08:14→20:59)
[2017-03-29] MEDS: Acetaminophen 650 MG Tab.ER PO SCH ×3 (08:14→20:59)
[2017-03-29] MEDS: Clopidogrel 75 MG Tab PO SCH (18:15)
[2017-03-29] MEDS: Lisinopril 5 MG Tab PO SCH (18:15)
[2017-03-29] MEDS: Aspirin 81 MG Tab.EC PO SCH (18:15)
[2017-03-29] MEDS: Atenolol 25 MG Tab PO SCH (18:15)
[2017-03-29] MEDS: Mirtazapine 15 MG Tab PO SCH (20:59)
[2017-03-29] MEDS: Simvastatin 20 MG Tab PO SCH (21:00)
[2017-03-29] MEDS: Sertraline 50 MG Tab PO SCH (21:01)
[2017-03-30] MEDS: Pantoprazole 40 MG Tab.CR PO SCH (06:38)
[2017-03-30] MEDS: Insulin Detemir 100 Units/ML 3 ML Pen SUBCUT SCH (08:31)
[2017-03-30] MEDS: Gabapentin 100 MG Cap PO SCH (08:31)
[2017-03-30] MEDS: Acetaminophen 650 MG Tab.ER PO SCH ×3 (08:32→20:06)
[2017-03-30] MEDS: Lutein/Minerals/Vitamins A, C & E Tab PO SCH ×2 (08:32→20:05)
[2017-03-30] MEDS: Clopidogrel 75 MG Tab PO SCH (17:52)
[2017-03-30] MEDS: Aspirin 81 MG Tab.EC PO SCH (17:52)
[2017-03-30] MEDS: Atenolol 25 MG Tab PO SCH (17:52)
[2017-03-30] MEDS: Lisinopril 5 MG Tab PO SCH (17:53)
[2017-03-30] MEDS: Mirtazapine 15 MG Tab PO SCH (20:06)
[2017-03-30] MEDS: Sertraline 50 MG Tab PO SCH (20:06)
[2017-03-30] MEDS: Simvastatin 20 MG Tab PO SCH (20:06)
[2017-03-31] MEDS: Pantoprazole 40 MG Tab.CR PO SCH (06:23)
[2017-03-31] MEDS: Insulin Detemir 100 Units/ML 3 ML Pen SUBCUT SCH (08:28)
[2017-03-31] MEDS: Lutein/Minerals/Vitamins A, C & E Tab PO SCH ×2 (08:29→20:17)
[2017-03-31] MEDS: Gabapentin 100 MG Cap PO SCH (08:29)
[2017-03-31] MEDS: Acetaminophen 650 MG Tab.ER PO SCH (08:29)
[2017-03-31] MEDS ORDERED: Acetaminophen 650 MG Tab.ER PO PRN (09:35)
[2017-03-31] MEDS: Aspirin 81 MG Tab.EC PO SCH (18:01)
[2017-03-31] MEDS: Clopidogrel 75 MG Tab PO SCH (18:04)
[2017-03-31] MEDS: Atenolol 25 MG Tab PO SCH (18:12)
[2017-03-31] MEDS: Lisinopril 5 MG Tab PO SCH (18:12)
[2017-03-31] MEDS: Mirtazapine 15 MG Tab PO SCH (20:17)
[2017-03-31] MEDS: Sertraline 50 MG Tab PO SCH (20:17)
[2017-03-31] MEDS: Simvastatin 20 MG Tab PO SCH (20:17)
[2017-04-01] MEDS: Pantoprazole 40 MG Tab.CR PO SCH (06:03)
[2017-04-01] MEDS: Gabapentin 100 MG Cap PO SCH (08:26)
[2017-04-01] MEDS: Lutein/Minerals/Vitamins A, C & E Tab PO SCH ×2 (08:26→20:01)
[2017-04-01] MEDS: Insulin Detemir 100 Units/ML 3 ML Pen SUBCUT SCH (08:27)
[2017-04-01] MEDS: Atenolol 25 MG Tab PO SCH (17:42)
[2017-04-01] MEDS: Clopidogrel 75 MG Tab PO SCH (17:42)
[2017-04-01] MEDS: Aspirin 81 MG Tab.EC PO SCH (17:43)
[2017-04-01] MEDS: Lisinopril 5 MG Tab PO SCH (17:43)
[2017-04-01] MEDS: Sertraline 50 MG Tab PO SCH (20:01)
[2017-04-01] MEDS: Mirtazapine 15 MG Tab PO SCH (20:01)
[2017-04-01] MEDS: Simvastatin 20 MG Tab PO SCH (20:01)
[2017-04-02] MEDS: Pantoprazole 40 MG Tab.CR PO SCH (06:21)
[2017-04-02] MEDS: Gabapentin 100 MG Cap PO SCH (10:05)
[2017-04-02] MEDS: Lutein/Minerals/Vitamins A, C & E Tab PO SCH ×2 (10:06→20:16)
[2017-04-02] MEDS: Insulin Detemir 100 Units/ML 3 ML Pen SUBCUT SCH (10:06)
[2017-04-02] MEDS: Aspirin 81 MG Tab.EC PO SCH (17:47)
[2017-04-02] MEDS: Atenolol 25 MG Tab PO SCH (17:47)
[2017-04-02] MEDS: Lisinopril 5 MG Tab PO SCH (17:49)
[2017-04-02] MEDS: Clopidogrel 75 MG Tab PO SCH (17:49)
[2017-04-02] MEDS: Simvastatin 20 MG Tab PO SCH (20:16)
[2017-04-02] MEDS: Sertraline 50 MG Tab PO SCH (20:16)
[2017-04-02] MEDS: Mirtazapine 15 MG Tab PO SCH (20:16)
[2017-04-03] MEDS ORDERED: Ketorolac 30 MG/ML SDV IM ONE (02:21)
[2017-04-03] MEDS ORDERED: oxyCODONE 5 MG Tab PO ONE (02:22)
[2017-04-03] MEDS: Morphine 2 MG/ML Syringe IVPUSH PRN ×5 (05:11→14:40)
[2017-04-03 06:52] VITALS: BP 144/56
[2017-04-03] MEDS ORDERED: Pantoprazole 40 MG Tab.CR PO SCH (09:00)
--- NOTE | 2017-04-03 10:03 | PCM.PN ---
- General Info Date of Service: 04/03/17 Subjective Update: Was notified approximately 2 AM this morning the patient fell out of bed landing on left hip severe pain. Patient stated he needed to use the restroom and he slipped out of bed nurses found him on left hip. Ketorolac injection was given along with range orders morphine after one dose oxycodone 5 mg did not seem to control his pain. X-rays left hip ordered, no obvious surgical neck or hip fracture however may need to get another view. She did not hit his head no other injuries noted. Functional Status: Denies: Pain Controlled, Tolerating Diet (Made nothing by mouth pending hip x-rays interpretation) - Review of Systems General: Reports: Weakness. Denies: Fever HEENT: Reports: No Symptoms Pulmonary: Reports: No Symptoms Cardiovascular: Reports: No Symptoms Gastrointestinal: Denies: Abdominal Pain, Decreased Appetite Genitourinary: Reports: No Symptoms Musculoskeletal: Reports: Joint Pain, Other (Severe left hip pain). Denies: Back Pain, Leg Pain, Foot Pain Skin: Reports: No Symptoms Neurological: Reports: Difficulty Walking, Weakness. Denies: Confusion, Numbness, Tingling - Patient Data Vitals - Most Recent: Last Vital Signs Temp 97.4 F 04/03/17 06:51 Pulse 54 L 04/03/17 06:51 Resp 20 04/03/17 06:51 BP 144/56 H 04/03/17 06:51 Pulse Ox 95 04/03/17 06:51 Weight - Most Recent: 176 lb 5 oz I&O - Last 24 Hours: Intake & Output 04/02/17 04/03/17 04/03/17 22:59 06:59 14:59 Intake Total 520 0 Output Total 350 Balance 520 -350 Lab Results Last 24 Hours: Laboratory Results - last 24 hr 04/03/17 Range/Units 06:41 POC Glucose 147 H (74-106) mg/dl Med Orders - Current: Current Medications Acetaminophen (Tylenol Arthritis Pain) 650 mg PO Q8H PRN PRN Reason: Pain Last Admin: 04/03/17 01:09 Dose: 650 mg Aspirin (Halfprin) 81 mg PO 1800 [facility] Last Admin: 04/02/17 17:47 Dose: 81 mg Atenolol (Tenormin) 25 mg PO 1800 [facility] Last Admin: 04/02/17 17:47 Dose: 25 mg Clopidogrel Bisulfate (Plavix) 75 mg PO 1800 [facility] Last Admin: 04/02/17 17:49 Dose: 75 mg Gabapentin (Neurontin) 100 mg PO DAILY [facility] Last Admin: 04/02/17 10:05 Dose: 100 mg Insulin Detemir (Levemir) 20 unit SUBCUT DAILY [facility] Last Admin: 04/02/17 10:06 Dose: 20 units Lisinopril (Prinivil) 5 mg PO 1800 [facility] Last Admin: 04/02/17 17:49 Dose: 5 mg Magnesium Hydroxide (Milk Of Magnesia) 30 ml PO DAILY PRN PRN Reason: Constipation Last Admin: 03/25/17 08:05 Dose: 30 ml Mirtazapine (Remeron) 15 mg PO BEDTIME [facility] Last Admin: 04/02/17 20:16 Dose: 15 mg Morphine Sulfate (Morphine) 2 - 6 mg IVPUSH Q2H PRN PRN Reason: Pain Last Admin: 04/03/17 07:46 Dose: 4 mg Multivitamins/Minerals (Ocuvite) 1 each PO BID [facility] Last Admin: 04/02/17 20:16 Dose: 1 each Pantoprazole Sodium (Protonix) 40 mg PO 0900 [facility] Sertraline HCl (Zoloft) 100 mg PO BEDTIME [facility] Last Admin: 04/02/17 20:16 Dose: 100 mg Simvastatin (Zocor) 20 mg PO BEDTIME [facility] Last Admin: 04/02/17 20:16 Dose: 20 mg Discontinued Medications Acetaminophen (Tylenol) 650 mg PO Q4H PRN PRN Reason: Pain Last Admin: 03/23/17 08:03 Dose: 650 mg Acetaminophen (Tylenol Arthritis Pain) 650 mg PO TID [facility] Last Admin: 03/31/17 08:29 Dose: 650 mg Insulin Detemir (Levemir) 24 unit SUBCUT DAILY [facility] Last Admin: 03/16/17 08:22 Dose: 24 units Ketorolac Tromethamine (Toradol) 15 mg IM ONETIME ONE Stop: 04/03/17 02:22 Last Admin: 04/03/17 02:32 Dose: 15 mg Lisinopril (Prinivil) 10 mg PO 1800 [facility] Last Admin: 03/07/17 18:09 Dose: 10 mg Oxycodone HCl (Oxycodone) 5 mg PO ONETIME ONE Stop: 04/03/17 02:23 Last Admin: 04/03/17 02:31 Dose: 5 mg Pantoprazole Sodium (Protonix) 40 mg PO ACBREAKFAST [facility] Last Admin: 03/18/17 10:37 Dose: 40 mg Pantoprazole Sodium (Protonix) 40 mg PO 0900 [facility] Last Admin: 03/23/17 08:06 Dose: 40 mg Pantoprazole Sodium (Protonix) 40 mg PO ACBREAKFAST [facility] Last Admin: 04/02/17 06:21 Dose: 40 mg Sertraline HCl (Zoloft) 50 mg PO BEDTIME [facility] Last Admin: 03/22/17 20:22 Dose: 50 mg - Exam Quality Assessment: No: Supplemental Oxygen General: Alert, Oriented, Moderate Distress Neck: Supple Lungs: Clear to Auscultation, Normal Respiratory Effort Cardiovascular: Irregular Rhythm Extremities: No Pedal Edema, Other (Severe left hip pain). No: Leg Pain Peripheral Pulses: 2+: Radial (L), Radial (R) Neurological: Normal Speech - Problem List Review Problem List Initiated/Reviewed/Updated: Yes - My Orders Last 24 Hours: My Active Orders 04/03/17 04:55 Morphine 2 - 6 mg IVPUSH Q2H PRN 04/03/17 04:57 Saline Lock Insert [OM.PC] Routine 04/03/17 04:59 Hip Min 4V Lt [CR] Routine 04/03/17 05:00 Pelvis 1V or 2V [CR] Routine 04/03/17 08:00 Hip Min 2V or 3V Lt [CR] Routine 04/03/17 09:23 BMP [BASIC METABOLIC PANEL,BMP] [CHEM] Routine CBC WITH AUTO DIFF [HEME] Routine 04/03/17 Breakfast NPO Now [Nothing per Oral Now Diet] [DIET] - Plan Plan:: HISTORY OF PRESENT ILLNESS 87-year-old gentleman was initially admitted due to having some weakness in his left leg with mild elevation in his white blood cell count at [facility]. 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 He also admitted to falling 3 days prior to admission while he was gardening however he denied hitting his head. He did sustain a left elbow avulsion and a contusion to his left wrist. When he fell he denied hitting his head or losing any consciousness September 2016 the patient presented via ground ambulance [facility] for questionable TIA symptoms in which he had right hand weakness, left eyelid drooping and left facial drooping. At that time the patient stated that he woke up out of his sleep with the symptoms however he had went to bed that evening without any symptoms. head CT at that time was negative and a carotid artery Doppler ultrasound which showed 70% stenosis of the right carotid artery or greater. He spent a couple days in the hospital he seemed to improve with his right hand back to normal at that time he had no speech changes no headaches or weakness or numbness or visual changes and he was discharged with the pending MRI scheduled. A few days after discharge patient did have his simvastatin decreased along with his Zetia which was discontinued as there was some thought his symptoms were more muscular related rather than neurovascular. He was to follow-up with Dr. Morales--vascular surgeon. He then saw Dr. Morales, vascular surgeon indicated his symptoms at that time were likely due to left internal carotid artery stenosis and was to be managed medically which included changing from aspirin to Plavix and have him evaluated by neurology--in which he is scheduled in April. His advice of the time was his age and lack of symptoms at that time there was no carotid intervention that was recommended. DIAGNOSTICS Head CT without contrast dated March 01, 2017; focal areas of decreased density right side superior aspect of right thalamus extending into posterior right frontal white matter--consistent with an infarct however appears old however new since comparable studies September 2016. CT brain dated September 2016, mild central and cortical cerebral atrophy and diffuse nonspecific degenerative white matter disease however no current evidence of intracranial mass hemorrhage or acute infarct MRI, brain without contrast, dated September 2016, (due to right hand weakness), Diffuse microvascular disease Communicating hydrocephalus, as noted with subependymal fluid resorption No MRI evidence of acute infarct Carotid artery ultrasound, dated October 2016, right internal carotid artery greater then 70% stenosis, left internal carotid artery less than 50% stenosis, right vertebral artery antegrade CODE STATUS, DO NOT RESUSCITATE Update today. Was notified approximately 0200 this a.m. of patient was found on the floor severe left hip pain after he fell out of bed attempting to use the restroom. He stated he did not hit his head morphine, Toradol was given. X- rays demonstrate acute introchanteric fracture of the proximal left femur impaction. IMPRESSION/PLAN Hip fracture; left; acute introchanteric fracture of the proximal left femur-- impaction. Fragility fracture trauma Leukocytosis, since acute trauma to left hip, will treat him apparently with Rocephin SECONDARY ASSESSMENT Recent CVA; with some residual with ongoing left-sided residual, has improved, LUE strength is progressing nicely in regards to strength and coordination, but left LE is still lacking coordination for independence. Is continuing with speech pathology, minimal dysarthria now much improved. receiving ongoing physical therapy. Continue with aspirin and Plavix, neurology appointment April. Bilateral carotid artery stenosis, medically managed Chronic kidney disease, stage 3, creatinine clearance approximately 28, with estimated GFR 41 High risk for falls, with recent fall. History of possible TIA Diabetes mellitus, stable, Hypertension, stable, continue with TRAVIS inhibitor and atenolol, with his CKD, reduce his TRAVIS inhibitor to 5 mg Depression, stable, continue with Zoloft Hyperlipidemia, stable, likely will not benefit from increase in statin therapy. Aortic stenosis, asymptomatic Due to the patient's left hip fracture, will need to have surgically repaired. Will transfer to higher level of care [facility]. Nothing by mouth status mouth, pain management. Hold aspirin, hold insulin, and all unnecessary medications, normal saline at 60 mL an hour. - Hip Straight Leg Raise Test: Positive Hip Flexion Strength Grade: 2- Poor- Hip Extension Strength Grade: 2- Poor- Hip Internal Rotation Strength Grade: 2- Poor- Hip External Rotation Strength Grade: 2- Poor- Hip Abduction Strength Grade: 2- Poor- Quadriceps Strength: 2- Poor- Neurovascular Status: Sensation Intact Distal to Injury
[2017-04-03] MEDS: Gabapentin 100 MG Cap PO SCH (10:40)
[2017-04-03] MEDS: Insulin Detemir 100 Units/ML 3 ML Pen SUBCUT SCH (10:40)
[2017-04-03] MEDS: Lutein/Minerals/Vitamins A, C & E Tab PO SCH (10:41)
[2017-04-03] MEDS ORDERED: cefTRIAXone 1 GM in Sodium Chloride 0.9% 50 ML IV ONE (11:20)
[2017-04-03] MEDS ORDERED: cefTRIAXone 1 GM Vial IVPUSH SCH (11:30)
[2017-04-03] MEDS ORDERED: Sodium Chloride 0.9% 1,000 ML IV SCH (11:30)
--- NOTE | 2017-04-03 11:36 | PCM.DCSUM1 ---
Discharge Summary - Discharge Data Discharge Date: 04/03/17 Discharge Disposition: DC/Tfer to Acute Hospital 02 Condition: Fair - Patient Summary/Data Complications: Patient fell while attempting to get out of bed and landed on left hip sustained an acute intertrochanteric fracture of his proximal left femur Consults: Consultations 03/05/17 10:06 Consult to Physical Therapy [PT Evaluation and Treatment] [CONS] Routine Consult to Speech Language Pathology [PARTS ADMINISTRATOR Evaluation and Treatment] [CONS] Routine Hospital Course: Up until the patient sustained left hip fracture he was doing quite well with physical therapy due to left-sided residual weakness due to CVA. Patient was approximately 5 days from discharge from rehabilitation/swing bed status here at [facility]. He was being medically managed for Bilateral carotid artery stenosis, his creatinine did improve slightly however does have a history of CK D stage III. with estimated GFR 41 creatinine clearance drug estimated 28. His diabetes was stable, he continued on TRAVIS inhibitor and atenolol however we did reduce his TRAVIS inhibitor to 5 mg. Depression was stable on Zoloft, which continued statin therapy is hyperlipidemia. Due to his CVA; he did have ongoing but much improved left-sided residual weakness and deficit in both his upper and lower extremity. His LUE strength was progressing nicely in regards to strength and coordination, but left LE still lacking coordination for complete independence. Is continuing with speech pathology, minimal dysarthria now much improved. receiving ongoing physical therapy. Continue with aspirin and Plavix, neurology appointment April. His last PT evaluation was April 02 in which he showed improvements in his balance--however much room for improvement before a safe level is reached. Noticeable reduction in left LE strength impacting gait when not using walker. This morning of his fall CBC was assessed and noticed a white count of 16,000 with neutrophils approximate 89%. No obvious occult infection chest x-ray not able to be obtained due to hip fracture, treated empirically day of transport with 1 g Rocephin IV push. He was placed nothing by mouth and unnecessary medicines were held. IV normal saline at 60 mL an hour. - Patient Instructions Diet: NPO - Discharge Plan Home Medications: Home Meds Atenolol [Tenormin] 25 mg PO 1800 11/14/13 [History] Insulin Glargine,Hum.Rec.Anlog [Lantus Solostar] 24 units SQ DAILY 11/14/13 [ History] Sertraline [Zoloft] 50 mg PO BEDTIME 11/14/13 [History] Simvastatin [Zocor] 20 mg PO BEDTIME 11/14/13 [History] Lisinopril 10 mg PO 1800 01/11/16 [History] Aspirin [Ecotrin] 81 mg PO 1800 03/01/17 [History] Clopidogrel [Plavix] 75 mg PO 1800 03/01/17 [History] Lutein/Minerals/Vit A,C & E [Ocuvite] 1 tab PO BID 03/02/17 [History] - Discharge Summary/Plan Comment DC Time >30 min.: Yes Discharge Summary/Plan Comment: FINAL DIAGNOSIS Hip fracture; left; acute introchanteric fracture of the proximal left femur-- impaction. Fragility fracture trauma Leukocytosis, not able to obtain chest x-ray since acute trauma to left hip, will treat him empirically with Rocephin since likely surgical candidate SECONDARY FINAL DIAGNOSIS Recent CVA; with some residual with ongoing left-sided residual, has improved, LUE strength is progressing nicely in regards to strength and coordination, but left LE is still lacking coordination for independence. Is continuing with speech pathology, minimal dysarthria now much improved. receiving ongoing physical therapy. Continue with aspirin and Plavix, neurology appointment April. Bilateral carotid artery stenosis, medically managed Chronic kidney disease, stage 3, creatinine clearance approximately 28, with estimated GFR 41 High risk for falls, with recent fall. History of possible TIA Diabetes mellitus, stable, Hypertension, stable, continue with TRAVIS inhibitor and atenolol, with his CKD, reduce his TRAVIS inhibitor to 5 mg Depression, stable, continue with Zoloft Hyperlipidemia, stable, likely will not benefit from increase in statin therapy. Aortic stenosis, asymptomatic Disposition, Due to the patient's left hip fracture, will need to have surgically repaired. Will transfer to higher level of care [facility]. Nothing by mouth status mouth, pain management. Hold aspirin, hold insulin, and all unnecessary medications, normal saline at 60 mL an hour. Rocephin 1 g IV 1 now. NPO - General Info Functional Status: Reports: New Symptoms (Left hip pain). Denies: Pain Controlled, Tolerating Diet (Nothing by mouth), Ambulating - Review of Systems General: Reports: Weakness. Denies: Fever, Fatigue HEENT: Reports: No Symptoms Pulmonary: Reports: No Symptoms Cardiovascular: Reports: No Symptoms Gastrointestinal: Reports: No Symptoms Genitourinary: Reports: No Symptoms Musculoskeletal: Reports: Other (Left hip pain). Denies: Leg Pain Skin: Reports: Pallor Neurological: Reports: Pre-Existing Deficit, Weakness, Gait Disturbance. Denies : Confusion, Dizziness, Headache, Numbness, Seizure, Syncope, Change in Speech Psychiatric: Denies: Confusion - Patient Data Vitals - Most Recent: Last Vital Signs Temp 97.4 F 04/03/17 06:51 Pulse 54 L 04/03/17 06:51 Resp 20 04/03/17 06:51 BP 144/56 H 04/03/17 06:51 Pulse Ox 95 04/03/17 06:51 Weight - Most Recent: 176 lb 5 oz I&O - Last 24 hours: Intake & Output 04/02/17 04/03/17 04/03/17 22:59 06:59 14:59 Intake Total 520 0 Output Total 350 Balance 520 -350 Lab Results - Last 24 hrs: Laboratory Results - last 24 hr 04/03/17 04/03/17 04/03/17 Range/Units 06:41 09:45 09:45 WBC 16.2 H (5.0-10.0) 10^3/uL RBC 4.12 L (4.50-6.00) 10^6/uL Hgb 10.9 L (13.0-17.0) g/dL Hct 32.5 L (40.0-52.0) % MCV 78.9 L (82.0-92.0) fL MCH 26.4 L (27.0-31.0) pg MCHC 33.5 (32.0-36.0) g/dL RDW 14.0 (11.5-14.5) % Plt Count 293 (150-300) 10^3/uL MPV 7.6 (7.4-10.4) fL Neut % (Auto) 87.6 H (50.0-70.0) % Lymph % (Auto) 5.4 L (20.0-40.0) % [place] % (Auto) 5.8 (2.0-8.0) % Eos % (Auto) 0.8 L (1.0-3.0) % Baso % (Auto) 0.4 (0.0-1.0) % Neut # (Auto) 14.2 H (2.5-7.0) 10^3/uL Lymph # (Auto) 0.9 L (1.0-4.0) 10^3/uL [place] # (Auto) 0.9 H (0.1-0.8) 10^3/uL Eos # (Auto) 0.1 (0.1-0.3) 10^3/uL Baso # (Auto) 0.1 (0.0-0.1) 10^3/uL Sodium 138 (136-145) mmol/L Potassium 5.1 (3.3-5.3) mmol/L Chloride 104 (98-115) mmol/L Carbon Dioxide 26.5 (21.0-32.0) mmol/L BUN 29 H (6-25) mg/dL Creatinine 1.60 H (0.51-1.17) mg/dL Est Cr Clr Drug Dosing 28.83 mL/min Estimated GFR (MDRD) 41 mL/min Glucose 136 H (70-110) mg/dL POC Glucose 147 H (74-106) mg/dl Calcium 8.4 L (8.7-10.3) mg/dL Med Orders - Current: Current Medications Acetaminophen (Tylenol Arthritis Pain) 650 mg PO Q8H PRN PRN Reason: Pain Last Admin: 04/03/17 01:09 Dose: 650 mg Aspirin (Halfprin) 81 mg PO 1800 [facility] Last Admin: 04/02/17 17:47 Dose: 81 mg Atenolol (Tenormin) 25 mg PO 1800 [facility] Last Admin: 04/02/17 17:47 Dose: 25 mg Clopidogrel Bisulfate (Plavix) 75 mg PO 1800 [facility] Last Admin: 04/02/17 17:49 Dose: 75 mg Gabapentin (Neurontin) 100 mg PO DAILY [facility] Last Admin: 04/03/17 10:40 Dose: Not Given Ceftriaxone Sodium 1 gm/ (Sodium Chloride) 50 mls @ 200 mls/hr IV ONETIME ONE Stop: 04/03/17 11:34 Sodium Chloride (Normal Saline) 1,000 mls @ 60 mls/hr IV ASDIRECTED [facility] Insulin Detemir (Levemir) 20 unit SUBCUT DAILY [facility] Last Admin: 04/03/17 10:40 Dose: Not Given Lisinopril (Prinivil) 5 mg PO 1800 [facility] Last Admin: 04/02/17 17:49 Dose: 5 mg Magnesium Hydroxide (Milk Of Magnesia) 30 ml PO DAILY PRN PRN Reason: Constipation Last Admin: 03/25/17 08:05 Dose: 30 ml Mirtazapine (Remeron) 15 mg PO BEDTIME [facility] Last Admin: 04/02/17 20:16 Dose: 15 mg Morphine Sulfate (Morphine) 2 - 6 mg IVPUSH Q2H PRN PRN Reason: Pain Last Admin: 04/03/17 09:59 Dose: 6 mg Multivitamins/Minerals (Ocuvite) 1 each PO BID [facility] Last Admin: 04/03/17 10:41 Dose: Not Given Pantoprazole Sodium (Protonix) 40 mg PO 0900 [facility] Last Admin: 04/03/17 10:41 Dose: Not Given Sertraline HCl (Zoloft) 100 mg PO BEDTIME [facility] Last Admin: 04/02/17 20:16 Dose: 100 mg Simvastatin (Zocor) 20 mg PO BEDTIME [facility] Last Admin: 04/02/17 20:16 Dose: 20 mg Discontinued Medications Acetaminophen (Tylenol) 650 mg PO Q4H PRN PRN Reason: Pain Last Admin: 03/23/17 08:03 Dose: 650 mg Acetaminophen (Tylenol Arthritis Pain) 650 mg PO TID [facility] Last Admin: 03/31/17 08:29 Dose: 650 mg Insulin Detemir (Levemir) 24 unit SUBCUT DAILY [facility] Last Admin: 03/16/17 08:22 Dose: 24 units Ketorolac Tromethamine (Toradol) 15 mg IM ONETIME ONE Stop: 04/03/17 02:22 Last Admin: 04/03/17 02:32 Dose: 15 mg Lisinopril (Prinivil) 10 mg PO 1800 [facility] Last Admin: 03/07/17 18:09 Dose: 10 mg Oxycodone HCl (Oxycodone) 5 mg PO ONETIME ONE Stop: 04/03/17 02:23 Last Admin: 04/03/17 02:31 Dose: 5 mg Pantoprazole Sodium (Protonix) 40 mg PO ACBREAKFAST [facility] Last Admin: 03/18/17 10:37 Dose: 40 mg Pantoprazole Sodium (Protonix) 40 mg PO 0900 [facility] Last Admin: 03/23/17 08:06 Dose: 40 mg Pantoprazole Sodium (Protonix) 40 mg PO ACBREAKFAST [facility] Last Admin: 04/02/17 06:21 Dose: 40 mg Sertraline HCl (Zoloft) 50 mg PO BEDTIME [facility] Last Admin: 03/22/17 20:22 Dose: 50 mg - Exam Quality Assessment: Denies: Supplemental Oxygen General: Reports: Alert, Oriented, Moderate Distress (Moderate distress due to severe left hip pain) Neck: Reports: Supple Lungs: Reports: Clear to Auscultation, Normal Respiratory Effort Cardiovascular: Reports: Regular Rate, Regular Rhythm GI/Abdominal Exam: No Distention Rectal (Males) Exam: Deferred Back Exam: Denies: CVA Tenderness (L), CVA Tenderness (R) Extremities: No Pedal Edema, Other (Severe pain left hip both external and internal rotation. Point tenderness anterior trochanteric. Not appreciate leg length discrepancy) Neurological: Reports: Normal Speech Psy/Mental Status: Reports: Alert, Normal Affect, Normal Mood *Q Meaningful Use (DIS) - VTE *Q VTE Criteria *Q: - Stroke *Q Stroke Criteria *Q: - AMI *Q AMI Criteria *Q:
[2017-04-03] MEDS ORDERED: Ketorolac 30 MG/ML SDV IVPUSH ONE (13:27)
== END 2017-04-03 15:09 | DRG 56 ==
LOC: KA.MS 09:10 → UNDOADMIN 09:10 → KA.MS 09:15
PROVIDERS: ADMIT Nurse Practitioner Family; ATTEND Family Medicine
DX: G81.94 Hemiplegia, unspecified affecting left nondominant side (principal); I63.9 Cerebral infarction, unspecified; S72.142A Displaced intertrochanteric fracture of left femur, initial encounter for closed fracture; R47.1 Dysarthria and anarthria; I65.23 Occlusion and stenosis of bilateral carotid arteries; I12.9 Hypertensive chronic kidney disease with stage 1 through stage 4 chronic kidney disease, or unspecified chronic kidney disease; N18.3 Chronic kidney disease, stage 3 (moderate); E11.22 Type 2 diabetes mellitus with diabetic chronic kidney disease; F32.9 Major depressive disorder, single episode, unspecified; E78.5 Hyperlipidemia, unspecified; I35.0 Nonrheumatic aortic (valve) stenosis; Z79.4 Long term (current) use of insulin; Z79.82 Long term (current) use of aspirin; Z79.01 Long term (current) use of anticoagulants; Z79.899 Other long term (current) drug therapy; W06.XXXA Fall from bed, initial encounter; Y92.230 Patient room in hospital as the place of occurrence of the external cause; Z91.81 History of falling; Z86.73 Personal history of transient ischemic attack (TIA), and cerebral infarction without residual deficits; Z66 Do not resuscitate
CPT/HCPCS: 36415; 72170; 80048; 82272; 82962; 85025; 85027; 92507-GN; 92522; 93971; 97110-GP; 97112-GP; 97116-GP; 97140-GP; 97150-GP; 97163-GP; 97530-GP; 97537-GP; A9270-GY; G0283-GP; J0696; J1815-GY; J1885; J2270; J7030

== ENCOUNTER 2017-04-07 12:51 | Inpatient (IN) | payer MEDICARE, OTHER ==
[2017-04-07] MEDS ORDERED: Acetaminophen 325 MG Tab PO PRN ×2 (18:10→19:46)
[2017-04-07] MEDS ORDERED: oxyCODONE 5 MG Tab ONE (18:34)
[2017-04-07] MEDS ORDERED: oxyCODONE 5 MG Tab PO PRN (19:46)
[2017-04-07] MEDS: Simvastatin 20 MG Tab PO SCH (20:52)
[2017-04-07] MEDS: Lutein/Minerals/Vitamins A, C & E Tab PO SCH (20:52)
[2017-04-07] MEDS: traMADol 50 MG Tab PO PRN (20:53)
[2017-04-07] MEDS: Nystatin Topical Powder 15 GM Bottle TOP SCH (20:53)
[2017-04-07] MEDS: Mirtazapine 15 MG Tab PO SCH (20:53)
[2017-04-07] MEDS ORDERED: Sertraline 50 MG Tab PO SCH (21:00)
[2017-04-08] MEDS: traMADol 50 MG Tab PO PRN (05:43)
[2017-04-08] MEDS: Pantoprazole 40 MG Tab.CR PO SCH ×2 (05:43→06:09)
[2017-04-08] MEDS: Nystatin Topical Powder 15 GM Bottle TOP SCH ×2 (08:41→20:46)
[2017-04-08] MEDS: Insulin Detemir 100 Units/ML 3 ML Pen SUBCUT SCH (08:41)
[2017-04-08] MEDS: Gabapentin 100 MG Cap PO SCH (08:41)
[2017-04-08] MEDS: Aspirin 81 MG Tab.EC PO SCH (08:41)
[2017-04-08] MEDS: Clopidogrel 75 MG Tab PO SCH (08:42)
[2017-04-08] MEDS: Lisinopril 5 MG Tab PO SCH (08:42)
[2017-04-08] MEDS: Atenolol 25 MG Tab PO SCH (08:42)
[2017-04-08] MEDS: Lutein/Minerals/Vitamins A, C & E Tab PO SCH ×2 (08:55→20:46)
--- NOTE | 2017-04-08 11:15 | PCM.HP ---
H&P History of Present Illness - General Date of Service: 04/08/17 Admit Problem/Dx: Admission Diagnosis/Problem Admission Diagnosis/Problem Arthropathy of left hip Source of Information: Patient, Old Records History Limitations: Reports: No Limitations - History of Present Illness Initial Comments - Free Text/Narative: Mr. Palm is an 87yoM with a history notable for recent CVA for which he was undergoing rehabilitation in swing bed status at [facility] when he sustained a ground level fall resulting in a left intertrochanteric femur fracture. He was transferred to [facility] and underwent intermedullary fixation on 04/03/17 and had an uncomplicated postoperative course. He was discharged from [facility] to return to rehabilitation being admitted in swing bed status at [facility]. Since arrival at [facility] late in the day on 04/07/17, nursing reports difficulty with pain control and confusion. After a conversation with family members, they were concerned about his tolerance of narcotic pain medications. He was receiving oxycodone 5mg every 6 hours as needed for pain and this was switched overnight to tramadol 50mg TID as needed for pain with overall improvement in pain control, though about 6-7 hours after a dose of tramadol last evening, he began complaining more of pain. His confusion improved throughout the night and he became less frustrated early this morning. This morning, he reports feeling overall well, though frustrated about today having previously been the day when he was going to be discharged from his initial swing bed stay. He currently denies any pain when not moving and states that his pain is mainly associated with movement and putting too much weight on the left side while lying in bed. He states his left-sided upper extremity weakness is unchanged from prior to the femur fracture. The only other complaint he has this morning is having a decreased appetite in the last day and some difficulty swallowing yesterday, which he attributes to his mouth being dry. Left Hip Pain Score (Numeric/FACES): 5 - Related Data Allergies/Adverse Reactions: Allergies Allergy/AdvReac Type Severity Reaction Status Date / Time No Known Allergies Allergy Verified 04/07/17 14:12 Home Medications: Home Meds Atenolol [Tenormin] 25 mg PO DAILY 11/14/13 [History] Sertraline [Zoloft] 100 mg PO BEDTIME 11/14/13 [History] Simvastatin [Zocor] 20 mg PO BEDTIME 11/14/13 [History] Lisinopril 5 mg PO DAILY 01/11/16 [History] Aspirin [Ecotrin] 81 mg PO DAILY 03/01/17 [History] Clopidogrel [Plavix] 75 mg PO DAILY 03/01/17 [History] Lutein/Minerals/Vit A,C & E [Ocuvite] 1 tab PO BID 03/02/17 [History] Acetaminophen [Tylenol] 650 mg PO Q8HR PRN 04/07/17 [History] Gabapentin [Neurontin] 100 mg PO DAILY 04/07/17 [History] Insulin Detemir [Levemir] 20 unit SUBCUT DAILY 04/07/17 [History] Mirtazapine 15 mg PO BEDTIME 04/07/17 [History] Nystatin [Nystop] 1 applic TOP BID 04/07/17 [History] Pantoprazole Sodium [Protonix] 40 mg PO DAILY 04/07/17 [History] Sennosides/Docusate Sodium [Senna S Tablet] 1 tab PO BID 04/07/17 [History] oxyCODONE 5 mg PO Q4H PRN 04/07/17 [History] Past Medical History HEENT History: Reports: Cataract, Impaired Vision Cardiovascular History: Reports: Bypass, CAD, High Cholesterol, Hypertension, Other (See Below) (Aortic stenosis, Carotid artery stenosis) Gastrointestinal History: Reports: Chronic Constipation Genitourinary History: Reports: Chronic Renal Insuffiency Musculoskeletal History: Reports: Fracture, Osteoarthritis, Other (See Below) Other Musculoskeletal History: Left Hip nailing Neurological History: Reports: CVA, TIA Psychiatric History: Reports: Depression Endocrine/Metabolic History: Reports: Diabetes, Type II - Past Surgical History HEENT Surgical History: Reports: Cataract Surgery, Tonsillectomy Cardiovascular Surgical History: Reports: Coronary Artery Bypass GI Surgical History: Reports: Appendectomy, Cholecystectomy Social & Family History - Family History Cardiac: Reports: CAD (father, brother) Oncologic: Reports: Other (See Below) (unknown cancer-father) - Tobacco Use Smoking Status *Q: Former Smoker Years of Tobacco use: 40 Used Tobacco, but Quit: Yes Month Tobacco Last Used: 1978 Second Hand Smoke Exposure: No - Alcohol Use Days Per Week of Alcohol Use: 0 - Recreational Drug Use Recreational Drug Use: No - Living Situation & Occupation Living situation: Reports: Occupation: Disabled H&P Review of Systems - Review of Systems: Review Of Systems: See Below General: Reports: Weakness (unchanged left upper extremity weakness), Fatigue, Decreased Appetite. Denies: Fever, Chills HEENT: Denies: Headaches, Hearing Changes, Visual Changes Pulmonary: Denies: Shortness of Breath, Wheezing, Cough Cardiovascular: Denies: Chest Pain, Palpitations, Lightheadedness, Syncope Gastrointestinal: Reports: Anorexia, Difficulty Swallowing (noted yesteraday, but improved today). Denies: Abdominal Pain, Black Stool, Bloody Stool, Constipation, Diarrhea, Nausea, Vomiting Genitourinary: Denies: Dysuria, Urgency, Incontinence Musculoskeletal: Denies: Neck Pain, Shoulder Pain, Arm Pain, Back Pain Skin: Reports: Bruising. Denies: Rash, Erythema Psychiatric: Denies: Confusion (present last evening, resolved this morning), Agitation, Hallucinations Neurological: Denies: Headache, Numbness, Tingling Exam - Exam Exam: See Below - Vital Signs Vital Signs: Last Vital Signs Temp 37.1 C 04/08/17 04:08 Pulse 76 04/08/17 08:42 Resp 18 04/08/17 04:08 BP 154/62 H 04/08/17 08:42 Pulse Ox 95 04/08/17 04:08 Weight: 86.364 kg - Exam General: Alert, Oriented, Cooperative HEENT: Conjunctiva Clear, Hearing Intact, Mucosa Moist & Chapman Neck: Supple, Trachea Midline Lungs: Clear to Auscultation, Normal Respiratory Effort Cardiovascular: Regular Rate, Regular Rhythm GI/Abdominal Exam: Normal Bowel Sounds, Soft, Non-Tender, No Distention Extremities: No Pedal Edema, Normal Capillary Refill, Other (LLE with slight external rotation; RUE with full ROM; finishing tunnel operator strength decreased in LUE) Peripheral Pulses: 2+: Radial (L), Radial (R), Posterior Tibial (L), Posterior Tibial (R), Dorsalis Pedis (L), Dorsalis Pedis (R) Skin: Warm, Dry, Other (Left lateral hip with overlying dressing without significant drainage) Neurological: Normal Tone, Sensation Intact Neuro Extensive - Mental Status: Alert, Oriented x3, Normal Mood/Affect, Normal Cognition, Memory Intact Psychiatric: Alert - Patient Data Lab Results Last 24 hrs: Laboratory Results - last 24 hr 04/07/17 04/08/17 Range/Units 18:30 06:16 POC Glucose 144 H 166 H (74-106) mg/dl *Q Meaningful Use (ADM) - VTE *Q VTE Criteria *Q: - Stroke *Q Stroke Criteria *Q: - AMI *Q AMI Criteria *Q: Problem List Initiated/Reviewed/Updated: Yes Orders Last 24hrs: Active Orders 24 hr Category Date Time Status Patient Status [ADT] Routine ADT 04/07/17 13:45 Ordered Blood Glucose Check, Bedside [RC] 0700 Care 04/07/17 18:10 Active Dressing Change [Wound Care] [RC] DAILY Care 04/07/17 18:19 Active Intake and Output [RC] 1400,2200,0600 Care 04/07/17 18:15 Active May Shower [RC] ASDIRECTED Care 04/07/17 18:10 Active Oxygen Therapy [RC] PRN Care 04/07/17 18:10 Active Up With Assistance [RC] ASDIRECTED Care 04/07/17 18:10 Active VTE/DVT Education [RC] PER UNIT ROUTINE Care 04/07/17 18:10 Active Vital Signs [RC] 0700,1500 Care 04/07/17 18:10 Active Consult to Chief Airline Radio Operator [CONS] Routine Cons 04/07/17 18:10 Active Consult to Glass Cut Off Tender [CONS] Routine Cons 04/07/17 18:10 Active PT Evaluation and Treatment [CONS] Routine Cons 04/07/17 18:10 Active Acetaminophen [Tylenol] Med 04/07/17 19:46 Active 650 mg PO Q8HR PRN Aspirin [Halfprin] Med 04/08/17 09:00 Active 81 mg PO DAILY Atenolol [Tenormin] Med 04/08/17 09:00 Active 25 mg PO DAILY Clopidogrel [Plavix] Med 04/08/17 09:00 Active 75 mg PO DAILY Docusate Sodium/Sennosides [Senna Plus] Med 04/07/17 21:00 Active 1 tab PO BID Gabapentin [Neurontin] Med 04/08/17 09:00 Active 100 mg PO DAILY Insulin Detemir [Levemir] Med 04/08/17 09:00 Active 20 unit SUBCUT DAILY Lisinopril [Prinivil] Med 04/08/17 09:00 Active 5 mg PO DAILY Lutein/Minerals/Vit A,C & E [Ocuvite] Med 04/07/17 21:00 Active 1 each PO BID Mirtazapine [Remeron] Med 04/07/17 21:00 Active 15 mg PO BEDTIME Nystatin [Nystop] Med 04/07/17 21:00 Active 0 gm TOP BID Pantoprazole [ProTONIX] Med 04/08/17 07:00 Active 40 mg PO DAILY@0700 Sertraline [Zoloft] Med 04/08/17 21:00 Active 100 mg PO BEDTIME Simvastatin [Zocor] Med 04/07/17 21:00 Active 20 mg PO BEDTIME traMADol [Ultram] Med 04/08/17 12:00 Active 50 mg PO Q6H Resuscitation Status Routine Resus Stat 04/07/17 18:10 Ordered Medication Orders Acetaminophen (Tylenol) 650 mg PO Q8HR PRN PRN Reason: Pain Last Admin: 04/08/17 08:43 Dose: 650 mg Aspirin (Halfprin) 81 mg PO DAILY [facility] Last Admin: 04/08/17 08:41 Dose: 81 mg Atenolol (Tenormin) 25 mg PO DAILY [facility] Last Admin: 04/08/17 08:42 Dose: 25 mg Clopidogrel Bisulfate (Plavix) 75 mg PO DAILY [facility] Last Admin: 04/08/17 08:42 Dose: 75 mg Gabapentin (Neurontin) 100 mg PO DAILY [facility] Last Admin: 04/08/17 08:41 Dose: 100 mg Insulin Detemir (Levemir) 20 unit SUBCUT DAILY [facility] Last Admin: 04/08/17 08:41 Dose: 20 unit Lisinopril (Prinivil) 5 mg PO DAILY [facility] Last Admin: 04/08/17 08:42 Dose: 5 mg Mirtazapine (Remeron) 15 mg PO BEDTIME [facility] Last Admin: 04/07/17 20:53 Dose: 15 mg Multivitamins/Minerals (Ocuvite) 1 each PO BID [facility] Last Admin: 04/08/17 08:55 Dose: Admin: 04/07/17 20:52 Dose: 1 each Nystatin (Nystop) 0 gm TOP BID [facility] Last Admin: 04/08/17 08:41 Dose: 1 applic Admin: 04/07/17 20:53 Dose: Not Given Pantoprazole Sodium (Protonix) 40 mg PO DAILY@0700 [facility] Last Admin: 04/08/17 06:09 Dose: Not Given Admin: 04/08/17 05:43 Dose: 40 mg Senna/Docusate Sodium (Senna Plus) 1 tab PO BID [facility] Last Admin: 04/08/17 08:40 Dose: 1 tab Admin: 04/07/17 20:52 Dose: 1 tab Sertraline HCl (Zoloft) 100 mg PO BEDTIME MELY Simvastatin (Zocor) 20 mg PO BEDTIME [facility] Last Admin: 04/07/17 20:52 Dose: 20 mg Tramadol HCl (Ultram) 50 mg PO Q6H [facility] Assessment/Plan Comment:: Mr. Palm is an 87yoM with a history notable for recent CVA for which he was undergoing rehabilitation in swing bed status at [facility] when he sustained a ground level fall resulting in a left intertrochanteric femur fracture. He was transferred to [facility] and underwent intermedullary fixation on 04/03/17 and had an uncomplicated postoperative course. He was discharged from [facility] and is now being admitted in swing bed status at [facility] for ongoing rehabilitation. # Debility: Primarily secondary to left intertrochanteric fracture s/p intermedullary nailing. Also secondary to recent stroke for which he was receiving physical therapy services prior to fracture. Resume physical therapy rehabilitation. # Hx left intertrochanteric fracture: S/p intermedullary nailing on 04/03/17. Will attempt to optimize pain control with scheduled tramadol 50mg q6h with Tylenol 650mg q4h prn for breakthrough pain. Daily dressing changes. Post- operative appointments scheduled in [place] for 04/21/17 and 04/27/17. # Anemia: Postoperative anemia with most recent Hgb 8.2 the day prior to discharge. Recheck tomorrow. # Hx CVA: Residual left sided weakness. Continue Plavix, ASA, and statin. Continue physical therapy rehabilitation. Stable chronic medical conditions: # CAD/HLD: S/p remote CABG 3v. No active angina. Continue BB, ASA, and statin. # HTN: BPs slightly elevated, likely in the setting of pain, so will continue to monitor and consider dosage optimization if needed. Continue lisinopril and atenolol. # GERD: Stable. Continue PPI. # CKD, stage 3: Stable Recheck BMP tomorrow. # DMT2: BGs well controlled. Continue insulin detemir 20 units daily and BG checks daily. # Depression: Stable. Continue sertraline, mirtazepine, and gabapentin. # FEN: No IVF or IV medications. Electrolytes normal the day prior to admission ; recheck tomorrow. Diabetic diet. # PPX: SCDs and ambulation for DVT ppx; of note, he received 5 days of enoxaparin for ppx and this was discontinued upon transfer to swing bed. # CODE: DNR. # Disposition: Admit to swing bed for rehabilitation.
[2017-04-08] MEDS: traMADol 50 MG Tab PO SCH ×2 (11:56→18:40)
[2017-04-08] MEDS ORDERED: LORazepam 0.5 MG Tab PO PRN (18:27)
[2017-04-08] MEDS: Sertraline 50 MG Tab PO SCH (20:42)
[2017-04-08] MEDS: Mirtazapine 15 MG Tab PO SCH (20:42)
[2017-04-08] MEDS: Simvastatin 20 MG Tab PO SCH (20:46)
[2017-04-09] MEDS: traMADol 50 MG Tab PO SCH ×2 (03:07→05:42)
[2017-04-09] MEDS: Pantoprazole 40 MG Tab.CR PO SCH ×2 (05:42→06:20)
[2017-04-09] MEDS: Nystatin Topical Powder 15 GM Bottle TOP SCH ×2 (09:10→21:17)
[2017-04-09] MEDS: Insulin Detemir 100 Units/ML 3 ML Pen SUBCUT SCH (09:17)
[2017-04-09] MEDS ORDERED: Flumazenil 0.1 MG/ML 5 ML MDV IVPUSH ONE (10:31)
[2017-04-09] MEDS ORDERED: cefTRIAXone 1 GM in Sodium Chloride 0.9% 50 ML IV ONE (10:31)
[2017-04-09] MEDS ORDERED: cefTRIAXone 1 GM Vial IVPUSH ONE (10:45)
[2017-04-09] MEDS ORDERED: Flumazenil 0.1 MG/ML 5 ML MDV IVPUSH PRN (11:24)
[2017-04-09] MEDS: Aspirin 81 MG Tab.EC PO SCH (11:50)
[2017-04-09] MEDS: Gabapentin 100 MG Cap PO SCH (11:50)
[2017-04-09] MEDS: Lisinopril 5 MG Tab PO SCH (11:51)
[2017-04-09] MEDS: Clopidogrel 75 MG Tab PO SCH (11:51)
[2017-04-09] MEDS: Lutein/Minerals/Vitamins A, C & E Tab PO SCH ×2 (11:51→21:22)
[2017-04-09] MEDS: Atenolol 25 MG Tab PO SCH (11:51)
[2017-04-09] MEDS: Acetaminophen Susp 160 MG/5 ML 120 ML Bottle PO PRN (17:53)
[2017-04-09] MEDS: Mirtazapine 15 MG Tab PO SCH (21:22)
[2017-04-09] MEDS: Simvastatin 20 MG Tab PO SCH (21:22)
[2017-04-09] MEDS: Sertraline 50 MG Tab PO SCH (21:23)
[2017-04-09] MEDS: Acetaminophen 650 MG Tab.ER PO PRN (21:23)
[2017-04-10] MEDS: Acetaminophen 650 MG Tab.ER PO PRN ×3 (06:36→20:55)
[2017-04-10] MEDS: Pantoprazole 40 MG Tab.CR PO SCH (06:36)
[2017-04-10] MEDS: Nystatin Topical Powder 15 GM Bottle TOP SCH ×2 (08:25→21:01)
[2017-04-10] MEDS: Aspirin 81 MG Tab.EC PO SCH (08:26)
[2017-04-10] MEDS: Atenolol 25 MG Tab PO SCH (08:26)
[2017-04-10] MEDS: Gabapentin 100 MG Cap PO SCH (08:26)
[2017-04-10] MEDS: Clopidogrel 75 MG Tab PO SCH (08:26)
[2017-04-10] MEDS: Lisinopril 5 MG Tab PO SCH (08:26)
[2017-04-10] MEDS: Lutein/Minerals/Vitamins A, C & E Tab PO SCH ×2 (08:27→21:00)
[2017-04-10] MEDS: Insulin Detemir 100 Units/ML 3 ML Pen SUBCUT SCH (08:37)
[2017-04-10] MEDS: Magnesium Hydroxide 400 MG/5 ML Susp 30 ML Cup PO PRN (11:13)
[2017-04-10] MEDS: Acetaminophen Susp 160 MG/5 ML 120 ML Bottle PO PRN (11:27)
[2017-04-10] MEDS ORDERED: Morphine 2 MG/ML Syringe IVPUSH ONE ×3 (15:22→22:38)
[2017-04-10] MEDS: traMADol 50 MG Tab PO PRN ×2 (15:42→21:26)
[2017-04-10] MEDS: Mirtazapine 15 MG Tab PO SCH (20:58)
[2017-04-10] MEDS: Sertraline 50 MG Tab PO SCH (20:58)
[2017-04-10] MEDS: Simvastatin 20 MG Tab PO SCH (20:59)
[2017-04-10] MEDS ORDERED: Morphine 2 MG/ML Syringe ONE (21:14)
[2017-04-10] MEDS ORDERED: traMADol 50 MG Tab PO PRN (21:31)
[2017-04-11] MEDS: Morphine 2 MG/ML Syringe IVPUSH PRN ×3 (03:23→20:35)
[2017-04-11] MEDS: Pantoprazole 40 MG Tab.CR PO SCH (06:14)
[2017-04-11] MEDS ORDERED: LORazepam 0.5 MG Tab PO ONE (08:45)
[2017-04-11] MEDS: Clopidogrel 75 MG Tab PO SCH (09:02)
[2017-04-11] MEDS: Aspirin 81 MG Tab.EC PO SCH (09:03)
[2017-04-11] MEDS: Gabapentin 100 MG Cap PO SCH (09:03)
[2017-04-11] MEDS: Lisinopril 5 MG Tab PO SCH (09:04)
[2017-04-11] MEDS: Atenolol 25 MG Tab PO SCH (09:04)
[2017-04-11] MEDS: Lutein/Minerals/Vitamins A, C & E Tab PO SCH ×2 (09:05→20:52)
[2017-04-11] MEDS: Acetaminophen 650 MG Tab.ER PO SCH ×3 (09:05→20:52)
--- NOTE | 2017-04-11 10:13 | PCM.PN ---
- General Info Date of Service: 04/11/17 Admission Dx/Problem (Free Text): Admission Diagnosis/Problem Admission Diagnosis/Problem Arthropathy of left hip Subjective Update: Pt complaining of pain in sacral area not managed with Morphine 1 mg IV Increased shortness of breath and anxiety Functional Status: Reports: Other (Pain improves with morphine 1 mg IV but becomes unbearable again in less than 6 hours.) - Review of Systems Pulmonary: Reports: Shortness of Breath, Cough Cardiovascular: Reports: No Symptoms Gastrointestinal: Reports: No Symptoms Musculoskeletal: Reports: Other (low back, sacral area pain as well as left hip pain) Skin: Reports: No Symptoms Neurological: Reports: Other (No confusion for the last 24 hours) - Patient Data Vitals - Most Recent: Last Vital Signs Temp 97.5 F 04/11/17 06:25 Pulse 69 04/11/17 09:04 Resp 22 H 04/11/17 06:25 BP 156/65 H 04/11/17 09:04 Pulse Ox 93 L 04/11/17 06:25 Weight - Most Recent: 190 lb 6.4 oz I&O - Last 24 Hours: Intake & Output 04/10/17 04/11/17 04/11/17 22:59 06:59 14:59 Intake Total 200 0 Output Total 150 Balance 200 -150 Lab Results Last 24 Hours: Laboratory Results - last 24 hr 04/10/17 04/10/17 04/10/17 Range/Units 11:37 17:33 21:23 POC Glucose 134 H 86 139 H (74-106) mg/dl 04/11/17 Range/Units 06:31 POC Glucose 139 H (74-106) mg/dl Gabe Results Last 24 Hours: Microbiology 04/09/17 11:10 Aerobic Blood Culture - Preliminary Blood - Venous - Lab Draw NO GROWTH AFTER 1 DAY Anaerobic Blood Culture - Preliminary NO GROWTH AFTER 1 DAY 04/09/17 10:55 Aerobic Blood Culture - Preliminary Blood - Venous NO GROWTH AFTER 1 DAY Anaerobic Blood Culture - Preliminary NO GROWTH AFTER 1 DAY 04/08/17 15:30 Wound Culture - Preliminary Hip, Left NO GROWTH AFTER 2 DAYS Med Orders - Current: Current Medications Acetaminophen (Tylenol Solution 160 Mg/5 Ml) 480 mg PO Q4H PRN PRN Reason: Pain Last Admin: 04/10/17 11:27 Dose: 15 ml Acetaminophen (Tylenol Arthritis Pain) 650 mg PO TID MELY Last Admin: 04/11/17 09:05 Dose: 650 mg Aspirin (Halfprin) 81 mg PO DAILY [facility] Last Admin: 04/11/17 09:03 Dose: 81 mg Atenolol (Tenormin) 25 mg PO DAILY [facility] Last Admin: 04/11/17 09:04 Dose: 25 mg Clopidogrel Bisulfate (Plavix) 75 mg PO DAILY [facility] Last Admin: 04/11/17 09:02 Dose: 75 mg Gabapentin (Neurontin) 100 mg PO DAILY [facility] Last Admin: 04/11/17 09:03 Dose: 100 mg Insulin Detemir (Levemir) 20 unit SUBCUT DAILY [facility] Last Admin: 04/10/17 08:37 Dose: 20 unit Lisinopril (Prinivil) 5 mg PO DAILY [facility] Last Admin: 04/11/17 09:04 Dose: 5 mg Magnesium Hydroxide (Milk Of Magnesia) 30 ml PO DAILY PRN PRN Reason: Constipation Last Admin: 04/10/17 11:13 Dose: 30 ml Mirtazapine (Remeron) 15 mg PO BEDTIME [facility] Last Admin: 04/10/17 20:58 Dose: 15 mg Multivitamins/Minerals (Ocuvite) 1 each PO BID [facility] Last Admin: 04/11/17 09:05 Dose: Not Given Nystatin (Nystop) 0 gm TOP BID [facility] Last Admin: 04/10/17 21:01 Dose: 1 applic Pantoprazole Sodium (Protonix) 40 mg PO DAILY@0700 [facility] Last Admin: 04/11/17 06:14 Dose: 40 mg Senna/Docusate Sodium (Senna Plus) 1 tab PO BID [facility] Last Admin: 04/11/17 09:03 Dose: 1 tab Sertraline HCl (Zoloft) 100 mg PO BEDTIME [facility] Last Admin: 04/10/17 20:58 Dose: 100 mg Simvastatin (Zocor) 20 mg PO BEDTIME [facility] Last Admin: 04/10/17 20:59 Dose: 20 mg Tramadol HCl (Ultram) 50 mg PO Q4H PRN PRN Reason: Pain Last Admin: 04/11/17 06:25 Dose: 50 mg Discontinued Medications Acetaminophen (Tylenol) 650 mg PO Q4H PRN PRN Reason: Pain (Mild 1-3)/fever Acetaminophen (Tylenol) 650 mg PO Q8HR PRN PRN Reason: Pain Last Admin: 04/08/17 08:43 Dose: 650 mg Acetaminophen (Tylenol Arthritis Pain) 650 mg PO TID PRN PRN Reason: Pain Last Admin: 04/10/17 20:55 Dose: 650 mg Ceftriaxone Sodium (Rocephin) 1 gm IVPUSH ONETIME ONE Stop: 04/09/17 10:46 Last Admin: 04/09/17 11:07 Dose: 1 gm Flumazenil (Romazicon) 0.2 mg IVPUSH ONETIME ONE Stop: 04/09/17 10:32 Last Admin: 04/09/17 11:04 Dose: 0.2 mg Flumazenil (Romazicon) 0.2 mg IVPUSH ONETIME PRN PRN Reason: drowsy Stop: 04/09/17 12:00 Last Admin: 04/09/17 11:27 Dose: 0.2 mg Lorazepam (Ativan) 2 mg PO ONETIME PRN PRN Reason: Anxiety Last Admin: 04/08/17 20:42 Dose: 2 mg Lorazepam (Ativan) 0.5 mg PO ONETIME ONE Stop: 04/11/17 08:46 Last Admin: 04/11/17 08:58 Dose: 0.5 mg Morphine Sulfate (Morphine) 1 mg IVPUSH ONETIME ONE Stop: 04/10/17 15:23 Last Admin: 04/10/17 15:38 Dose: 1 mg Morphine Sulfate (Morphine) 1 mg IVPUSH ONETIME ONE Stop: 04/10/17 21:07 Last Admin: 04/10/17 21:20 Dose: 1 mg Morphine Sulfate (Morphine) Confirm Administered Dose 2 mg .ROUTE .STK-MED ONE Stop: 04/10/17 21:15 Last Admin: 04/10/17 21:31 Dose: Not Given Morphine Sulfate (Morphine) 1 mg IVPUSH Q6H PRN PRN Reason: Pain Stop: 04/11/17 09:30 Last Admin: 04/11/17 08:55 Dose: 1 mg Morphine Sulfate (Morphine) 1 mg IVPUSH ONETIME ONE Stop: 04/10/17 22:39 Last Admin: 04/10/17 22:38 Dose: 1 mg Oxycodone HCl (Oxycodone) Confirm Administered Dose 5 mg .ROUTE .STK-MED ONE Stop: 04/07/17 18:35 Last Admin: 04/07/17 18:44 Dose: 5 mg Oxycodone HCl (Oxycodone) 5 mg PO Q4H PRN PRN Reason: Pain Sertraline HCl (Zoloft) 50 mg PO BEDTIME [facility] Last Admin: 04/07/17 20:53 Dose: 50 mg Tramadol HCl (Ultram) 50 mg PO TID PRN PRN Reason: Pain Last Admin: 04/08/17 05:43 Dose: 50 mg Tramadol HCl (Ultram) 50 mg PO Q6H MELY Last Admin: 04/09/17 05:42 Dose: 50 mg Tramadol HCl (Ultram) 50 mg PO BID PRN PRN Reason: Pain Last Admin: 04/10/17 21:26 Dose: 50 mg - Exam Quality Assessment: Supplemental Oxygen General: Alert, Other (He has been in severe pain until morphine administered. This lasts for less than 6 hours.) Lungs: Rales (rales bilaterally) Cardiovascular: Murmurs (s1 murmur) Extremities: No Pedal Edema, Other (Surgical incision to left hip dressing dry.) Skin: Warm, Dry, Intact Wound/Incisions: Dressing Dry and Intact Neurological: No New Focal Deficit, Other (recent CVA with left sided weakness) Psy/Mental Status: Anxious - Problem List Review Problem List Initiated/Reviewed/Updated: Yes - My Orders Last 24 Hours: My Active Orders 04/10/17 16:18 KIERA Hose [Antiembolic Hose] [OM.PC] Routine 04/10/17 21:31 traMADol [Ultram] 50 mg PO Q4H PRN 04/11/17 07:28 Antiembolic Devices [RC] ASDIRECTED Antiembolic Hose [OM.PC] Routine 04/11/17 08:45 Hip Min 2V w Pelvis Bi [CR] Routine 04/11/17 09:00 Acetaminophen [Tylenol Arthritis Pain] 650 mg PO TID 04/11/17 09:16 CXR [Chest 1V Frontal] [CR] Routine 04/11/17 10:05 DD [D-DIMER QUANTITATIVE] [COAG] Routine 04/11/17 10:06 CBC WITH AUTO DIFF [HEME] Routine CMP [COMPREHENSIVE METABOLIC PN,CMP] [CHEM] Routine - Assessment Assessment:: Mr. Palm is an 87yoM with a history of recent CVA for which he was undergoing rehabilitation in swing bed status at [facility] when he sustained a ground level fall resulting in a left intertrochanteric femur fracture. He was transferred to [facility] and underwent intermedullary fixation on 04/03/17 and had an uncomplicated postoperative course. He was discharged from [facility] to return to rehabilitation in swing bed at [facility]. Since arrival at [facility] late in the day on 04/07/17, nursing reports difficulty with pain control and confusion. After a conversation with family members, they were concerned about his tolerance of narcotic pain medications. He was receiving oxycodone 5mg every 6 hours as needed for pain and this was switched to tramadol 50mg TID as needed for pain with overall improvement in pain control. Pt had 3 evenings with extreme confusion from 5pm-8pm. For the last 24 hours he has been lucid, alert and conversing normally. Yesterday about 3 pm he was complaining of severe pain in left low back sacral area. Pain was not relieved with tramadol or tylenol. He was given Morphine 1 mg IV and did express complete relief of pain. Again about 9pm he complained of severe left low back/ sacral area pain and requested transfer back to [place] as his pain was not controlled. He was given Morphine 1-2 mg every 6 hours for the pain and did appear to sleep comfortably. This morning again he was in severe pain until receiving the morphine. Pt is diabetic and is not eating well. His blood sugar was 86 at and he ate ice cream and cookies. His blood sugar this morning is 139. He has been receiving levemir insulin 20 units q am. 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 He has been noted to be coughing more the last 24 hours after any eating or drinking. He is more short of breath and anxious. His O2 sats dropped to 79% on O2 at 2 liters this morning. Sats improved to 92 % with O2 at 6 liters. CXR showing bilateral primarily interstitial infiltrates. Differential includes edema vs pneumonia, vs ARDS, vs hemorrhage. Question of fat emboli explaining bilateral pulmonary parenchymal infiltrates DDimer 1840 ASSESSMENT/PLAN 1. Status post left intertrochanteric fracture sustained in ground level fall. S /P intermedullary nailing on 04/03/17. Pain is not controlled with tylenol Arthritis tid scheduled, Tramadol 50 mg q 4 hrs prn and Morphine 1 mg IV q 6 hrs. Xray of left hip and pelvis this morning. Pelvic Xray showing moderate illeus, no new findings with regard to hip except interstitial fixation of left hip fracture. Ortho discharge instructions were to continue PT WBAT. Will continue Morphine 1 mg q 6 hrs prn and add Risperidal 0.5mg tid. Continue with PT. Post op appointments in [place] 04/21/17 and 04/27/17. 2. Pneumonia: Will treat CXR infiltrates and Leukocytosis with left shift (WBC 21.0 with neutrophils 89.0%) as pneumonia. Does not fit pattern of fat emboli with timing of fx 1 week ago. Begin levaquin 500 mg po today. Will adjust for kidney function by pharmacy. Recheck CBC and BMP in am. 3. Elevated DDimer: Will attribute elevated DDimer to recent surgery. However , will also begin lovenox and coumadin. Pt is on Plavix. Balancing risk of bleed related to recent CVA vs possible PE. 4. Hx of CVA: residual left sided weakness. Pt is on Plavix, statin and ASA. Will continue same, adding lovenox and coumadin for possible PE. 5. Anemia, Post op: Improving. Hgb 8.8 today, 8.2 on 04/06/17 at [place]. 6. Dysphagia with early developing illeus noted on pelvic Xray. Diet thickened liquids. Will get swallow eval. 7. Diabetes type 2: Pt is not eating well due to pain. Will decrease detemir to 10 units and continue with qid blood sugars. Stable chronic medical conditions: CAD: S/P remote CABG X3. No Angina, Continue BB, ASA and STATIN. HTN: Continue lisinopril and atenolol. Systolic BPs acceptable at 156/65 post recent CVA. GERD: Continue PPI CKD Stage 3. recheck BMP in am. Depression: continue on sertraline, mirtazepine and gabapentin. CODE: DNR Pt reviewed with Dr Gautam Jaimes and he is in agreement with plan of care.
[2017-04-11] MEDS: Insulin Detemir 100 Units/ML 3 ML Pen SUBCUT SCH (11:26)
[2017-04-11] MEDS ORDERED: Insulin Detemir 100 Units/ML 3 ML Pen SUBCUT SCH (11:30)
[2017-04-11] MEDS ORDERED: Levofloxacin 500 MG Tab PO ONE (11:30)
[2017-04-11] MEDS: Nystatin Topical Powder 15 GM Bottle TOP SCH ×2 (11:38→20:46)
[2017-04-11] MEDS ORDERED: Enoxaparin 40 MG/0.4 ML Syringe SUBCUT SCH ×2 (11:45→21:00)
[2017-04-11] MEDS: Magnesium Hydroxide 400 MG/5 ML Susp 30 ML Cup PO PRN (13:51)
[2017-04-11] MEDS: risperiDONE 1 MG Tab PO SCH ×2 (13:51→20:50)
[2017-04-11] MEDS: Polyethylene Glycol 3350 Powder 17 GM Packet PO SCH (15:41)
[2017-04-11] MEDS ORDERED: Insulin Aspart 100 Units/ML 3 ML Pen SUBCUT ONE (17:38)
[2017-04-11] MEDS ORDERED: Warfarin 5 MG Tab PO ONE (18:00)
[2017-04-11] MEDS: Sertraline 50 MG Tab PO SCH (20:52)
[2017-04-11] MEDS: Simvastatin 20 MG Tab PO SCH (20:53)
[2017-04-11] MEDS: Mirtazapine 15 MG Tab PO SCH (20:53)
[2017-04-12] MEDS: Pantoprazole 40 MG Tab.CR PO SCH (06:35)
[2017-04-12 06:51] VITALS: BP 116/47
[2017-04-12] MEDS: Morphine 2 MG/ML Syringe IVPUSH PRN (08:17)
[2017-04-12] MEDS: Polyethylene Glycol 3350 Powder 17 GM Packet PO SCH (08:18)
[2017-04-12] MEDS: risperiDONE 1 MG Tab PO SCH (08:30)
[2017-04-12] MEDS: Clopidogrel 75 MG Tab PO SCH (08:33)
[2017-04-12] MEDS: Aspirin 81 MG Tab.EC PO SCH (09:53)
[2017-04-12] MEDS: Gabapentin 100 MG Cap PO SCH (09:53)
[2017-04-12] MEDS: Atenolol 25 MG Tab PO SCH (09:54)
[2017-04-12] MEDS: Lisinopril 5 MG Tab PO SCH (09:54)
[2017-04-12] MEDS: Acetaminophen 650 MG Tab.ER PO SCH (09:54)
[2017-04-12] MEDS: Lutein/Minerals/Vitamins A, C & E Tab PO SCH (09:54)
--- NOTE | 2017-04-12 10:45 | PCM.DCSUM1 ---
Discharge Summary - Hospital Course HPI Initial Comments: THis 87yo gentleman was sent back to swing bed here at [facility] after he had fallen here at [facility] and fractured his left hip (left intertrochanteric femur fracture)-- He returned s to us status post Left intermedullary fixation he had a had on 04/03/17 at [facility]. he was initially placed in swing bed status here at [facility] to rehabilitation for a left-sided CVA. Since arrival at [facility] late in the day on 04/07/17, nursing reports difficulty with pain control and confusion. After a conversation with family members, they were concerned about his tolerance of narcotic pain medications. He was receiving oxycodone 5mg every 6 hours as needed for pain and this was switched overnight to tramadol 50mg TID as needed for pain with overall improvement in pain control, though about 6-7 hours after a dose of tramadol last evening, he began complaining more of pain. Wednesday (Apr 11) he appearted to develop he reported feeling overall well, though frustrated about today having previously been the day when he was going to be discharged from his initial swing bed stay. He currently denies any pain when not moving and states that his pain is mainly associated with movement and putting too much weight on the left side while lying in bed. He states his left-sided upper extremity weakness is unchanged from prior to the femur fracture. The only other complaint he has this morning is having a decreased appetite in the last day and some difficulty swallowing yesterday, which he attributes to his mouth being dry. He does have some signs and sx of PE with elevated D-dimer and slightly increase of oxygen use. at this time treating more empirically with Lovenox and Coumadin.he has development hospital-acquired pneumonia and is placed on antibiotics. due to his need of increased monitoring and treatment it was decided to place him in acute care status today. Patient is agreement with plan - Discharge Data Discharge Date: 04/12/17 (achanged to Acute status. ) Discharge Disposition: DC/Tfer to Acute Hospital 02 Condition: Fair - Patient Summary/Data Consults: Consultations 04/07/17 18:10 Consult to Program Manager Environmental Planning [CONS] Routine Consult to In Shop Service Technician [CONS] Routine PT Evaluation and Treatment [CONS] Routine - Discharge Plan Home Medications: Home Meds Atenolol [Tenormin] 25 mg PO DAILY 11/14/13 [History] Sertraline [Zoloft] 100 mg PO BEDTIME 11/14/13 [History] Simvastatin [Zocor] 20 mg PO BEDTIME 11/14/13 [History] Lisinopril 5 mg PO DAILY 01/11/16 [History] Aspirin [Ecotrin] 81 mg PO DAILY 03/01/17 [History] Clopidogrel [Plavix] 75 mg PO DAILY 03/01/17 [History] Lutein/Minerals/Vit A,C & E [Ocuvite] 1 tab PO BID 03/02/17 [History] Acetaminophen [Tylenol] 650 mg PO Q8HR PRN 04/07/17 [History] Gabapentin [Neurontin] 100 mg PO DAILY 04/07/17 [History] Mirtazapine 15 mg PO BEDTIME 04/07/17 [History] Nystatin [Nystop] 1 applic TOP BID 04/07/17 [History] Pantoprazole Sodium [Protonix] 40 mg PO DAILY 04/07/17 [History] Sennosides/Docusate Sodium [Senna S Tablet] 1 tab PO BID 04/07/17 [History] oxyCODONE 5 mg PO Q4H PRN 04/07/17 [History] Acetaminophen [Tylenol Solution 160 MG/5 ML] 480 mg PO Q4H PRN 04/12/17 [History ] Enoxaparin Sodium 40 mg SQ BID 04/12/17 [History] Insulin Aspart [NovoLOG] See Protocol SUBCUT TIDMEALS 04/12/17 [History] Insulin Detemir [Levemir] 10 unit SUBCUT DAILY 04/12/17 [History] Levofloxacin/Dextrose 5%-Water [Levaquin in D5W 250 MG/50 ML] 250 mg IV DAILY [History] Levofloxacin/Dextrose 5%-Water [Levaquin in D5W 250 MG/50 ML] 250 mg IV Q48H [History] Levofloxacin/Dextrose 5%-Water [Levaquin in D5W 500 MG/100 ML] 500 mg IV Q48H [History] Lidocaine 5% [Lidoderm 5%] 700 mg TOP DAILY 04/12/17 [History] Magnesium Hydroxide [Milk of Magnesia] 30 ml PO DAILY PRN 04/12/17 [History] Metoclopramide [Reglan] 5 mg IVPUSH Q8H 04/12/17 [History] Morphine Sulfate/PF [Morphine 1 mg/2 ml Syringe] 1 mg IVPUSH Q6HR 04/12/17 [ History] Polyethylene Glycol [Polyox Wsr-301] 17 gm PO DAILY 04/12/17 [History] Warfarin Sodium 5 mg PO ONETIME 04/12/17 [History] risperiDONE [Risperdal] 0.5 mg PO TID 04/12/17 [History] traMADol HCl [Ultram] 50 mg PO Q4H PRN 04/12/17 [History] - Discharge Summary/Plan Comment DC Time >30 min.: Yes Discharge Summary/Plan Comment: final diagnosis Pneumonia: Status post left intertrochanteric fracture repair Clinical signs of pulmonary embolism adynamic ileus Anemia Dysphagia Diabetes type 2 chronic kidney disease CAD HTN GERD Depression - Patient Data Vitals - Most Recent: Last Vital Signs Temp 97.1 F 04/12/17 06:50 Pulse 64 04/12/17 06:50 Resp 20 04/12/17 06:50 BP 116/47 L 04/12/17 06:50 Pulse Ox 96 04/12/17 10:07 Weight - Most Recent: 190 lb 6.4 oz I&O - Last 24 hours: Intake & Output 04/11/17 04/12/17 04/12/17 22:59 06:59 14:59 Intake Total 480 10 Balance 480 10 Lab Results - Last 24 hrs: Laboratory Results - last 24 hr 04/11/17 04/11/17 04/11/17 Range/Units 10:20 10:20 11:45 WBC (5.0-10.0) 10^3/uL RBC (4.50-6.00) 10^6/uL Hgb (13.0-17.0) g/dL Hct (40.0-52.0) % MCV (82.0-92.0) fL MCH (27.0-31.0) pg MCHC (32.0-36.0) g/dL RDW (11.5-14.5) % Plt Count (150-300) 10^3/uL MPV (7.4-10.4) fL Neut % (Auto) (50.0-70.0) % Lymph % (Auto) (20.0-40.0) % [place] % (Auto) (2.0-8.0) % Eos % (Auto) (1.0-3.0) % Baso % (Auto) (0.0-1.0) % Neut # (Auto) (2.5-7.0) 10^3/uL Lymph # (Auto) (1.0-4.0) 10^3/uL [place] # (Auto) (0.1-0.8) 10^3/uL Eos # (Auto) (0.1-0.3) 10^3/uL Baso # (Auto) (0.0-0.1) 10^3/uL PT TNP INR 1.4 H (0.9-1.1) D-Dimer, Quantitative 3940 H (<400) ng/mL Sodium 134 L (136-145) mmol/L Potassium 4.3 (3.3-5.3) mmol/L Chloride 99 (98-115) mmol/L Carbon Dioxide 26.1 (21.0-32.0) mmol/L BUN 37 H (6-25) mg/dL Creatinine 1.20 H (0.51-1.17) mg/dL Est Cr Clr Drug Dosing 38.44 mL/min Estimated GFR (MDRD) 57 mL/min Glucose 182 H (70-110) mg/dL POC Glucose (74-106) mg/dl Calcium 8.3 L (8.7-10.3) mg/dL Total Bilirubin 0.7 (0.2-1.0) mg/dL AST 66 H (15-37) U/L ALT 34 (12-78) U/L Alkaline Phosphatase 172 H (46-116) IU/L Total Protein 6.6 (6.4-8.2) g/dL Albumin 1.91 L (3.00-4.80) g/dL 04/11/17 04/11/17 04/11/17 Range/Units 11:50 17:31 20:48 WBC (5.0-10.0) 10^3/uL RBC (4.50-6.00) 10^6/uL Hgb (13.0-17.0) g/dL Hct (40.0-52.0) % MCV (82.0-92.0) fL MCH (27.0-31.0) pg MCHC (32.0-36.0) g/dL RDW (11.5-14.5) % Plt Count (150-300) 10^3/uL MPV (7.4-10.4) fL Neut % (Auto) (50.0-70.0) % Lymph % (Auto) (20.0-40.0) % [place] % (Auto) (2.0-8.0) % Eos % (Auto) (1.0-3.0) % Baso % (Auto) (0.0-1.0) % Neut # (Auto) (2.5-7.0) 10^3/uL Lymph # (Auto) (1.0-4.0) 10^3/uL [place] # (Auto) (0.1-0.8) 10^3/uL Eos # (Auto) (0.1-0.3) 10^3/uL Baso # (Auto) (0.0-0.1) 10^3/uL PT INR (0.9-1.1) D-Dimer, Quantitative (<400) ng/mL Sodium (136-145) mmol/L Potassium (3.3-5.3) mmol/L Chloride (98-115) mmol/L Carbon Dioxide (21.0-32.0) mmol/L BUN (6-25) mg/dL Creatinine (0.51-1.17) mg/dL Est Cr Clr Drug Dosing mL/min Estimated GFR (MDRD) mL/min Glucose (70-110) mg/dL POC Glucose 180 H 321 H 221 H (74-106) mg/dl Calcium (8.7-10.3) mg/dL Total Bilirubin (0.2-1.0) mg/dL AST (15-37) U/L ALT (12-78) U/L Alkaline Phosphatase (46-116) IU/L Total Protein (6.4-8.2) g/dL Albumin (3.00-4.80) g/dL 04/12/17 04/12/17 04/12/17 Range/Units 06:32 08:00 08:00 WBC 19.9 H (5.0-10.0) 10^3/uL RBC 3.14 L (4.50-6.00) 10^6/uL Hgb 8.2 L (13.0-17.0) g/dL Hct 24.9 L (40.0-52.0) % MCV 79.3 L (82.0-92.0) fL MCH 26.3 L (27.0-31.0) pg MCHC 33.1 (32.0-36.0) g/dL RDW 14.6 H (11.5-14.5) % Plt Count 500 H (150-300) 10^3/uL MPV 7.4 (7.4-10.4) fL Neut % (Auto) 87.9 H (50.0-70.0) % Lymph % (Auto) 4.9 L (20.0-40.0) % [place] % (Auto) 5.9 (2.0-8.0) % Eos % (Auto) 1.3 (1.0-3.0) % Baso % (Auto) 0.0 (0.0-1.0) % Neut # (Auto) 17.4 H (2.5-7.0) 10^3/uL Lymph # (Auto) 1.0 (1.0-4.0) 10^3/uL [place] # (Auto) 1.2 H (0.1-0.8) 10^3/uL Eos # (Auto) 0.3 (0.1-0.3) 10^3/uL Baso # (Auto) 0.0 (0.0-0.1) 10^3/uL PT 20.4 H INR 1.9 H (0.9-1.1) D-Dimer, Quantitative (<400) ng/mL Sodium (136-145) mmol/L Potassium (3.3-5.3) mmol/L Chloride (98-115) mmol/L Carbon Dioxide (21.0-32.0) mmol/L BUN (6-25) mg/dL Creatinine (0.51-1.17) mg/dL Est Cr Clr Drug Dosing mL/min Estimated GFR (MDRD) mL/min Glucose (70-110) mg/dL POC Glucose 189 H (74-106) mg/dl Calcium (8.7-10.3) mg/dL Total Bilirubin (0.2-1.0) mg/dL AST (15-37) U/L ALT (12-78) U/L Alkaline Phosphatase (46-116) IU/L Total Protein (6.4-8.2) g/dL Albumin (3.00-4.80) g/dL 04/12/17 Range/Units 08:00 WBC (5.0-10.0) 10^3/uL RBC (4.50-6.00) 10^6/uL Hgb (13.0-17.0) g/dL Hct (40.0-52.0) % MCV (82.0-92.0) fL MCH (27.0-31.0) pg MCHC (32.0-36.0) g/dL RDW (11.5-14.5) % Plt Count (150-300) 10^3/uL MPV (7.4-10.4) fL Neut % (Auto) (50.0-70.0) % Lymph % (Auto) (20.0-40.0) % [place] % (Auto) (2.0-8.0) % Eos % (Auto) (1.0-3.0) % Baso % (Auto) (0.0-1.0) % Neut # (Auto) (2.5-7.0) 10^3/uL Lymph # (Auto) (1.0-4.0) 10^3/uL [place] # (Auto) (0.1-0.8) 10^3/uL Eos # (Auto) (0.1-0.3) 10^3/uL Baso # (Auto) (0.0-0.1) 10^3/uL PT INR (0.9-1.1) D-Dimer, Quantitative (<400) ng/mL Sodium 135 L (136-145) mmol/L Potassium 4.3 (3.3-5.3) mmol/L Chloride 100 (98-115) mmol/L Carbon Dioxide 28.0 (21.0-32.0) mmol/L BUN 50 H (6-25) mg/dL Creatinine 1.65 H (0.51-1.17) mg/dL Est Cr Clr Drug Dosing 27.95 mL/min Estimated GFR (MDRD) 40 mL/min Glucose 201 H (70-110) mg/dL POC Glucose (74-106) mg/dl Calcium 8.3 L (8.7-10.3) mg/dL Total Bilirubin (0.2-1.0) mg/dL AST (15-37) U/L ALT (12-78) U/L Alkaline Phosphatase (46-116) IU/L Total Protein (6.4-8.2) g/dL Albumin (3.00-4.80) g/dL BETTY Results - Last 24 hrs: Microbiology 04/08/17 15:30 Wound Culture - Final Hip, Left NO GROWTH AFTER 2 DAYS 04/09/17 11:10 Aerobic Blood Culture - Preliminary Blood - Venous - Lab Draw NO GROWTH AFTER 2 DAYS Anaerobic Blood Culture - Preliminary NO GROWTH AFTER 2 DAYS 04/09/17 10:55 Aerobic Blood Culture - Preliminary Blood - Venous NO GROWTH AFTER 2 DAYS Anaerobic Blood Culture - Preliminary NO GROWTH AFTER 2 DAYS Med Orders - Current: Current Medications Acetaminophen (Tylenol Solution 160 Mg/5 Ml) 480 mg PO Q4H PRN PRN Reason: Pain Last Admin: 04/10/17 11:27 Dose: 15 ml Acetaminophen (Tylenol Arthritis Pain) 650 mg PO TID ON LICENSE OF [facility] Last Admin: 04/12/17 09:54 Dose: Not Given Aspirin (Halfprin) 81 mg PO DAILY ON LICENSE OF [facility] Last Admin: 04/12/17 09:53 Dose: Not Given Atenolol (Tenormin) 25 mg PO DAILY ON LICENSE OF [facility] Last Admin: 04/12/17 09:54 Dose: Not Given Clopidogrel Bisulfate (Plavix) 75 mg PO DAILY ON LICENSE OF [facility] Last Admin: 04/12/17 08:33 Dose: Not Given Enoxaparin Sodium (Lovenox) 40 mg SUBCUT Q12H ON LICENSE OF [facility] Last Admin: 04/11/17 20:50 Dose: 40 mg Gabapentin (Neurontin) 100 mg PO DAILY ON LICENSE OF [facility] Last Admin: 04/12/17 09:53 Dose: Not Given Levofloxacin/Dextrose (Levaquin In D5w 250 Mg/50 Ml) 50 mls @ 50 mls/hr IV Q48H ON LICENSE OF [facility] Levofloxacin/Dextrose (Levaquin In D5w 500 Mg/100 Ml) 100 mls @ 100 mls/hr IV Q48H ON LICENSE OF [facility] Insulin Detemir (Levemir) 10 unit SUBCUT DAILY ON LICENSE OF [facility] Last Admin: 04/11/17 11:39 Dose: 10 units Lisinopril (Prinivil) 5 mg PO DAILY ON LICENSE OF [facility] Last Admin: 04/12/17 09:54 Dose: Not Given Magnesium Hydroxide (Milk Of Magnesia) 30 ml PO DAILY PRN PRN Reason: Constipation Last Admin: 04/11/17 13:51 Dose: 30 ml Mirtazapine (Remeron) 15 mg PO BEDTIME ON LICENSE OF [facility] Last Admin: 04/11/17 20:53 Dose: 15 mg Morphine Sulfate (Morphine) 1 mg IVPUSH Q6H PRN PRN Reason: Pain Last Admin: 04/12/17 08:17 Dose: 1 mg Multivitamins/Minerals (Ocuvite) 1 each PO BID ON LICENSE OF [facility] Last Admin: 04/12/17 09:54 Dose: Not Given Nystatin (Nystop) 0 gm TOP BID ON LICENSE OF [facility] Last Admin: 04/11/17 20:46 Dose: 1 applic Pantoprazole Sodium (Protonix) 40 mg PO DAILY@0700 ON LICENSE OF [facility] Last Admin: 04/12/17 06:35 Dose: Not Given Polyethylene Glycol (Miralax) 17 gm PO DAILY ON LICENSE OF [facility] Last Admin: 04/12/17 08:18 Dose: 17 gm Risperidone (Risperidal) 0.5 mg PO TID ON LICENSE OF [facility] Last Admin: 04/12/17 08:30 Dose: 0.5 mg Senna/Docusate Sodium (Senna Plus) 1 tab PO BID ON LICENSE OF [facility] Last Admin: 04/12/17 09:54 Dose: Not Given Sertraline HCl (Zoloft) 100 mg PO BEDTIME ON LICENSE OF [facility] Last Admin: 04/11/17 20:52 Dose: 100 mg Simvastatin (Zocor) 20 mg PO BEDTIME ON LICENSE OF [facility] Last Admin: 04/11/17 20:53 Dose: 20 mg Tramadol HCl (Ultram) 50 mg PO Q4H PRN PRN Reason: Pain Last Admin: 04/11/17 06:25 Dose: 50 mg Discontinued Medications Acetaminophen (Tylenol) 650 mg PO Q4H PRN PRN Reason: Pain (Mild 1-3)/fever Acetaminophen (Tylenol) 650 mg PO Q8HR PRN PRN Reason: Pain Last Admin: 04/08/17 08:43 Dose: 650 mg Acetaminophen (Tylenol Arthritis Pain) 650 mg PO TID PRN PRN Reason: Pain Last Admin: 04/10/17 20:55 Dose: 650 mg Ceftriaxone Sodium (Rocephin) 1 gm IVPUSH ONETIME ONE Stop: 04/09/17 10:46 Last Admin: 04/09/17 11:07 Dose: 1 gm Enoxaparin Sodium (Lovenox) 40 mg SUBCUT Q12H ON LICENSE OF [facility] Stop: 04/11/17 11:46 Last Admin: 04/11/17 11:39 Dose: 40 mg Flumazenil (Romazicon) 0.2 mg IVPUSH ONETIME ONE Stop: 04/09/17 10:32 Last Admin: 04/09/17 11:04 Dose: 0.2 mg Flumazenil (Romazicon) 0.2 mg IVPUSH ONETIME PRN PRN Reason: drowsy Stop: 04/09/17 12:00 Last Admin: 04/09/17 11:27 Dose: 0.2 mg Levofloxacin/Dextrose 250 mg/ (Premix) 50 mls @ 50 mls/hr IV Q24H ON LICENSE OF [facility] Insulin Aspart (Novolog) 4 unit SUBCUT ONETIME ONE Stop: 04/11/17 17:39 Last Admin: 04/11/17 17:59 Dose: 4 unit Insulin Detemir (Levemir) 20 unit SUBCUT DAILY ON LICENSE OF [facility] Last Admin: 04/11/17 11:26 Dose: Not Given Levofloxacin (Levaquin) 500 mg PO ONETIME ONE Stop: 04/11/17 11:31 Last Admin: 04/11/17 11:39 Dose: 500 mg Lorazepam (Ativan) 2 mg PO ONETIME PRN PRN Reason: Anxiety Last Admin: 04/08/17 20:42 Dose: 2 mg Lorazepam (Ativan) 0.5 mg PO ONETIME ONE Stop: 04/11/17 08:46 Last Admin: 04/11/17 08:58 Dose: 0.5 mg Morphine Sulfate (Morphine) 1 mg IVPUSH ONETIME ONE Stop: 04/10/17 15:23 Last Admin: 04/10/17 15:38 Dose: 1 mg Morphine Sulfate (Morphine) 1 mg IVPUSH ONETIME ONE Stop: 04/10/17 21:07 Last Admin: 04/10/17 21:20 Dose: 1 mg Morphine Sulfate (Morphine) Confirm Administered Dose 2 mg .ROUTE .STK-MED ONE Stop: 04/10/17 21:15 Last Admin: 04/10/17 21:31 Dose: Not Given Morphine Sulfate (Morphine) 1 mg IVPUSH Q6H PRN PRN Reason: Pain Stop: 04/11/17 09:30 Last Admin: 04/11/17 08:55 Dose: 1 mg Morphine Sulfate (Morphine) 1 mg IVPUSH ONETIME ONE Stop: 04/10/17 22:39 Last Admin: 04/10/17 22:38 Dose: 1 mg Oxycodone HCl (Oxycodone) Confirm Administered Dose 5 mg .ROUTE .STK-MED ONE Stop: 04/07/17 18:35 Last Admin: 04/07/17 18:44 Dose: 5 mg Oxycodone HCl (Oxycodone) 5 mg PO Q4H PRN PRN Reason: Pain Sertraline HCl (Zoloft) 50 mg PO BEDTIME ON LICENSE OF [facility] Last Admin: 04/07/17 20:53 Dose: 50 mg Tramadol HCl (Ultram) 50 mg PO TID PRN PRN Reason: Pain Last Admin: 04/08/17 05:43 Dose: 50 mg Tramadol HCl (Ultram) 50 mg PO Q6H MELY Last Admin: 04/09/17 05:42 Dose: 50 mg Tramadol HCl (Ultram) 50 mg PO BID PRN PRN Reason: Pain Last Admin: 04/10/17 21:26 Dose: 50 mg Warfarin Sodium (Coumadin) 5 mg PO ONETIME ONE Stop: 04/11/17 18:01 Last Admin: 04/11/17 17:42 Dose: 5 mg
[2017-04-12] MEDS: Nystatin Topical Powder 15 GM Bottle TOP SCH (11:18)
[2017-04-12] MEDS ORDERED: Levofloxacin/Dextrose 5%-Water 250 MG in Premix Bag 1 BAG IV SCH (11:30)
[2017-04-12] MEDS ORDERED: Metoclopramide 10 MG/2 ML SDV IVPUSH SCH (12:15)
[2017-04-12] MEDS ORDERED: Lidocaine 5% 700 MG Patch TOP SCH (12:30)
[2017-04-12] MEDS ORDERED: Acetaminophen Susp 160 MG/5 ML 120 ML Bottle PO SCH (12:30)
[2017-04-12] MEDS ORDERED: Piperacillin/Tazobactam 3.375 GM in Sodium Chloride 0.9% 50 ML IV SCH (12:30)
[2017-04-12] MEDS ORDERED: Insulin Aspart 100 Units/ML 3 ML Pen SUBCUT SCH (18:00)
[2017-04-13] MEDS ORDERED: Levofloxacin/Dextrose 5%-Water 100 ML IV SCH (09:00)
[2017-04-13] MEDS ORDERED: Levofloxacin/Dextrose 5%-Water 50 ML IV SCH (10:00)
== END 2017-04-12 11:31 | DRG 559 ==
LOC: KA.MS 13:45
PROVIDERS: ADMIT Family Medicine; ATTEND Family Medicine
DX: Z47.89 Encounter for other orthopedic aftercare (principal); J18.9 Pneumonia, unspecified organism; D64.9 Anemia, unspecified; Y95 Nosocomial condition; Z86.73 Personal history of transient ischemic attack (TIA), and cerebral infarction without residual deficits; I25.10 Atherosclerotic heart disease of native coronary artery without angina pectoris; I12.9 Hypertensive chronic kidney disease with stage 1 through stage 4 chronic kidney disease, or unspecified chronic kidney disease; N18.3 Chronic kidney disease, stage 3 (moderate); K21.9 Gastro-esophageal reflux disease without esophagitis; F32.9 Major depressive disorder, single episode, unspecified; E11.9 Type 2 diabetes mellitus without complications; Z79.4 Long term (current) use of insulin; Z66 Do not resuscitate; R79.1 Abnormal coagulation profile; R13.10 Dysphagia, unspecified; R41.0 Disorientation, unspecified; R52 Pain, unspecified; Z79.82 Long term (current) use of aspirin; Z79.899 Other long term (current) drug therapy
CPT/HCPCS: 36415; 36416; 51798; 71010; 74230; 80048; 80053; 81001; 82962; 85025; 85379; 85610; 87040; 87070; 97110-GP; 97162-GP; A9270-GY; J0696; J1650; J1815-GY; J2270; J3490

== ENCOUNTER 2017-04-12 10:44 | Inpatient (IN) | payer MEDICARE, OTHER ==
[2017-04-12] MEDS ORDERED: Ondansetron 4 MG/2 ML SDV IVPUSH PRN (11:31)
[2017-04-12] MEDS ORDERED: Sodium Chloride 0.9% 5 ML Syringe FLUSH PRN (11:31)
--- NOTE | 2017-04-12 11:45 | PCM.HP ---
H&P History of Present Illness - General Date of Service: 04/12/17 Admit Problem/Dx: Admission Diagnosis/Problem Admission Diagnosis/Problem Pneumonia Source of Information: Patient, Old Records, Provider, RN History Limitations: Reports: Altered Mental Status - History of Present Illness Initial Comments - Free Text/Narative: Mr Palm is a 87-year-old gentleman who was returned to us from [facility] after a left hip repair was performed. Patient sustained a left hip fracture here at [facility] and was transferred for repair. He is return to us for rehabilitation. the patient was initially admitted to [facility] for a CVA when he sustained a ground level fall resulting in a left intertrochanteric femur fracture. he is status post intermedullary fixation on 04/03/17. when he returned here at [facility] it was evident that the patient was having some dysphagia and a subsequent swallow evaluation showed she had extreme risk for aspiration. Mr. Palm has has some complications since arrival back here at [facility] including, anemia, dysphagia, bowel ileus, pain control measures, restlessness, clinical suspicion of possible pulmonary embolism, pneumonia (HCAP ) requiring IV antibiotics. patient had started complaining about having more difficulty swallowing pills and a sore swollen tongue a subsequent swallow evaluation was performed demonstrated the patient to have severe aspiration and high risk for aspiration pneumonia necessitating us to place him nothing by mouth status. it was decided to treat his bilateral infiltrates with IV antibiotics. He was initially treated emperically for possible pulmonary embolism with bridging of Lovenox and Coumadin however he had an elevated INR and this was held today. He was given Reglan for adynamic ileus. it was determined that the patient requires higher level of care so he was placed back into acute care status. - Related Data Allergies/Adverse Reactions: Allergies Allergy/AdvReac Type Severity Reaction Status Date / Time No Known Allergies Allergy Verified 04/07/17 14:12 Home Medications: Home Meds Atenolol [Tenormin] 25 mg PO DAILY 11/14/13 [History] Sertraline [Zoloft] 100 mg PO BEDTIME 11/14/13 [History] Simvastatin [Zocor] 20 mg PO BEDTIME 11/14/13 [History] Lisinopril 5 mg PO DAILY 01/11/16 [History] Aspirin [Ecotrin] 81 mg PO DAILY 03/01/17 [History] Clopidogrel [Plavix] 75 mg PO DAILY 03/01/17 [History] Lutein/Minerals/Vit A,C & E [Ocuvite] 1 tab PO BID 03/02/17 [History] Acetaminophen [Tylenol] 650 mg PO Q8HR PRN 04/07/17 [History] Gabapentin [Neurontin] 100 mg PO DAILY 04/07/17 [History] Mirtazapine 15 mg PO BEDTIME 04/07/17 [History] Nystatin [Nystop] 1 applic TOP BID 04/07/17 [History] Pantoprazole Sodium [Protonix] 40 mg PO DAILY 04/07/17 [History] Sennosides/Docusate Sodium [Senna S Tablet] 1 tab PO BID 04/07/17 [History] oxyCODONE 5 mg PO Q4H PRN 04/07/17 [History] Acetaminophen [Tylenol Solution 160 MG/5 ML] 480 mg PO Q4H PRN 04/12/17 [History ] Enoxaparin Sodium 40 mg SQ BID 04/12/17 [History] Insulin Aspart [NovoLOG] See Protocol SUBCUT TIDMEALS 04/12/17 [History] Insulin Detemir [Levemir] 10 unit SUBCUT DAILY 04/12/17 [History] Levofloxacin/Dextrose 5%-Water [Levaquin in D5W 250 MG/50 ML] 250 mg IV DAILY [History] Levofloxacin/Dextrose 5%-Water [Levaquin in D5W 250 MG/50 ML] 250 mg IV Q48H [History] Levofloxacin/Dextrose 5%-Water [Levaquin in D5W 500 MG/100 ML] 500 mg IV Q48H [History] Lidocaine 5% [Lidoderm 5%] 700 mg TOP DAILY 04/12/17 [History] Magnesium Hydroxide [Milk of Magnesia] 30 ml PO DAILY PRN 04/12/17 [History] Metoclopramide [Reglan] 5 mg IVPUSH Q8H 04/12/17 [History] Morphine Sulfate/PF [Morphine 1 mg/2 ml Syringe] 1 mg IVPUSH Q6HR 04/12/17 [ History] Polyethylene Glycol [Polyox Wsr-301] 17 gm PO DAILY 04/12/17 [History] Warfarin Sodium 5 mg PO ONETIME 04/12/17 [History] risperiDONE [Risperdal] 0.5 mg PO TID 04/12/17 [History] traMADol HCl [Ultram] 50 mg PO Q4H PRN 04/12/17 [History] Past Medical History HEENT History: Reports: Cataract, Impaired Vision Cardiovascular History: Reports: Bypass, CAD, High Cholesterol, Hypertension, Other (See Below) (Aortic stenosis, Carotid artery stenosis) Gastrointestinal History: Reports: Chronic Constipation Genitourinary History: Reports: Chronic Renal Insuffiency Musculoskeletal History: Reports: Fracture, Osteoarthritis, Other (See Below) Other Musculoskeletal History: Left Hip nailing Neurological History: Reports: CVA, TIA Psychiatric History: Reports: Depression Endocrine/Metabolic History: Reports: Diabetes, Type II - Past Surgical History HEENT Surgical History: Reports: Cataract Surgery, Tonsillectomy Cardiovascular Surgical History: Reports: Coronary Artery Bypass GI Surgical History: Reports: Appendectomy, Cholecystectomy Social & Family History - Family History Cardiac: Reports: CAD (father, brother) Oncologic: Reports: Other (See Below) (unknown cancer-father) - Tobacco Use Smoking Status *Q: Former Smoker Years of Tobacco use: 40 Used Tobacco, but Quit: Yes Month Tobacco Last Used: 1978 Second Hand Smoke Exposure: No - Alcohol Use Days Per Week of Alcohol Use: 0 - Recreational Drug Use Recreational Drug Use: No - Living Situation & Occupation Living situation: Reports: Occupation: Disabled H&P Review of Systems - Review of Systems: Review Of Systems: See Below General: Reports: Weakness. Denies: Fever Pulmonary: Reports: Shortness of Breath. Denies: Cough, Sputum, Hemoptysis Cardiovascular: Reports: Blood Pressure Problem. Denies: Chest Pain, Palpitations, Edema Gastrointestinal: Reports: Difficulty Swallowing. Denies: Abdominal Pain, Black Stool, Bloody Stool, Constipation, Diarrhea, Distension, Hematochezia, Nausea, Vomiting Genitourinary: Reports: Incontinence Musculoskeletal: Reports: Other (left hip pain) Skin: Reports: Pallor, Erythema, Wound (intact robbi left hip, bruising slightly around left hip more dependent ), Change in Color Psychiatric: Reports: Anxiety, Agitation. Denies: Confusion Neurological: Reports: Pre-Existing Deficit. Denies: Confusion, Dizziness, Headache, Numbness, Paresthesia Hematologic/Lymphatic: Reports: Anemia, Easy Bleeding, Easy Bruising Immunologic: Reports: No Symptoms Exam - Exam Exam: See Below - Vital Signs Weight: 190 lb 6.4 oz - Exam Quality Assessment: Supplemental Oxygen General: Alert, Oriented, Moderate Distress HEENT: No: Mucosa Moist & Jud (dry mucous membranes) Lungs: Clear to Auscultation, Normal Respiratory Effort Cardiovascular: Regular Rate, Regular Rhythm GI/Abdominal Exam: Normal Bowel Sounds, Soft, Non-Tender, No Organomegaly, No Distention, No Abnormal Bruit, No Mass, Pelvis Stable (Male) Exam: Deferred Rectal (Males) Exam: Deferred Back Exam: No: CVA Tenderness (L), CVA Tenderness (R) Extremities: No Pedal Edema Skin: Other (pallor) Neurological: Cranial Nerves Intact, Reflexes Equal Bilateral Neuro Extensive - Mental Status: Alert, Oriented x3 Neuro Extensive - Motor, Sensory, Reflexes: Normal Reflexes, Dysarthria, Abnormal Finger to Nose. No: Tongue Deviation (R), Receptive Aphasia, Expressive Aphasia, Total Aphasia, Facial palsy (L), Facial Palsy (R), Facial Palsy wo Forehead Psychiatric: Alert, Anxious - Patient Data Result Diagrams: 04/13/17 08:30 04/13/17 08:30 *Q Meaningful Use (ADM) - VTE *Q VTE Criteria *Q: - Stroke *Q Stroke Criteria *Q: - AMI *Q AMI Criteria *Q: Problem List Initiated/Reviewed/Updated: Yes Orders Last 24hrs: Active Orders 24 hr Category Date Time Status Patient Status [ADT] Routine ADT 04/12/17 11:31 Ordered Antiembolic Devices [RC] PER UNIT ROUTINE Care 04/12/17 11:35 Ordered Blood Glucose Check, Bedside [RC] QIDACANDBED Care 04/12/17 11:37 Active Blood Glucose Check, Bedside [RC] TIDAC Care 04/12/17 11:37 Ordered EKG Documentation Completion [RC] ASDIRECTED Care 04/12/17 11:35 Ordered Height and Weight [RC] UPON Care 04/12/17 11:31 Ordered Incentive Spirometry [RT Incentive Spirometry] [RC] Care 04/12/17 11:41 Ordered ASDIRECTED Intake and Output [RC] QSHIFT Care 04/12/17 11:33 Ordered May Shower [RC] ASDIRECTED Care 04/12/17 11:31 Ordered Oxygen Therapy [RC] PRN Care 04/12/17 11:31 Ordered Peripheral IV Care [RC] . DIRECTED Care 04/12/17 11:35 Ordered Up With Assistance [RC] ASDIRECTED Care 04/12/17 11:31 Ordered Up to Chair [RC] ASDIRECTED Care 04/12/17 11:31 Ordered Vital Signs [RC] Q4H Care 04/12/17 11:31 Ordered [place] [employer] Diet [DIET] Diet 04/12/17 Lunch Ordered BASIC METABOLIC PANEL,BMP [CHEM] AM Lab 04/13/17 05:11 Ordered C-REACTIVE PROTEIN [CHEM] AM Lab 04/13/17 05:11 Ordered CBC WITH AUTO DIFF [HEME] AM Lab 04/13/17 05:11 Ordered INR,PT,PROTHROMBIN TIME [COAG] AM Lab 04/13/17 06:00 Ordered Enoxaparin [Lovenox] Med 04/13/17 09:00 Ordered 85 mg SUBCUT DAILY Ondansetron [Zofran] Med 04/12/17 11:31 Ordered 4 mg IV Q4H PRN Sodium Chloride 0.9% [Syrex Flush] Med 04/12/17 11:31 Ordered 5 ml FLUSH Q8HR PRN Antiembolic Hose [OM.PC] Per Unit Routine Oth 04/12/17 11:33 Ordered Peripheral IV Insertion Adult [OM.PC] Routine Oth 04/12/17 11:31 Ordered Resuscitation Status Routine Resus Stat 04/12/17 11:31 Ordered EKG 12 Lead [EK] Routine Ther 04/12/17 11:31 Ordered Medication Orders Enoxaparin Sodium (Lovenox) 85 mg SUBCUT DAILY MELY Ondansetron HCl (Zofran) 4 mg IV Q4H PRN PRN Reason: Nausea/Vomiting Sodium Chloride (Syrex Flush) 5 ml FLUSH Q8HR PRN PRN Reason: Keep Vein Open Assessment/Plan Comment:: History of present illness Mr Palm is a 87-year-old gentleman who was returned to us from [facility] after a left hip repair was performed. Patient sustained a left hip fracture here at [facility] and was transferred for repair. He is return to us for rehabilitation. the patient was initially admitted to [facility] for a CVA when he sustained a ground level fall resulting in a left intertrochanteric femur fracture. he is status post intermedullary fixation on 04/03/17. when he returned here at [facility] it was evident that the patient was having some dysphagia and a subsequent swallow evaluation showed she had extreme risk for aspiration. Mr. Palm has has some complications since arrival back here at [facility] including, anemia, dysphagia, bowel ileus, pain control measures, restlessness, clinical suspicion of possible pulmonary embolism, pneumonia (HCAP ) requiring IV antibiotics. patient had started complaining about having more difficulty swallowing pills and a sore swollen tongue a subsequent swallow evaluation was performed demonstrated the patient to have severe aspiration and high risk for aspiration pneumonia necessitating us to place him nothing by mouth status. it was decided to treat his bilateral infiltrates with Zosyn and Levaquin however Zosyn was discontinued and the patient was placed on vancomycin. He was initially treated tympanically for possible pulmonary embolism with bridging of Lovenox and Coumadin however he had an elevated INR and this was held. He was given Reglan for adynamic ileus. CODE: DNR Impression/plan Pneumonia HCAP; Zosyn and Levaquin. aggressive incentive spirometer, Pulmonary embolism, clinically, will adjust Lovenox daily dosing due to renal, continue with Coumadin, monitor INR status with proper overlapping doses, continue Plavix. check EKG for cardiac strain, blood pressure and heart rate okay/adequate S/P Left intertrochanteric fracture sustained in ground level fall. S/P intermedullary nailing on 04/03/17. change Tylenol to elixir 1 g 3 times a day. Lidoderm patch. try to limit narcotic due to likely ileus. WBAT; Anemia, Post op: continue monitoring hemoglobin for any hemodynamic instability. we'll attempt iron as soon as ileus resolving. Hx of CVA: Some residual left sided weakness. Plavix, statin and ASA. now on lovenox and coumadin for possible PE. Dysphagia, swallow eval today. Diet thickened liquids. Diabetes mellitus type 2: Stable chronic medical conditions: CAD: S/P remote CABG X3. No Angina, hold oral meds for now. HTN: Continue lisinopril and atenolol. GERD: Continue PPI CKD Stage 3. renal dosing medications.recheck BMP in am. Depression: hold oral medications for now since quite dysphagia.
[2017-04-12] MEDS ORDERED: Piperacillin/Tazobactam 3.375 GM in Sodium Chloride 0.9% 50 ML IV SCH ×2 (12:30→21:00)
[2017-04-12] MEDS ORDERED: Metoclopramide 10 MG/2 ML SDV IVPUSH SCH ×3 (13:00→17:30)
[2017-04-12] MEDS: Enoxaparin 100 MG/1 ML Syringe SUBCUT SCH (13:33)
[2017-04-12] MEDS: Lidocaine 5% 700 MG Patch TOP SCH (13:34)
[2017-04-12] MEDS: Metoclopramide 10 MG/2 ML SDV IVPUSH SCH ×2 (13:56→20:48)
[2017-04-12] MEDS: Acetaminophen Susp 160 MG/5 ML 120 ML Bottle PO SCH ×2 (14:06→17:02)
[2017-04-12] MEDS ORDERED: Acetaminophen 325 MG Supp RECTAL PRN (16:42)
[2017-04-12] MEDS ORDERED: Lidocaine 5% 700 MG Patch TOP SCH (17:30)
[2017-04-12] MEDS ORDERED: Dextrose 5%-0.45% NaCl 1,000 ML IV SCH (17:45)
[2017-04-12] MEDS: Morphine 2 MG/ML Syringe IV PRN ×2 (18:23→23:13)
[2017-04-12] MEDS: Insulin Aspart 100 Units/ML 3 ML Pen SUBCUT SCH (18:33)
[2017-04-12] MEDS: Piperacillin/Tazobactam 3.375 GM in Sodium Chloride 0.9% 50 ML IV SCH (20:11)
[2017-04-12] MEDS: Nystatin Topical Powder 15 GM Bottle TOP SCH (20:49)
[2017-04-12] MEDS ORDERED: Non-Formulary Medication 1 Each (Sertraline [Zoloft] 100 MG) PO SCH (21:00)
[2017-04-12] MEDS: Acetaminophen 650 MG Supp RECTAL SCH (23:09)
[2017-04-13] MEDS: LORazepam 2 MG/ML SDV IVPUSH PRN ×3 (01:28→19:54)
[2017-04-13] MEDS: Piperacillin/Tazobactam 3.375 GM in Sodium Chloride 0.9% 50 ML IV SCH ×2 (02:05→08:11)
[2017-04-13] MEDS: Acetaminophen 650 MG Supp RECTAL SCH ×4 (04:06→22:42)
[2017-04-13] MEDS: Morphine 2 MG/ML Syringe IV PRN ×2 (04:09→12:04)
[2017-04-13] MEDS: Metoclopramide 10 MG/2 ML SDV IVPUSH SCH ×3 (06:12→21:47)
[2017-04-13] MEDS: Insulin Aspart 100 Units/ML 3 ML Pen SUBCUT SCH ×3 (08:20→18:00)
[2017-04-13] MEDS: Enoxaparin 100 MG/1 ML Syringe SUBCUT SCH (08:21)
[2017-04-13] MEDS ORDERED: Levofloxacin/Dextrose 5%-Water 100 ML IV SCH (09:00)
[2017-04-13] MEDS ORDERED: WATER IV SCH (09:00)
[2017-04-13] MEDS ORDERED: LEVOFLOXACIN IV SCH (09:00)
[2017-04-13] MEDS ORDERED: DEXTROSE IV SCH (09:00)
[2017-04-13] MEDS ORDERED: Levofloxacin/Dextrose 5%-Water 250 MG/50 ML Premix Bag IV SCH (09:00)
[2017-04-13] MEDS: Nystatin Topical Powder 15 GM Bottle TOP SCH ×2 (09:24→21:48)
[2017-04-13] MEDS: Lidocaine 5% 700 MG Patch TOP SCH (09:24)
[2017-04-13] MEDS ORDERED: Levofloxacin/Dextrose 5%-Water 50 ML IV SCH (10:00)
--- NOTE | 2017-04-13 11:10 | PCM.PN ---
- General Info Date of Service: 04/13/17 Functional Status: Reports: Pain Controlled. Denies: Tolerating Diet (Nothing by mouth due to significant swallowing dysphagia--aspiration risk significant) - Review of Systems General: Denies: Fever HEENT: Reports: Dysphasia Pulmonary: Denies: Shortness of Breath, Pleuritic Chest Pain, Cough, Wheezing Cardiovascular: Denies: Chest Pain, Palpitations Gastrointestinal: Reports: Difficulty Swallowing. Denies: Abdominal Pain, Diarrhea, Nausea Genitourinary: Reports: Incontinence Musculoskeletal: Reports: Joint Pain (Left hip) Skin: Reports: Bruising (Bruising left hip, abdomen) Neurological: Reports: Pre-Existing Deficit, Weakness. Denies: Confusion Psychiatric: Reports: Agitation. Denies: Confusion - Patient Data Vitals - Most Recent: Last Vital Signs Temp 97.6 F 04/13/17 09:12 Pulse 63 04/13/17 09:12 Resp 24 H 04/13/17 09:12 BP 96/38 L 04/13/17 09:12 Pulse Ox 88 L 04/13/17 09:12 Weight - Most Recent: 168 lb I&O - Last 24 Hours: Intake & Output 04/12/17 04/13/17 04/13/17 22:59 06:59 14:59 Intake Total 288 526 Output Total 150 Balance 288 376 Lab Results Last 24 Hours: Laboratory Results - last 24 hr 04/13/17 04/13/17 04/13/17 Range/Units 08:18 08:30 08:30 WBC 14.5 H (5.0-10.0) 10^3/uL RBC 3.69 L (4.50-6.00) 10^6/uL Hgb 6.2 L* (13.0-17.0) g/dL Hct 29.0 L (40.0-52.0) % MCV 78.6 L (82.0-92.0) fL MCH 16.9 L (27.0-31.0) pg MCHC 21.5 L (32.0-36.0) g/dL RDW 14.8 H (11.5-14.5) % Plt Count 643 H (150-300) 10^3/uL MPV 7.0 L (7.4-10.4) fL Neut % (Auto) 92.8 H (50.0-70.0) % Lymph % (Auto) 1.9 L (20.0-40.0) % Cooper % (Auto) 2.6 (2.0-8.0) % Eos % (Auto) 1.1 (1.0-3.0) % Baso % (Auto) 1.6 H (0.0-1.0) % Neut # (Auto) 13.4 H (2.5-7.0) 10^3/uL Lymph # (Auto) 0.3 L (1.0-4.0) 10^3/uL Cooper # (Auto) 0.4 (0.1-0.8) 10^3/uL Eos # (Auto) 0.2 (0.1-0.3) 10^3/uL Baso # (Auto) 0.2 H (0.0-0.1) 10^3/uL PT (8.9-11.4) SEC INR (0.9-1.1) Sodium 134 L (136-145) mmol/L Potassium 4.5 (3.3-5.3) mmol/L Chloride 98 (98-115) mmol/L Carbon Dioxide 27.5 (21.0-32.0) mmol/L BUN 59 H* (6-25) mg/dL Creatinine 1.98 H (0.51-1.17) mg/dL Est Cr Clr Drug Dosing 23.30 mL/min Estimated GFR (MDRD) 32 mL/min Glucose 282 H (70-110) mg/dL POC Glucose 285 H (74-106) mg/dl Calcium 8.0 L (8.7-10.3) mg/dL C-Reactive Protein 37.5 H (0.0-0.9) mg/dL 04/13/17 Range/Units 08:30 WBC (5.0-10.0) 10^3/uL RBC (4.50-6.00) 10^6/uL Hgb (13.0-17.0) g/dL Hct (40.0-52.0) % MCV (82.0-92.0) fL MCH (27.0-31.0) pg MCHC (32.0-36.0) g/dL RDW (11.5-14.5) % Plt Count (150-300) 10^3/uL MPV (7.4-10.4) fL Neut % (Auto) (50.0-70.0) % Lymph % (Auto) (20.0-40.0) % Cooper % (Auto) (2.0-8.0) % Eos % (Auto) (1.0-3.0) % Baso % (Auto) (0.0-1.0) % Neut # (Auto) (2.5-7.0) 10^3/uL Lymph # (Auto) (1.0-4.0) 10^3/uL Cooper # (Auto) (0.1-0.8) 10^3/uL Eos # (Auto) (0.1-0.3) 10^3/uL Baso # (Auto) (0.0-0.1) 10^3/uL PT 44.4 H (8.9-11.4) SEC INR 4.1 H* (0.9-1.1) Sodium (136-145) mmol/L Potassium (3.3-5.3) mmol/L Chloride (98-115) mmol/L Carbon Dioxide (21.0-32.0) mmol/L BUN (6-25) mg/dL Creatinine (0.51-1.17) mg/dL Est Cr Clr Drug Dosing mL/min Estimated GFR (MDRD) mL/min Glucose (70-110) mg/dL POC Glucose (74-106) mg/dl Calcium (8.7-10.3) mg/dL C-Reactive Protein (0.0-0.9) mg/dL Med Orders - Current: Current Medications Acetaminophen (Tylenol) 650 mg RECTAL Q6HR [facility] Last Admin: 04/13/17 04:06 Dose: 650 mg Enoxaparin Sodium (Lovenox) 85 mg SUBCUT DAILY [facility] Last Admin: 04/13/17 08:21 Dose: 85 mg Piperacillin Sod/Tazobactam (Sod 3.375 gm/ Sodium Chloride) 65 mls @ 130 mls/ hr IV Q6H [facility] Last Admin: 04/13/17 08:11 Dose: 130 mls/hr Dextrose/Sodium Chloride (Dextrose 5%-1/2 Ns) 1,000 mls @ 55 mls/hr IV ASDIRECTED [facility] Last Admin: 04/12/17 18:14 Dose: 55 mls/hr Levofloxacin/Dextrose (Levaquin In D5w 500 Mg/100 Ml) 100 mls @ 100 mls/hr IV Q48H [facility] Last Admin: 04/13/17 09:38 Dose: 100 mls/hr Levofloxacin/Dextrose (Levaquin In D5w 250 Mg/50 Ml) 50 mls @ 50 mls/hr IV Q48H [facility] Last Admin: 04/13/17 10:49 Dose: 50 mls/hr Insulin Aspart (Novolog) 0 unit SUBCUT TIDMEALS [facility] PRN Reason: Protocol Last Admin: 04/13/17 08:20 Dose: 6 units Lidocaine (Lidoderm 5%) 700 mg TOP DAILY [facility] Last Admin: 04/13/17 09:24 Dose: 700 mg Lorazepam (Ativan) 0.25 mg IVPUSH Q4H PRN PRN Reason: anxiety Last Admin: 04/13/17 01:28 Dose: 0.25 mg Metoclopramide HCl (Reglan) 5 mg IVPUSH Q8H [facility] Last Admin: 04/13/17 06:12 Dose: 5 mg Miscellaneous Information (Remove Patch) 1 ea TRDERM BEDTIME [facility] Last Admin: 04/12/17 20:50 Dose: 1 ea Morphine Sulfate (Morphine) 1 - 4 mg IV Q4H PRN PRN Reason: pain Last Admin: 04/13/17 04:09 Dose: 4 mg Nystatin (Nystop) 0 gm TOP BID [facility] Last Admin: 04/13/17 09:24 Dose: 1 applic Ondansetron HCl (Zofran) 4 mg IVPUSH Q4H PRN PRN Reason: Nausea/Vomiting Sodium Chloride (Syrex Flush) 5 ml FLUSH Q8HR PRN PRN Reason: Keep Vein Open Last Admin: 04/12/17 18:38 Dose: 5 ml Discontinued Medications Acetaminophen (Tylenol Solution 160 Mg/5 Ml) 512 mg PO Q4H [facility] Last Admin: 04/12/17 17:02 Dose: Not Given Acetaminophen (Tylenol) 325 - 650 mg RECTAL Q4H PRN PRN Reason: Pain Last Admin: 04/12/17 16:58 Dose: 650 mg Piperacillin Sod/Tazobactam (Sod 3.375 gm/ Sodium Chloride) 65 mls @ 130 mls/ hr IV Q6HR [facility] Last Admin: 04/12/17 13:50 Dose: 130 mls/hr Piperacillin Sod/Tazobactam (Sod 3.375 gm/ Sodium Chloride) 65 mls @ 130 mls/ hr IV Q6HR [facility] Metoclopramide HCl (Reglan) 5 mg IVPUSH Q8H [facility] Last Admin: 04/12/17 14:07 Dose: Not Given Metoclopramide HCl (Reglan) 5 mg IVPUSH Q8HR [facility] - Exam Quality Assessment: Supplemental Oxygen General: Alert, Oriented, Mild Distress Neck: Supple Lungs: Clear to Auscultation, Normal Respiratory Effort Cardiovascular: Regular Rate, Regular Rhythm Skin: Ecchymosis (Light ecchymosis around left hip incisional site and dependent ) Wound/Incisions: Healing Well. No: No Drainage Psy/Mental Status: Alert, Anxious - Problem List Review Problem List Initiated/Reviewed/Updated: Yes - My Orders Last 24 Hours: My Active Orders 04/12/17 11:31 Patient Status [ADT] Routine May Shower [RC] ASDIRECTED Oxygen Therapy [RC] .PRN Up With Assistance [RC] ASDIRECTED Up to Chair [RC] ASDIRECTED Vital Signs [RC] 0300,0700,1100,1500,1900,2300 Ondansetron [Zofran] 4 mg IVPUSH Q4H PRN Sodium Chloride 0.9% [Syrex Flush] 5 ml FLUSH Q8HR PRN Peripheral IV Insertion Adult [OM.PC] Routine Resuscitation Status Routine EKG 12 Lead [EK] Routine 04/12/17 11:33 Intake and Output [RC] 0600,1400,2200 Antiembolic Hose [OM.PC] Per Unit Routine 04/12/17 11:35 Antiembolic Devices [RC] 0900,2200 EKG Documentation Completion [RC] ASDIRECTED 04/12/17 11:41 Incentive Spirometry [RT Incentive Spirometry] [RC] ASDIRECTED 04/12/17 12:30 Enoxaparin [Lovenox] 85 mg SUBCUT DAILY 04/12/17 13:00 Lidocaine 5% [Lidoderm 5%] 700 mg TOP DAILY 04/12/17 13:45 Metoclopramide [Reglan] 5 mg IVPUSH Q8H 04/12/17 17:45 Dextrose 5%-0.45% NaCl [Dextrose 5%-1/2 NS] 1,000 ml IV ASDIRECTED 04/12/17 17:47 Accu Check [Blood Glucose Check, Bedside] [RC] 0700,1100,1700 04/12/17 18:00 Insulin Aspart [NovoLOG] See Protocol SUBCUT TIDMEALS 04/12/17 18:05 Morphine 1 - 4 mg IV Q4H PRN 04/12/17 18:06 LORazepam [Ativan] 0.25 mg IVPUSH Q4H PRN 04/12/17 20:00 Piperacillin/Tazobactam [Zosyn] 3.375 gm Sodium Chloride 0.9% [Normal Saline] 50 ml IV Q6H 04/12/17 21:00 Nystatin [Nystop] 0 gm TOP BID Remove Patch 1 ea TRDERM BEDTIME 04/12/17 23:00 Acetaminophen [Tylenol] 650 mg RECTAL Q6HR 04/12/17 Dinner NPO Now [Nothing per Oral Now Diet] [DIET] 04/13/17 09:00 Levofloxacin/Dextrose 5%-Water [Levaquin in D5W 500 MG/100 ML] 100 ml IV Q48H 04/13/17 10:00 Levofloxacin/Dextrose 5%-Water [Levaquin in D5W 250 MG/50 ML] 50 ml IV Q48H Transfuse Red Blood Cells [COMM] Urgent 04/13/17 10:19 RED BLOOD CELLS LP [BBK] Routine TYPE AND SCREEN [BBK] Routine - Plan Plan:: CODE: DNR Impression/plan Anemia, acute, 2 g drop with corresponding hematocrit, likely blood loss, questionable source blood transfusion today, change to normal saline at 100 mL per hour. Due to's some hemodynamic instability will give saline bolus 250 mL 1 now. Dysphagia, significant. Nothing by mouth for now living will states no long- term feeding tube. IV fluids. Sepsis, qSOFA 2/3. Fluid resuscitation, add vancomycin, d/c Zoysn, Lactic acid level pending Pneumonia HCAP; Pending definitive treatment however we'll add Vancmycin-- pharmacy to dose. Reactive thrombocytosis, likely infectious related, continue with antibiotics, add vancomycin Renal failure, acute on chronic, likely effective pre-renal due to low MAP; however cannot rule out ATN due to possible GI bleed Pulmonary embolism, clinically, hypercoagulation, holding anticoagulants. holding Coumadin to elevated INR Coumadin, S/P Left intertrochanteric fracture sustained in ground level fall. S/P intermedullary nailing on 04/03/17. change Tylenol to elixir 1 g 3 times a day. Lidoderm patch. try to limit narcotic due to likely ileus. WBAT; Ileus, adynamic, nothing by mouth now. Reglan IV Hx of CVA: Some residual left sided weakness. Plavix, statin and ASA. Holding aspirin, Lovenox and Coumadin Diabetes mellitus type 2: Nothing by mouth status, Accu-Cheks ordered sliding scale Stable chronic medical conditions: CAD: S/P remote CABG X3. No Angina, holding aspirin, beta blockers and statin History of. Holding antihypertensives due to hemodynamic instability GERD: Continue PPI CKD Stage 3. Depression: Stable, hold oral medications. Overall plan today, blood transfusion, resuscitative efforts with isotonic saline. Add vancomycin, discontinue Zosyn, Long discussion with family they agree with plan. Patient in serious condition
[2017-04-13] MEDS: Sodium Chloride 0.9% 1,000 ML IV SCH (11:45)
[2017-04-13] MEDS ORDERED: Sodium Chloride 0.9% 250 ML IV ONE (12:50)
[2017-04-13] MEDS ORDERED: Piperacillin/Tazobactam/Dext 50 ML IV SCH ×2 (14:00)
[2017-04-13] MEDS ORDERED: LORazepam 2 MG/ML SDV IVPUSH ONE (14:25)
[2017-04-13] MEDS: Morphine 4 MG/ML Syringe IV PRN ×2 (16:29→22:15)
[2017-04-13] MEDS ORDERED: Saliva Substitute Oral Spray 120 ML Bottle MUCMEM PRN (19:52)
[2017-04-13 22:42] VITALS: BP 140/60
[2017-04-14] MEDS: LORazepam 2 MG/ML SDV IVPUSH PRN ×10 (01:49→21:08)
[2017-04-14] MEDS: Sodium Chloride 0.9% 1,000 ML IV SCH ×2 (01:50→13:17)
[2017-04-14] MEDS: Morphine 4 MG/ML Syringe IV PRN ×5 (01:55→17:30)
[2017-04-14] MEDS: Acetaminophen 650 MG Supp RECTAL SCH ×3 (04:58→16:40)
[2017-04-14] MEDS: Metoclopramide 10 MG/2 ML SDV IVPUSH SCH ×3 (05:58→21:08)
--- NOTE | 2017-04-14 10:00 | PCM.PN ---
- General Info Date of Service: 04/14/17 Subjective Update: patient sedated this morning, unable to complete full review of systems Functional Status: Reports: New Symptoms (patient had a very restless night last night according to family and nursing staff). Denies: Pain Controlled, Tolerating Diet, Ambulating, Incentive Spirometry - Review of Systems General: Denies: Fever HEENT: Reports: Dysphasia (dysphagia according to swallow evaluation) Pulmonary: Reports: Shortness of Breath, Cough (cough according to nursing staff early this morning) Genitourinary: Reports: Incontinence Psychiatric: Reports: Agitation (she got quite agitated most of night,) - Patient Data Vitals - Most Recent: Last Vital Signs Temp 95.3 F L 04/13/17 22:15 Pulse 74 04/13/17 22:15 Resp 24 H 04/13/17 22:15 BP 140/60 04/13/17 22:15 Pulse Ox 74 L 04/14/17 06:15 Weight - Most Recent: 168 lb I&O - Last 24 Hours: Intake & Output 04/13/17 04/14/17 04/14/17 22:59 06:59 14:59 Intake Total 1387 745 Output Total 150 Balance 1387 595 Lab Results Last 24 Hours: Laboratory Results - last 24 hr 04/13/17 04/13/17 04/13/17 Range/Units 08:15 08:30 08:30 Sodium 134 L (136-145) mmol/L Potassium 4.5 (3.3-5.3) mmol/L Chloride 98 (98-115) mmol/L Carbon Dioxide 27.5 (21.0-32.0) mmol/L BUN 59 H* (6-25) mg/dL Creatinine 1.98 H (0.51-1.17) mg/dL Est Cr Clr Drug Dosing 23.30 mL/min Estimated GFR (MDRD) 32 mL/min Glucose 282 H (70-110) mg/dL POC Glucose (74-106) mg/dl Lactic Acid 1.4 (0.4-2.0) mmol/L Calcium 8.0 L (8.7-10.3) mg/dL C-Reactive Protein 37.5 H (0.0-0.9) mg/dL Blood Type O POSITIVE Gel Antibody Screen Negative Crossmatch See Detail 04/13/17 04/13/17 Range/Units 11:49 18:13 Sodium (136-145) mmol/L Potassium (3.3-5.3) mmol/L Chloride (98-115) mmol/L Carbon Dioxide (21.0-32.0) mmol/L BUN (6-25) mg/dL Creatinine (0.51-1.17) mg/dL Est Cr Clr Drug Dosing mL/min Estimated GFR (MDRD) mL/min Glucose (70-110) mg/dL POC Glucose 254 H 177 H (74-106) mg/dl Lactic Acid (0.4-2.0) mmol/L Calcium (8.7-10.3) mg/dL C-Reactive Protein (0.0-0.9) mg/dL Blood Type Gel Antibody Screen Crossmatch Med Orders - Current: Current Medications Acetaminophen (Tylenol) 650 mg RECTAL Q6HR [facility] Last Admin: 04/14/17 04:58 Dose: Not Given Enoxaparin Sodium (Lovenox) 85 mg SUBCUT DAILY [facility] Last Admin: 04/13/17 08:21 Dose: 85 mg Levofloxacin/Dextrose (Levaquin In D5w 500 Mg/100 Ml) 100 mls @ 100 mls/hr IV Q48H [facility] Last Admin: 04/13/17 09:38 Dose: 100 mls/hr Levofloxacin/Dextrose (Levaquin In D5w 250 Mg/50 Ml) 50 mls @ 50 mls/hr IV Q48H [facility] Last Admin: 04/13/17 10:49 Dose: 50 mls/hr Sodium Chloride (Normal Saline) 1,000 mls @ 100 mls/hr IV ASDIRECTED [facility] Last Admin: 04/14/17 01:50 Dose: 100 mls/hr Vancomycin HCl 1 gm/ Sodium (Chloride) 270 mls @ 180 mls/hr IV Q48H [facility] Last Admin: 04/13/17 17:24 Dose: 180 mls/hr Insulin Aspart (Novolog) 0 unit SUBCUT TIDMEALS [facility] PRN Reason: Protocol Last Admin: 04/13/17 11:51 Dose: 6 units Lidocaine (Lidoderm 5%) 700 mg TOP DAILY [facility] Last Admin: 04/13/17 09:24 Dose: 700 mg Lorazepam (Ativan) 1 mg IVPUSH Q3H PRN PRN Reason: Anxiety Last Admin: 04/14/17 08:33 Dose: 1 mg Metoclopramide HCl (Reglan) 5 mg IVPUSH Q8H [facility] Last Admin: 04/14/17 05:58 Dose: 5 mg Miscellaneous Information (Remove Patch) 1 ea TRDERM BEDTIME [facility] Last Admin: 04/13/17 21:54 Dose: 1 ea Morphine Sulfate (Morphine) 1 - 4 mg IV Q4H PRN PRN Reason: pain Last Admin: 04/14/17 05:59 Dose: 4 mg Nystatin (Nystop) 0 gm TOP BID [facility] Last Admin: 04/13/17 21:48 Dose: 1 applic Ondansetron HCl (Zofran) 4 mg IVPUSH Q4H PRN PRN Reason: Nausea/Vomiting Saliva Substitute (Herbie-Stir Oral [place]) 0 ml MUCMEM Q1H PRN PRN Reason: dry mouth Sodium Chloride (Syrex Flush) 5 ml FLUSH Q8HR PRN PRN Reason: Keep Vein Open Last Admin: 04/12/17 18:38 Dose: 5 ml Vancomycin HCl (Pharmacy To Dose - Vancomycin) 1 dose .XX ASDIRECTED [facility] Discontinued Medications Acetaminophen (Tylenol Solution 160 Mg/5 Ml) 512 mg PO Q4H [facility] Last Admin: 04/12/17 17:02 Dose: Not Given Acetaminophen (Tylenol) 325 - 650 mg RECTAL Q4H PRN PRN Reason: Pain Last Admin: 04/12/17 16:58 Dose: 650 mg Piperacillin Sod/Tazobactam (Sod 3.375 gm/ Sodium Chloride) 65 mls @ 130 mls/ hr IV Q6HR [facility] Last Admin: 04/12/17 13:50 Dose: 130 mls/hr Piperacillin Sod/Tazobactam (Sod 3.375 gm/ Sodium Chloride) 65 mls @ 130 mls/ hr IV Q6HR [facility] Piperacillin Sod/Tazobactam (Sod 3.375 gm/ Sodium Chloride) 65 mls @ 130 mls/ hr IV Q6H [facility] Last Admin: 04/13/17 08:11 Dose: 130 mls/hr Dextrose/Sodium Chloride (Dextrose 5%-1/2 Ns) 1,000 mls @ 55 mls/hr IV ASDIRECTED [facility] Last Admin: 04/12/17 18:14 Dose: 55 mls/hr Piperacillin/Tazobactam/Dextrose (Zosyn In Dextrose Iso-Osmotic 3.375 Gm) 50 mls @ 100 mls/hr IV Q6H [facility] Sodium Chloride (Normal Saline) 250 mls @ 999 mls/hr IV .BOLUS ONE Stop: 04/13/17 13:05 Last Admin: 04/13/17 12:30 Dose: 999 mls/hr Lorazepam (Ativan) 0.25 mg IVPUSH Q4H PRN PRN Reason: anxiety Last Admin: 04/13/17 12:01 Dose: 0.25 mg Lorazepam (Ativan) 0.25 mg IVPUSH ONETIME ONE Stop: 04/13/17 14:26 Last Admin: 04/13/17 14:35 Dose: 0.25 mg Lorazepam (Ativan) 0.5 - 1 mg IVPUSH Q6H PRN PRN Reason: Agitation Last Admin: 04/14/17 01:49 Dose: 1 mg Metoclopramide HCl (Reglan) 5 mg IVPUSH Q8H [facility] Last Admin: 04/12/17 14:07 Dose: Not Given Metoclopramide HCl (Reglan) 5 mg IVPUSH Q8HR [facility] Morphine Sulfate (Morphine) 1 - 4 mg IV Q4H PRN PRN Reason: pain Last Admin: 04/13/17 12:04 Dose: 4 mg - Exam Quality Assessment: Supplemental Oxygen (patient requiring 10 L of oxygen, O2 saturations upper 80s now however 74% this morning was registered) General: Moderate Distress. No: Alert, Oriented Neck: Supple Lungs: Rhonchi Cardiovascular: Regular Rate, Regular Rhythm Extremities: Pedal Edema Psy/Mental Status: Anxious. No: Alert - Problem List Review Problem List Initiated/Reviewed/Updated: Yes - My Orders Last 24 Hours: My Active Orders 04/13/17 09:00 Levofloxacin/Dextrose 5%-Water [Levaquin in D5W 500 MG/100 ML] 100 ml IV Q48H 04/13/17 10:00 Levofloxacin/Dextrose 5%-Water [Levaquin in D5W 250 MG/50 ML] 50 ml IV Q48H Transfuse Red Blood Cells [COMM] Urgent 04/13/17 11:15 Sodium Chloride 0.9% [Normal Saline] 1,000 ml IV ASDIRECTED 04/13/17 11:51 Transfuse Red Blood Cells [COMM] Routine 04/13/17 12:00 Vancomycin Pharmacy to Dose [Pharmacy to Dose - Vancomycin] 1 dose .XX ASDIRECTED 04/13/17 16:00 Morphine 1 - 4 mg IV Q4H PRN 04/13/17 17:00 Vancomycin 1 gm Sodium Chloride 0.9% [Normal Saline] 250 ml IV Q48H 04/14/17 08:28 BMP [BASIC METABOLIC PANEL,BMP] [CHEM] Routine 04/14/17 08:29 INR,PT,PROTHROMBIN TIME [COAG] Routine - Plan Plan:: history of present illness this 87-year-old gentleman was returned to us from [facility] after a left hip repair was performed. Patient sustained a left hip fracture here at [facility] and was transferred for repair. He is return to us for rehabilitation. the patient was initially admitted to [facility] for a CVA when he sustained a ground level fall resulting in a left intertrochanteric femur fracture. he is status post intermedullary fixation on 04/03/17. when he returned here at [facility] it was evident that the patient was having some dysphagia and a subsequent swallow evaluation showed she had extreme risk for aspiration. Mr. Palm has has some complications since arrival back here at [facility] including, anemia, dysphagia, bowel ileus, pain control measures, restlessness, clinical suspicion of possible pulmonary embolism, pneumonia (HCAP) requiring IV antibiotics. Chest x-ray demonstrates interstitial infiltrates however cannot rule out ARDS or hemorrhage CODE: DNR update today, she had significant restlessness and anxiety last night requiring increased doses of Ativan. Impression/plan Organic brain syndrome, poor prognosis Anemia, acute, 2 g drop with corresponding hematocrit, yesterday receivedreceived 2 units of packed red blood cells yesterday. Repeat hemoglobin pending. questionable source mean arterial pressure much improved. Dehydration, exacerbated by nothing by mouth status, infection, insensible loss , rising BUN/creatinine ratio, will bolus today and keep saline rate at 100 mL per hour Dysphagia, significant aspiration risk. Nothing by mouth for now. family refusing PEG or NG tube feeding. Pneumonia HCAP; family agrees to continue IV antibiotics--for now Reactive thrombocytosis, likely infectious related, continue with antibiotics, Renal failure, acute on chronic, likely effective pre-renal, however cannot rule out ATN due to possible GI bleed. medication dosing per renal, IV fluids given with bolus Pulmonary embolism, clinically, hypercoagulation, holding anticoagulants. holding Coumadin due to elevated INR Coumadin, S/P Left intertrochanteric fracture sustained in ground level fall. S/P intermedullary nailing on 04/03/17. change Tylenol to elixir 1 g 3 times a day. Lidoderm patch. try to limit narcotic due to likely ileus. WBAT--however patient in serious critical condition. Physical therapy consulted to hold treatment for now.; Ileus, adynamic, nothing by mouth now. Reglan IV Hx of CVA: Some residual left sided weakness. holding oral medications. Holding Lovenox Coumadin and aspirin. Diabetes mellitus type 2: Nothing by mouth status, Accu-Cheks ordered sliding scale other chronic medical conditions include CAD: S/P remote CABG X3. No Angina, holding aspirin, beta blockers and statin History of hypertension, GERD: Continue PPI IV. CKD Stage 3. Depression: Overall plan today, long discussion with family, pointing towards more comfort cares however at this time they would agreed to IV blood draws to assess infection and hemoglobin and electrolytes. fentanyl patch today to help avoid roller coaster effect, fluid bolus today. continue IV antibiotics for now. Patient in serious condition and with family refusing nutritional support likely terminal, consider comfort care measures this afternoon only.
[2017-04-14] MEDS ORDERED: Sodium Chloride 0.9% 300 ML IV ONE (10:34)
[2017-04-14] MEDS ORDERED: Sodium Chloride 0.9% 500 ML IV ONE (10:50)
[2017-04-14] MEDS: Nystatin Topical Powder 15 GM Bottle TOP SCH ×2 (10:57→20:21)
[2017-04-14] MEDS ORDERED: fentaNYL 12 MCG/HR Transdermal Patch TRDERM SCH (11:00)
[2017-04-14] MEDS: Insulin Aspart 100 Units/ML 3 ML Pen SUBCUT SCH ×3 (12:03→17:41)
[2017-04-14] MEDS: Lidocaine 5% 700 MG Patch TOP SCH (12:14)
[2017-04-14] MEDS ORDERED: Sodium Chloride 0.9% 1,000 ML IV SCH (15:30)
[2017-04-14] MEDS: Morphine 2 MG/ML Syringe IVPUSH PRN ×3 (19:15→21:08)
--- NOTE | 2017-04-15 10:14 | PCM.DCSUM1 ---
Discharge Summary - Hospital Course Brief History: Mr Palm was a 87-year-old gentleman who was returned to [facility] from [facility] after a left hip repair was performed. Patient sustained a left hip fracture here at [facility] when he crawled out of bed very early in the morning and sustained a left hip fracture. He will return to us after a successful hip repair for rehabilitation. Mr Palm was status post intermedullary fixation on 04/03/17. When he returned here at [facility] it was evident that the patient was having some significant dysphagia and a subsequent swallow evaluation showed she had extreme risk for aspiration and it was recommended that he be on strict nothing by mouth status. Soon upon arrival he had some developing complications including, anemia, dysphagia, bowel ileus, signs and symptoms of organic brain syndrome, clinical signs and symptoms of pulmonary embolism, pneumonia (HCAP) requiring IV antibiotics. He had started complaining about having more difficulty swallowing pills and a sore swollen tongue a subsequent swallow evaluation was performed demonstrated the patient to have severe aspiration and high risk for aspiration pneumonia necessitating us to place him nothing by mouth status. Family agreed to treat his bilateral infiltrates with IV antibiotics. The decision was made to treat for possible pulmonary embolism with anticoagulation medicine--owever he had an elevated INR and this was held. He was given Reglan for ileus. He was placed into acute care status do to a higher level of needs. - Discharge Data Discharge Date: 04/14/17 Discharge Disposition: 20 Condition: - Patient Summary/Data Complications: See hospital course for details. Hospital Course: Mr Palm was a 87-year-old gentleman who was returned to [facility] from [facility] after a left hip repair was performed. Patient sustained a left hip fracture here at [facility] when he crawled out of bed very early in the morning and sustained a left hip fracture. He will return to us after a successful hip repair for rehabilitation. Mr Palm was status post intermedullary fixation on 04/03/17. When he returned here at [facility] it was evident that the patient was having some significant dysphagia and a subsequent swallow evaluation showed she had extreme risk for aspiration and it was recommended that he be on strict nothing by mouth status. Soon upon arrival he had some developing complications including, anemia, dysphagia, bowel ileus, signs and symptoms of organic brain syndrome, clinical signs and symptoms of pulmonary embolism, pneumonia (HCAP) requiring IV antibiotics. He had started complaining about having more difficulty swallowing pills and a sore swollen tongue a subsequent swallow evaluation was performed demonstrated the patient to have severe aspiration and high risk for aspiration pneumonia necessitating us to place him nothing by mouth status. Family agreed to treat his bilateral infiltrates with IV antibiotics. The decision was made to treat for possible pulmonary embolism with anticoagulation medicine--however he had an elevated INR and this was held. He was given Reglan for ileus. He was placed into acute care status do to a higher level of needs then eventually and comfort care He had a complicated course history since arrival from [place]. The patient was experiencing higher oxygen requirements likely due to pulmonary embolism and conconmitent pneumonia. He was placed on IV antibiotics along with Zosyn and Levaquin and eventually vancomycin was added. His INR was elevated so we held all anticoagulation. He had no active bleeding source however did require 2 units of packed red blood cells due to a low hemoglobin. A PEG tube/artificial nutrition was discussed extensively with the family however they opted to forego this as the patient's living will status specifically he did not desire this, and at one point he was verbalizing he did not desire this also. He was given IV saline boluses and ongoing maintenance fluids to help correct his renal failure. He had reactive thrombocytosis likely due to infectious process such as pneumonia. He was given IV motility drugs to help improve his ileus. Patient did become quite restless due to his organic brain syndrome requiring increasing doses of anxiolytics and pain control measures--although the patient was placed in comfort care measures status as his was expected Although the family did desire to treat with IV antibiotics it became evident that his leukocytosis was increasing and the patient's survival was very much in doubt and all comfort measures were taken. Comfort measures including no more lab draws discontinue IV fluids and all antibiotics as the patient's health status quickly declined. Patient peacefully in front of family members. - Discharge Plan Home Medications: Home Meds Atenolol [Tenormin] 25 mg PO DAILY 11/14/13 [History] Sertraline [Zoloft] 100 mg PO BEDTIME 11/14/13 [History] Simvastatin [Zocor] 20 mg PO BEDTIME 11/14/13 [History] Lisinopril 5 mg PO DAILY 01/11/16 [History] Aspirin [Ecotrin] 81 mg PO DAILY 03/01/17 [History] Clopidogrel [Plavix] 75 mg PO DAILY 03/01/17 [History] Lutein/Minerals/Vit A,C & E [Ocuvite] 1 tab PO BID 03/02/17 [History] Acetaminophen [Tylenol] 650 mg PO Q8HR PRN 04/07/17 [History] Gabapentin [Neurontin] 100 mg PO DAILY 04/07/17 [History] Mirtazapine 15 mg PO BEDTIME 04/07/17 [History] Nystatin [Nystop] 1 applic TOP BID 04/07/17 [History] Pantoprazole Sodium [Protonix] 40 mg PO DAILY 04/07/17 [History] Sennosides/Docusate Sodium [Senna S Tablet] 1 tab PO BID 04/07/17 [History] oxyCODONE 5 mg PO Q4H PRN 04/07/17 [History] Acetaminophen [Tylenol Solution 160 MG/5 ML] 480 mg PO Q4H PRN 04/12/17 [History ] Enoxaparin Sodium 40 mg SQ BID 04/12/17 [History] Insulin Aspart [NovoLOG] See Protocol SUBCUT TIDMEALS 04/12/17 [History] Insulin Detemir [Levemir] 10 unit SUBCUT DAILY 04/12/17 [History] Levofloxacin/Dextrose 5%-Water [Levaquin in D5W 250 MG/50 ML] 250 mg IV DAILY [History] Levofloxacin/Dextrose 5%-Water [Levaquin in D5W 250 MG/50 ML] 250 mg IV Q48H [History] Levofloxacin/Dextrose 5%-Water [Levaquin in D5W 500 MG/100 ML] 500 mg IV Q48H [History] Lidocaine 5% [Lidoderm 5%] 700 mg TOP DAILY 04/12/17 [History] Magnesium Hydroxide [Milk of Magnesia] 30 ml PO DAILY PRN 04/12/17 [History] Metoclopramide [Reglan] 5 mg IVPUSH Q8H 04/12/17 [History] Morphine Sulfate/PF [Morphine 1 mg/2 ml Syringe] 1 mg IVPUSH Q6HR 04/12/17 [ History] Polyethylene Glycol [Polyox Wsr-301] 17 gm PO DAILY 04/12/17 [History] Warfarin Sodium 5 mg PO ONETIME 04/12/17 [History] risperiDONE [Risperdal] 0.5 mg PO TID 04/12/17 [History] traMADol HCl [Ultram] 50 mg PO Q4H PRN 04/12/17 [History] - Discharge Summary/Plan Comment DC Time >30 min.: Yes Discharge Summary/Plan Comment: FINAL DIAGNOSIS Organic brain syndrome Respiratory failure Pneumonia Anemia Dysphagia Renal failure Pulmonary embolism, clinically suspect Ileus S/P Left intertrochanteric fracture sustained in ground level fall Recent CVA - Patient Data Vitals - Most Recent: Last Vital Signs Temp 97.2 F 04/14/17 14:00 Pulse 74 04/14/17 14:00 Resp 28 H 04/14/17 14:00 BP 140/60 04/13/17 22:15 Pulse Ox 83 L 04/14/17 14:00 Weight - Most Recent: 168 lb I&O - Last 24 hours: Intake & Output 04/14/17 04/15/17 04/15/17 22:59 06:59 14:59 Intake Total 420 Balance 420 Lab Results - Last 24 hrs: Laboratory Results - last 24 hr 04/14/17 04/14/17 04/14/17 Range/Units 09:45 09:45 10:00 WBC 29.2 H (5.0-10.0) 10^3/uL RBC 3.81 L (4.50-6.00) 10^6/uL Hgb 10.3 L (13.0-17.0) g/dL Hct 30.5 L (40.0-52.0) % MCV 79.9 L (82.0-92.0) fL MCH 27.0 (27.0-31.0) pg MCHC 33.8 (32.0-36.0) g/dL RDW 15.2 H (11.5-14.5) % Plt Count 485 H (150-300) 10^3/uL MPV 6.9 L (7.4-10.4) fL Neut % (Auto) 93.6 H (50.0-70.0) % Lymph % (Auto) 2.5 L (20.0-40.0) % [place] % (Auto) 3.8 (2.0-8.0) % Eos % (Auto) 0.1 L (1.0-3.0) % Baso % (Auto) 0.0 (0.0-1.0) % Neut # (Auto) 27.4 H (2.5-7.0) 10^3/uL Lymph # (Auto) 0.7 L (1.0-4.0) 10^3/uL [place] # (Auto) 1.1 H (0.1-0.8) 10^3/uL Eos # (Auto) 0.0 L (0.1-0.3) 10^3/uL Baso # (Auto) 0.0 (0.0-0.1) 10^3/uL PT 59.2 H (8.9-11.4) SEC INR 5.5 H* (0.9-1.1) Sodium 135 L (136-145) mmol/L Potassium 4.9 (3.3-5.3) mmol/L Chloride 102 (98-115) mmol/L Carbon Dioxide 20.7 L (21.0-32.0) mmol/L BUN 73 H* (6-25) mg/dL Creatinine 1.98 H (0.51-1.17) mg/dL Est Cr Clr Drug Dosing 23.30 mL/min Estimated GFR (MDRD) 32 mL/min Glucose 239 H (70-110) mg/dL POC Glucose (74-106) mg/dl Calcium 8.0 L (8.7-10.3) mg/dL 04/14/17 Range/Units 11:21 WBC (5.0-10.0) 10^3/uL RBC (4.50-6.00) 10^6/uL Hgb (13.0-17.0) g/dL Hct (40.0-52.0) % MCV (82.0-92.0) fL MCH (27.0-31.0) pg MCHC (32.0-36.0) g/dL RDW (11.5-14.5) % Plt Count (150-300) 10^3/uL MPV (7.4-10.4) fL Neut % (Auto) (50.0-70.0) % Lymph % (Auto) (20.0-40.0) % [place] % (Auto) (2.0-8.0) % Eos % (Auto) (1.0-3.0) % Baso % (Auto) (0.0-1.0) % Neut # (Auto) (2.5-7.0) 10^3/uL Lymph # (Auto) (1.0-4.0) 10^3/uL [place] # (Auto) (0.1-0.8) 10^3/uL Eos # (Auto) (0.1-0.3) 10^3/uL Baso # (Auto) (0.0-0.1) 10^3/uL PT (8.9-11.4) SEC INR (0.9-1.1) Sodium (136-145) mmol/L Potassium (3.3-5.3) mmol/L Chloride (98-115) mmol/L Carbon Dioxide (21.0-32.0) mmol/L BUN (6-25) mg/dL Creatinine (0.51-1.17) mg/dL Est Cr Clr Drug Dosing mL/min Estimated GFR (MDRD) mL/min Glucose (70-110) mg/dL POC Glucose 221 H (74-106) mg/dl Calcium (8.7-10.3) mg/dL Med Orders - Current: Current Medications Discontinued Medications Acetaminophen (Tylenol Solution 160 Mg/5 Ml) 512 mg PO Q4H [facility] Last Admin: 04/12/17 17:02 Dose: Not Given Acetaminophen (Tylenol) 325 - 650 mg RECTAL Q4H PRN PRN Reason: Pain Last Admin: 04/12/17 16:58 Dose: 650 mg Acetaminophen (Tylenol) 650 mg RECTAL Q6HR [facility] Last Admin: 04/14/17 16:40 Dose: Not Given Enoxaparin Sodium (Lovenox) 85 mg SUBCUT DAILY [facility] Last Admin: 04/13/17 08:21 Dose: 85 mg Fentanyl (Duragesic) 12 mcg TRDERM Q72H [facility] Last Admin: 04/14/17 12:05 Dose: 12 mcg Piperacillin Sod/Tazobactam (Sod 3.375 gm/ Sodium Chloride) 65 mls @ 130 mls/ hr IV Q6HR [facility] Last Admin: 04/12/17 13:50 Dose: 130 mls/hr Piperacillin Sod/Tazobactam (Sod 3.375 gm/ Sodium Chloride) 65 mls @ 130 mls/ hr IV Q6HR [facility] Piperacillin Sod/Tazobactam (Sod 3.375 gm/ Sodium Chloride) 65 mls @ 130 mls/ hr IV Q6H [facility] Last Admin: 04/13/17 08:11 Dose: 130 mls/hr Dextrose/Sodium Chloride (Dextrose 5%-1/2 Ns) 1,000 mls @ 55 mls/hr IV ASDIRECTED [facility] Last Admin: 04/12/17 18:14 Dose: 55 mls/hr Levofloxacin/Dextrose (Levaquin In D5w 500 Mg/100 Ml) 100 mls @ 100 mls/hr IV Q48H [facility] Last Admin: 04/13/17 09:38 Dose: 100 mls/hr Levofloxacin/Dextrose (Levaquin In D5w 250 Mg/50 Ml) 50 mls @ 50 mls/hr IV Q48H [facility] Last Admin: 04/13/17 10:49 Dose: 50 mls/hr Sodium Chloride (Normal Saline) 1,000 mls @ 100 mls/hr IV ASDIRECTED [facility] Last Admin: 04/14/17 13:17 Dose: 50 mls/hr Piperacillin/Tazobactam/Dextrose (Zosyn In Dextrose Iso-Osmotic 3.375 Gm) 50 mls @ 100 mls/hr IV Q6H [facility] Sodium Chloride (Normal Saline) 250 mls @ 999 mls/hr IV .BOLUS ONE Stop: 04/13/17 13:05 Last Admin: 04/13/17 12:30 Dose: 999 mls/hr Vancomycin HCl 1 gm/ Sodium (Chloride) 270 mls @ 180 mls/hr IV Q48H [facility] Last Admin: 04/13/17 17:24 Dose: 180 mls/hr Sodium Chloride (Normal Saline) 300 mls @ 999 mls/hr IV .BOLUS ONE Stop: 04/14/17 10:52 Last Admin: 04/14/17 12:51 Dose: Not Given Sodium Chloride (Normal Saline) 500 mls @ 999 mls/hr IV .BOLUS ONE Stop: 04/14/17 11:04 Last Admin: 04/14/17 12:12 Dose: 999 mls/hr Sodium Chloride (Normal Saline) 1,000 mls @ 50 mls/hr IV ASDIRECTED [facility] Insulin Aspart (Novolog) 0 unit SUBCUT TIDMEALS MELY PRN Reason: Protocol Last Admin: 04/14/17 17:41 Dose: Not Given Lidocaine (Lidoderm 5%) 700 mg TOP DAILY [facility] Last Admin: 04/14/17 12:14 Dose: Not Given Lorazepam (Ativan) 0.25 mg IVPUSH Q4H PRN PRN Reason: anxiety Last Admin: 04/13/17 12:01 Dose: 0.25 mg Lorazepam (Ativan) 0.25 mg IVPUSH ONETIME ONE Stop: 04/13/17 14:26 Last Admin: 04/13/17 14:35 Dose: 0.25 mg Lorazepam (Ativan) 0.5 - 1 mg IVPUSH Q6H PRN PRN Reason: Agitation Last Admin: 04/14/17 01:49 Dose: 1 mg Lorazepam (Ativan) 1 mg IVPUSH Q3H PRN PRN Reason: Anxiety Last Admin: 04/14/17 16:51 Dose: 1 mg Lorazepam (Ativan) 1 mg IVPUSH Q1H PRN PRN Reason: Agitation Last Admin: 04/14/17 21:08 Dose: 1 mg Metoclopramide HCl (Reglan) 5 mg IVPUSH Q8H [facility] Last Admin: 04/12/17 14:07 Dose: Not Given Metoclopramide HCl (Reglan) 5 mg IVPUSH Q8HR [facility] Metoclopramide HCl (Reglan) 5 mg IVPUSH Q8H [facility] Last Admin: 04/14/17 21:08 Dose: Not Given Miscellaneous Information (Remove Patch) 1 ea TRDERM BEDTIME [facility] Last Admin: 04/14/17 20:22 Dose: Not Given Morphine Sulfate (Morphine) 1 - 4 mg IV Q4H PRN PRN Reason: pain Last Admin: 04/13/17 12:04 Dose: 4 mg Morphine Sulfate (Morphine) 1 - 4 mg IV Q4H PRN PRN Reason: pain Last Admin: 04/14/17 17:30 Dose: 4 mg Morphine Sulfate (Morphine) 2 mg IVPUSH Q1H PRN PRN Reason: Pain Last Admin: 04/14/17 21:08 Dose: 2 mg Nystatin (Nystop) 0 gm TOP BID [facility] Last Admin: 04/14/17 20:21 Dose: Not Given Ondansetron HCl (Zofran) 4 mg IVPUSH Q4H PRN PRN Reason: Nausea/Vomiting Saliva Substitute (Herbie-Stir Oral [place]) 0 ml MUCMEM Q1H PRN PRN Reason: dry mouth Sodium Chloride (Syrex Flush) 5 ml FLUSH Q8HR PRN PRN Reason: Keep Vein Open Last Admin: 04/12/17 18:38 Dose: 5 ml Vancomycin HCl (Pharmacy To Dose - Vancomycin) 1 dose .XX ASDIRECTED MELY *Q Meaningful Use (DIS) - VTE *Q VTE Criteria *Q: - Stroke *Q Stroke Criteria *Q: - AMI *Q AMI Criteria *Q:
== END 2017-04-14 21:40 | disposition expired | DRG 193 ==
LOC: KA.MS 11:31
PROVIDERS: ADMIT Nurse Practitioner Family; ATTEND Family Medicine
PROC: 30233N1 Transfusion of Nonautologous Red Blood Cells into Peripheral Vein, Percutaneous Approach (ICD-10-PCS; principal; 2017-04-13)
DX: J18.9 Pneumonia, unspecified organism (principal); A41.9 Sepsis, unspecified organism; J96.90 Respiratory failure, unspecified, unspecified whether with hypoxia or hypercapnia; I26.99 Other pulmonary embolism without acute cor pulmonale; N17.9 Acute kidney failure, unspecified; I69.354 Hemiplegia and hemiparesis following cerebral infarction affecting left non-dominant side; K56.7 Ileus, unspecified; Y95 Nosocomial condition; Z51.5 Encounter for palliative care; Z66 Do not resuscitate; F09 Unspecified mental disorder due to known physiological condition; D64.9 Anemia, unspecified; E11.22 Type 2 diabetes mellitus with diabetic chronic kidney disease; R13.10 Dysphagia, unspecified; I12.9 Hypertensive chronic kidney disease with stage 1 through stage 4 chronic kidney disease, or unspecified chronic kidney disease; N18.3 Chronic kidney disease, stage 3 (moderate); K21.9 Gastro-esophageal reflux disease without esophagitis; F32.9 Major depressive disorder, single episode, unspecified; E86.0 Dehydration; D47.3 Essential (hemorrhagic) thrombocythemia; S72.142D Displaced intertrochanteric fracture of left femur, subsequent encounter for closed fracture with routine healing; W18.30XD Fall on same level, unspecified, subsequent encounter; Z95.1 Presence of aortocoronary bypass graft; Z87.891 Personal history of nicotine dependence; Z79.82 Long term (current) use of aspirin; Z79.02 Long term (current) use of antithrombotics/antiplatelets; Z79.4 Long term (current) use of insulin; Z98.890 Other specified postprocedural states; I25.10 Atherosclerotic heart disease of native coronary artery without angina pectoris
CPT/HCPCS: 36415; 36430; 80048; 82962; 83605; 85025; 85610; 86140; 86850; 86900; 86901; 86920; 86922; 92526-GN; 92611-GN; 93005; A9270-GY; J1650; J1815-GY; J1956; J2060; J2270; J2543; J2765; J3370; J7030; J7042; J7050; P9016